=== PATIENT | male | born 1970 | race Caucasian/White ===

== ENCOUNTER 2016-07-17 13:38 | Inpatient (IN) | payer SELFPAY ==
[~2016-07-17] VITALS: Ht 177.8 cm; Wt 54.6 kg
[~2016-07-17 13:38] MED LIST: CLIN1CAP5 PO; MULT1TAB84 PO; PERI0.126 SWISH-SPIT; VENTAER INH
[2016-07-17 13:58] VITALS: BP 113/80; PULSE 96; RESP 20; TEMP 98.4
[2016-07-17] MEDS ORDERED: SODIUM CHLORIDE 0.9% FLUSH 10 ML FLUSH IV FLUSH PRN ×2 (14:00→17:30)
--- NOTE | 2016-07-17 14:15 | PD ---
HPI Chief Complaint: Facial Pain or Swelling Time Seen by Provider: 14:12 (Darrell Anthony) Time Seen by Provider: 13:48 (Bassem Parnell MD) Travel History International Travel<30 days: No Contact w/Intl Traveler<30days: No Traveled to known affect area: No (Darrell Anthony) History of Present Illness HPI Patient comes back to the emergency department complaining of continued right jaw pain ongoing over the past 4 months. Patient states that the pain ongoing ever since having surgery done originally June of last year by Dr. Joseph. Patient was noted to be in the hospital last August for osteomyelitis. Patient states he has not followed up with Dr. Joseph secondary to being homeless and and his office not being near where he typically lives. Patient's pain is worse with eating or chewing. Patient has tried [id number] Goody's powder with minimal relief. Patient denies any known injury fevers, nausea, vomiting, chest pain, shortness of breath. Patient has a history of alcohol abuse, tobacco abuse, cocaine abuse, COPD, and pneumonia. (Darrell Anthony) PFSH Past Medical History Hx Anticoagulant Therapy: No Asthma: Yes Blood Disorders: No Cancer: No Cardiovascular Problems: Yes (HTN) Chemotherapy: No COPD: Yes Diminished Hearing: No Endocrine: No Gastrointestinal Disorders: No Genitourinary: No Headaches: Yes Hypertension: Yes Immune Disorder: No Implanted Vascular Access Dvce: No Musculoskeletal: Yes Neurologic: Yes (CHRONIC BACK PAIN) Psychiatric: No Reproductive: No Respiratory: Yes (ASTHMA, COPD) Pneumonia: Yes Radiation Therapy: No Sleep Apnea: Yes (Darrell Anthony) Past Surgical History Body Medical Devices: METAL PLACE IN JAW/ FACE AREA Oral Surgery: Yes (METAL PLATE IN JAW) Other Surgery: Yes ("Plates in (R) jaw) (Darrell Anthony) Social History Alcohol Use: Yes ("beer all day") Tobacco Use: Yes Substance Use: No (Darrell Anthony) Allergies-Medications (Allergen,Severity, Reaction): Coded Allergies: *MDRO Multi-Drug Resistant Organism (Verified Adverse Reaction, Unknown, 02/28/16) MRSA (thigh wound) 2003 MRSA PCR (nares) positive - 07/08/15 Reported Meds & Prescriptions Reported Meds & Active Scripts Active Peridex Liq (Chlorhexidine Gluconate (Mouth) Liq) 0.12% Soln 15 Ml SWISH-SPIT BID 14 Days Reported Multivitamin Adults (Multiple Vitamins W/ Minerals) 1 Tab 1 Tab PO DAILY Ventolin Hfa 18 GM Inh (Albuterol Sulfate) 90 Mcg/Act Aer 2 Puff INH Q4H PRN (Bassem Parnell MD) Review of Systems Except as stated in HPI: all other systems reviewed are Neg (Darrell Anthony ) Physical Exam Narrative GENERAL: Well-developed, well nourished, in no acute distress, and non-ill appearing. SKIN: Focused skin assessment warm and dry. HEAD: Atraumatic. Normocephalic. EYES: Pupils equal and round. EOMI. No scleral icterus. No injection or drainage. ENT: No nasal bleeding or discharge. Mucous membranes pink and moist. Poor dentition with no visible or palpable abscess. There is swelling noted of the right mandible patient reports tender to palpation. This appears unchanged when compared to previous documentations. Floor of the mouth, submandibular, and submental are all to soft palpation. Uvula is midline. NECK: Trachea midline. No cervical lymphadenopathy. Supple. No nuclear rigidity. CARDIOVASCULAR: Regular rate and rhythm. No murmur appreciated. RESPIRATORY: No accessory muscle use. No respiratory distress. Clear to auscultation. Breath sounds equal bilaterally. MUSCULOSKELETAL: No obvious deformities. No clubbing. No cyanosis. No edema. Full range of motion. NEUROLOGICAL: Awake and alert. No obvious cranial nerve deficits. Motor grossly within normal limits. Normal speech. PSYCHIATRIC: Appropriate mood and affect; insight and judgment normal. (Darrell Anthony) Data Data Last Documented VS Vital Signs Date Time Temp Pulse Resp B/P Pulse Ox O2 Delivery O2 Flow Rate FiO2 07/17/16 13:58 98.4 96 20 113/80 (Bassem Parnell MD) Orders Basic Metabolic Panel (Bmp) (07/17/16 14:00) Complete Blood Count With Diff (07/17/16 14:00) Iv Access Insert/Monitor (07/17/16 14:00) Ecg Monitoring (07/17/16 14:00) Oximetry (07/17/16 14:00) Sodium Chloride 0.9% Flush (Ns Flush) (07/17/16 14:00) Ct Facial Bones W Iv Contrast (07/17/16 ) C-Reactive Protein (Crp) (07/17/16 14:00) Iohexol 350 Inj (Omnipaque 350 Inj) (07/17/16 16:53) Ampicillin-Sulbactam Inj (Unasyn Inj) (07/17/16 17:15) Vancomycin Inj (Vancomycin Inj) (07/17/16 17:15) Morphine Inj (Morphine Inj) (07/17/16 17:15) Ondansetron Inj (Zofran Inj) (07/17/16 17:15) Admit Order (Ed Use Only) (07/17/16 17:21) (Bassem Parnell MD) Labs Laboratory Tests Test 07/17/16 14:40 White Blood Count 6.4 TH/MM3 Red Blood Count 3.95 MIL/MM3 Hemoglobin 12.4 GM/DL Hematocrit 36.9 % Mean Corpuscular Volume 93.2 FL Mean Corpuscular Hemoglobin 31.4 PG Mean Corpuscular Hemoglobin 33.7 % Concent Red Cell Distribution Width 13.6 % Platelet Count 57 TH/MM3 Mean Platelet Volume 9.7 FL Neutrophils (%) (Auto) 64.1 % Lymphocytes (%) (Auto) 24.2 % Monocytes (%) (Auto) 8.6 % Eosinophils (%) (Auto) 1.7 % Basophils (%) (Auto) 1.4 % Neutrophils # (Auto) 4.1 TH/MM3 Lymphocytes # (Auto) 1.5 TH/MM3 Monocytes # (Auto) 0.5 TH/MM3 Eosinophils # (Auto) 0.1 TH/MM3 Basophils # (Auto) 0.1 TH/MM3 CBC Comment AUTO DIFF Differential Comment AUTO DIFF CONFIRMED Platelet Estimate LOW Platelet Morphology Comment NORMAL Sodium Level 138 MEQ/L Potassium Level 4.1 MEQ/L Chloride Level 108 MEQ/L Carbon Dioxide Level 21.8 MEQ/L Anion Gap 8 MEQ/L Blood Urea Nitrogen 4 MG/DL Creatinine 0.64 MG/DL Estimat Glomerular Filtration 133 ML/MIN Rate Random Glucose 69 MG/DL Calcium Level 8.2 MG/DL C-Reactive Protein 0.57 MG/DL (Bassem Parnell MD) MDM Medical Decision Making Medical Screen Exam Complete: Yes Emergency Medical Condition: Yes Interpretation(s) CT of the face her by radiologist shows: Extensive swelling involving the grant manager space on the right characteristic of cellulitis and myositis without discrete osteomyelitis. Differential Diagnosis Abscess, cellulitis, osteomyelitis, medical noncompliance, other Narrative Course Patient's exam. Initial laboratory and radiological studies were obtained and reviewed. Patient was placed on a cardiac rehab nurse. IV was established. Patient was given IV antibiotics. Morphine for pain and Zofran for nausea. Discussed all findings plan of care with patient, who is agreeable for admission. All questions were answered. Discussed all findings and plan care of Dr. Parnell, who is in agreement with plan of care and disposition. Patient remained stable throughout ED course. (Darrell Anthony) Physician Communication Physician Communication [phone] Martinez, who is agreeable to admit the patient. ( Darrell Anthony) Diagnosis Primary Impression: Facial cellulitis Additional Impression: Myositis Qualified Code: M60.9 - Myositis of other site, unspecified myositis type Admitting Information Admitting Physician Requests: Admit (Darrell Anthony) Scripts Amoxicillin-Clavulanate (Augmentin)875-125 mg [id number] Mg PO BID #14 TAB Ref 0 not for use in CrCl <30 ml/min. Prov:Karmen Martinez DO 07/19/16 Condition: Stable Darrell Anthony July 17, 2016 14:15 Bassem Parnell MD July 19, 2016 22:06
[2016-07-17 15:01] LABS: AUTOMATED NEUTROPHIL # 4.1 TH/MM3 (1.8-7.7); BASOPHIL # 0.1 TH/MM3 (0-0.2); BASOPHIL % 1.4 % (0.0-2.0); EOSINOPHIL # 0.1 TH/MM3 (0-0.4); EOSINOPHIL % 1.7 % (0.0-4.0); HEMATOCRIT 36.9 % (39.0-51.0); LYMPH % 24.2 % (9.0-44.0); LYMPHOCYTE # 1.5 TH/MM3 (1.0-4.8); MEAN CELL VOLUME 93.2 FL (80.0-100.0); MEAN CORPUSCULAR HEMOGLOBIN 31.4 PG (27.0-34.0); MEAN CORPUSCULAR HGB CONC 33.7 % (32.0-36.0); MONO % 8.6 % (0.0-8.0); NEUT % 64.1 % (16.0-70.0); PLATELET COUNT 57 TH/MM3 (150-450); RED BLOOD COUNT 3.95 MIL/MM3 (4.50-5.90); RED CELL DISTRIBUTION WIDTH 13.6 % (11.6-17.2); WHITE BLOOD COUNT 6.4 TH/MM3 (4.0-11.0)
[2016-07-17 15:07] LABS: HEMO FLAGS AUTO DIFF
[2016-07-17 15:48] LABS: BICARBONATE 21.8 MEQ/L (21.0-32.0); POTASSIUM 4.1 MEQ/L (3.5-5.1)
[2016-07-17 16:10] LABS: PLATELET ESTIMATE SMEAR LOW (NORMAL); PLATELET MORPHOLOGY NORMAL (NORMAL); SCAN/DIFF AUTO DIFF CONFIRMED
[2016-07-17] MEDS ORDERED: IOHEXOL 350 MG/ML 10 ML VIAL (for RAD DIAG) IV ONE (16:53)
--- NOTE | 2016-07-17 17:01 | RADRPT ---
EXAM DATE/TIME: 07/17/2016 16:16 [facility] COMPARISON: CT FACIAL BONES W CONTRAST, February 28, 2016, 19:39. INDICATIONS : Jaw surgery with ongoing swelling. IV CONTRAST: 98 cc Omnipaque 350 (iohexol) IV RADIATION DOSE: 45.48 CTDIvol (mGy) MEDICAL HISTORY : Hypertension. SURGICAL HISTORY : jaw surgery ENCOUNTER: Subsequent ACUITY: 7 - 11 months PAIN SCALE: 6/10 LOCATION: Right jaw TECHNIQUE: Volumetric scanning of the facial bones was performed. Using automated exposure control and adjustme nt of the mA and/or kV according to patient size, radiation dose was kept as low as reasonably achiev able to obtain optimal diagnostic quality images. FINDINGS: There is internal fixation of the mandible with an ununited fracture just to the right of the midline . There is also ununited fracture involving the base of the condylar neck on the right side. Malleabl e plate is present. There is no bony destruction or periosteal reaction to suggest osteomyelitis. The condylar heads are not dislocated. Soft tissue images demonstrate marked swelling and edema involving the masseter muscle as well as the lateral pterygoid with edema and fluid involving the staff antisubmarine officer space. This is at least in part expeller worker jen as this was present in January 2016 but now appears worse. There is no evidence of abscess. Reac tive adenopathy is present in the submandibular space and group 2 on the right. CONCLUSION: 1. Extensive swelling involving the staff antisubmarine officer space on the right characteristic of cellulitis and my ositis without discrete osteomyelitis. Bruce Hankins MD on July 17, 2016 at 16:55 Board Certified Radiologist. This report was verified electronically.
[2016-07-17] MEDS ORDERED: ONDANSETRON HCL 4 MG/2 ML VIAL IV PUSH ONE (17:15)
[2016-07-17] MEDS ORDERED: MORPHINE SULFATE 4 MG/ML INJ IV PUSH ONE (17:15)
[2016-07-17] MEDS ORDERED: VANCOMYCIN INJ 1,000 MG in SODIUM CHLOR 0.9% 250 ML INJ 250 ML IV ONE (17:15)
[2016-07-17] MEDS ORDERED: AMPICILLIN-SULBACTAM INJ 3 GM VIAL IM ONE (17:15)
[2016-07-17] MEDS ORDERED: ACETAMINOPHEN 325 MG TAB PO PRN (17:30)
[2016-07-17] MEDS ORDERED: NALOXONE HCL 0.4 MG/ML AMP IV PRN (17:30)
[2016-07-17] MEDS ORDERED: MAGNESIUM HYDROXIDE SUSP 30 ML CUP PO PRN (17:30)
[2016-07-17] MEDS ORDERED: ONDANSETRON HCL 4 MG/2 ML VIAL IVP PRN (17:30)
[2016-07-17] MEDS ORDERED: MORPHINE SULFATE 4 MG/ML INJ IV PUSH PRN (17:30)
--- NOTE | 2016-07-17 17:33 | HHI.HP ---
HPI Service [facility] Primary Care Physician Monie Granados MD Admission Diagnosis facial cellulitis and myositis Diagnoses: Chief Complaint: Right facial swelling, pain. Travel History International Travel<30 Days: No Contact w/Intl Traveler <30 Da: No Traveled to Known Affected Are: No History of Present Illness Mr. Forrester is a 46-year-old male with a history of bilateral mandible fractures who presents to the emergency department on 07/17/2016 with right jaw pain for the last 4 months. He reports worsening pain with eating or chewing. However he is able to maintain soft diet and no airway compromise. He reports subjective fever and chills as well as dizziness. Patient underwent removal of failed jaw hardware on the right side on October 07, 2015. Patient was discharged on Augmentin. He was supposed to follow-up with Dr. Joseph. However patient is homeless and has been unable to follow-up with Dr. Joseph. He denies any changes in bowel or bladder habits. Denies any chest pain, shortness of breath, nausea or vomiting. Review of Systems Except as stated in HPI: all other systems reviewed are Neg Past Family Social History Past Medical History Hypertension, COPD, pneumonia, chronic back pain, asthma Past Surgical History ORIF of bilateral mandibles. Reported Medications Peridex Liq (Chlorhexidine Gluconate (Mouth) Liq) 0.12% Soln 15 Ml SWISH-SPIT BID 14 Days Clindamycin (Clindamycin HCl) 150 Mg Cap 300 Mg PO Q6H 10 Days Reported Multivitamin Adults (Multiple Vitamins W/ Minerals) 1 Tab 1 Tab PO DAILY Ventolin Hfa 18 GM Inh (Albuterol Sulfate) 90 Mcg/Act Aer 2 Puff INH Q4H PRN Allergies: Coded Allergies: *MDRO Multi-Drug Resistant Organism (Verified Adverse Reaction, Unknown, 02/28/16) MRSA (thigh wound) 2003 MRSA PCR (nares) positive - 07/08/15 Family History Motherdiabetes DadCOPD and asthma. Social History Patient reports smoking 1 pack a day. Drinks about 4 packs a day. Physical Exam Vital Signs Vital Signs Date Time Temp Pulse Resp B/P Pulse Ox O2 Delivery O2 Flow Rate FiO2 07/17/16 13:58 98.4 96 20 113/80 Physical Exam GENERAL: This is a well-nourished, well-developed patient, in no apparent distress. SKIN: No rashes, ecchymoses or lesions. Warm and dry. HEAD: Atraumatic. Normocephalic. No temporal or scalp tenderness. EYES: Pupils equal round and reactive. No injection or drainage. ENT: Nose without bleeding, purulent drainage or septal hematoma. Airway patent. Right jaw area is severely swollen. Tender to palpation. NECK: Trachea midline. No lymphadenopathy. Supple, nontender, no meningeal signs. CARDIOVASCULAR: Regular rate and rhythm without murmurs, gallops, or rubs. No JVD. RESPIRATORY: Clear to auscultation. Breath sounds equal bilaterally. No wheezes , rales, or rhonchi. GASTROINTESTINAL: Abdomen soft, non-tender, nondistended. No guarding. MUSCULOSKELETAL: Extremities without clubbing, cyanosis, or edema. NEUROLOGICAL: Awake and alert. Cranial nerves II through XII intact. No focal neurological deficits. Normal speech. Laboratory Laboratory Tests Test 07/17/16 14:40 White Blood Count 6.4 Red Blood Count 3.95 Hemoglobin 12.4 Hematocrit 36.9 Mean Corpuscular Volume 93.2 Mean Corpuscular Hemoglobin 31.4 Mean Corpuscular Hemoglobin 33.7 Concent Red Cell Distribution Width 13.6 Platelet Count 57 Mean Platelet Volume 9.7 Neutrophils (%) (Auto) 64.1 Lymphocytes (%) (Auto) 24.2 Monocytes (%) (Auto) 8.6 Eosinophils (%) (Auto) 1.7 Basophils (%) (Auto) 1.4 Neutrophils # (Auto) 4.1 Lymphocytes # (Auto) 1.5 Monocytes # (Auto) 0.5 Eosinophils # (Auto) 0.1 Basophils # (Auto) 0.1 CBC Comment AUTO DIFF Differential Comment AUTO DIFF CONFIRMED Platelet Estimate LOW Platelet Morphology Comment NORMAL Sodium Level 138 Potassium Level 4.1 Chloride Level 108 Carbon Dioxide Level 21.8 Anion Gap 8 Blood Urea Nitrogen 4 Creatinine 0.64 Estimat Glomerular Filtration 133 Rate Random Glucose 69 Calcium Level 8.2 C-Reactive Protein 0.57 Result Diagram: 07/17/16 1440 07/17/16 1440 Imaging Last Impressions Maxillofacial CT 5/19/17 0000 Signed Impressions: Service Date/Time: Sunday, July 17, 2016 16:16 - CONCLUSION: 1. Extensive swelling involving the quality control director space on the right characteristic of cellulitis and myositis without discrete osteomyelitis. Bruce Hankins MD Assessment and Plan Problem List: (1) Cellulitis of quality control director space of mouth ICD Code: K12.2 Status: Acute (2) Myositis ICD Code: M60.9 Status: Acute (3) Alcohol abuse ICD Code: F10.10 Status: Chronic (4) Tobacco abuse ICD Code: Z72.0 Status: Chronic Assessment and Plan Mr. Forrester is a 46-year-old male with a history of bilateral mandible fracture , recent surgery for failed hardware on the right side of the jaw, presented to the emergency department on 07/17/2016 due to ongoing right jaw pain and swelling. He reports subjective fever, chills, dizziness. He is able to maintain nutrition intact airway. CT study indicates quality control director space cellulitis and myositis. - Right quality control director space cellulitis - Right quality control director myositis. - Patient does not have symptoms of acute infection other than subjective fever, chills. - Will consult Oral surgery. Start Unasyn 3g [id number] for now. We can switch to Oral abx after Oral surgery evaluation. - Percocet PRN, Morphine PRN for pain. - Alcohol abuse - Tobacco abuse - Patient is strongly encouraged not to use tobacco or alcohol. He verbalized understanding. - Initiate CIWA protocol Full code. SCDs, Ambulation. Physician Certification 2 Midnight Certification Type: Admission for Inpatient Services Order for Inpatient Services The services are ordered in accordance with Medicare regulations or non- Medicare payer requirements, as applicable. In the case of services not specified as inpatient-only, they are appropriately provided as inpatient services in accordance with the 2-midnight benchmark. Estimated LOS (days): 2 days is the estimated time the patient will need to remain in the hospital, assuming treatment plan goals are met and no additional complications. Post-Hospital Plan: Home Problem Qualifiers (1) Myositis: Qualified Code: M60.9 - Myositis of other site, unspecified myositis type Karmen Martinez DO July 17, 2016 5:33 pm
[2016-07-17] MEDS ORDERED: SODIUM CHLOR 0.9% 250 ML INJ 250 ML ONE (17:51)
[2016-07-17] MEDS: SODIUM CHLORIDE 0.9% FLUSH 10 ML FLUSH IV FLUSH SCH (20:10)
[2016-07-17] MEDS ORDERED: FLUMAZENIL 0.5 MG/5 ML VIAL IV PUSH PRN (20:30)
[2016-07-17] MEDS ORDERED: LORazepam 2 MG TAB PO PRN (20:30)
[2016-07-17] MEDS ORDERED: LORazepam 2 MG/ML VIAL IV PUSH PRN ×4 (20:30)
[2016-07-17 21:00] VITALS: BP 126/83; PULSE 100; RESP 17; TEMP 97.9; O2SAT 93
[2016-07-17] MEDS ORDERED: REMOVE OLD PATCH T-DERMAL SCH (21:00)
[2016-07-17] MEDS: oxyCODONE/ACETAMINOPHEN 7.5 MG/325 MG TAB PO PRN (21:46)
[2016-07-17] MEDS: NICOTINE 14 MG/24 HR PATCH T-DERMAL SCH (21:46)
[2016-07-18] VITALS: BP 120/80; PULSE 88; RESP 19; TEMP 97.1; O2SAT 94
[2016-07-18] MEDS: oxyCODONE/ACETAMINOPHEN 7.5 MG/325 MG TAB PO PRN ×3 (05:16→21:14)
[2016-07-18] MEDS: LORazepam 1 MG TAB PO PRN ×3 (05:24→21:13)
[2016-07-18 05:30] VITALS: BP 118/80; PULSE 80; RESP 18; TEMP 97.7; O2SAT 98
[2016-07-18 06:48] LABS: AUTOMATED NEUTROPHIL # 3.2 TH/MM3 (1.8-7.7); BASOPHIL # 0.1 TH/MM3 (0-0.2); BASOPHIL % 1.6 % (0.0-2.0); EOSINOPHIL # 0.1 TH/MM3 (0-0.4); EOSINOPHIL % 1.6 % (0.0-4.0); LYMPH % 23.1 % (9.0-44.0); LYMPHOCYTE # 1.2 TH/MM3 (1.0-4.8); MEAN CELL VOLUME 92.2 FL (80.0-100.0); MEAN CORPUSCULAR HEMOGLOBIN 31.2 PG (27.0-34.0); MEAN CORPUSCULAR HGB CONC 33.8 % (32.0-36.0); NEUT % 60.7 % (16.0-70.0); PLATELET COUNT 38 TH/MM3 (150-450); RED BLOOD COUNT 4.01 MIL/MM3 (4.50-5.90); RED CELL DISTRIBUTION WIDTH 13.4 % (11.6-17.2); WHITE BLOOD COUNT 5.3 TH/MM3 (4.0-11.0)
[2016-07-18 07:00] LABS: HEMO FLAGS AUTO DIFF
[2016-07-18 07:10] LABS: BICARBONATE 24.4 MEQ/L (21.0-32.0); POTASSIUM 3.6 MEQ/L (3.5-5.1)
[2016-07-18 08:00] VITALS: BP 104/64; PULSE 86; RESP 16; TEMP 98.8; O2SAT 94
[2016-07-18] MEDS ORDERED: CLINDAMYCIN 150 MG CAP PO SCH (09:00)
[2016-07-18] MEDS ORDERED: LEVOFLOXACIN 750 MG TAB PO SCH (09:00)
[2016-07-18] MEDS ORDERED: PNEUMOCOCCAL POLYVALENT INJ 25 MCG/0.5 ML SYR IM ONE (09:00)
[2016-07-18] MEDS ORDERED: INFLUENZA VIRUS VACCINE (QUADRIVALENT) 0.5 ML SYR IM ONE (09:00)
[2016-07-18] MEDS: SODIUM CHLORIDE 0.9% FLUSH 10 ML FLUSH IV FLUSH SCH ×2 (09:08→21:15)
[2016-07-18 09:28] LABS: PLATELET ESTIMATE SMEAR LOW (NORMAL); PLATELET MORPHOLOGY ENLARGED (NORMAL); SCAN/DIFF AUTO DIFF CONFIRMED; TARGET CELLS 1+ (NORMAL)
[2016-07-18] MEDS: AMPICILLIN-SULBACTAM INJ 3 GM in SODIUM CHLORIDE 0.9% INJ 100 ML IV SCH ×3 (10:00→21:15)
[2016-07-18 12:00] VITALS: BP 110/70; PULSE 64; RESP 18; TEMP 98.9; O2SAT 94
--- NOTE | 2016-07-18 13:39 | HHI.PR ---
Subjective Remarks Follow up for right classroom coordinator space cellulitis, myositis. Patient is doing well. He reports subjective fever. Pain continues to be persistent. Oral surgery has not evaluated patient yet. Objective Vitals Vital Signs Date Time Temp Pulse Resp B/P Pulse Ox O2 Delivery O2 Flow Rate FiO2 07/18/16 12:00 98.9 64 18 110/70 94 07/18/16 08:00 98.8 86 16 104/64 94 07/18/16 05:30 97.7 80 18 118/80 98 07/18/16 00:00 97.1 88 19 120/80 94 07/17/16 22:46 18 07/17/16 21:00 97.9 100 17 126/83 93 07/17/16 13:58 98.4 96 20 113/80 I/O 07/17/16 07/17/16 07/17/16 07/18/16 07/18/16 07/18/16 07:00 15:00 23:00 07:00 15:00 23:00 Intake Total 900 ml 800 ml 100 ml Balance 900 ml 800 ml 100 ml Intake Oral 900 ml 800 ml IV Total 100 ml # Voids 1 2 # Bowel Movements 0 0 1 Result Diagram: 07/18/16 0541 07/18/16 0541 Imaging Last Impressions Maxillofacial CT 07/17/16 0000 Signed Impressions: Service Date/Time: Sunday, July 17, 2016 16:16 - CONCLUSION: 1. Extensive swelling involving the classroom coordinator space on the right characteristic of cellulitis and myositis without discrete osteomyelitis. Bruce Hankins MD Objective Remarks GENERAL: AOX3, NAD. SKIN: Warm and dry. HEAD: Normocephalic. EYES: No scleral icterus. No injection or drainage. ENT: Supple, trachea midline. No JVD or lymphadenopathy. Right jaw swelling, tenderness noted. CARDIOVASCULAR: Regular rate and rhythm without murmurs, gallops, or rubs. RESPIRATORY: Breath sounds equal bilaterally. No accessory muscle use. GASTROINTESTINAL: Abdomen soft, non-tender, nondistended. MUSCULOSKELETAL: No cyanosis, or edema. BACK: Nontender without obvious deformity. No CVA tenderness. Procedures None. A/P Problem List: (1) Cellulitis of classroom coordinator space of mouth ICD Code: K12.2 Status: Acute (2) Myositis ICD Code: M60.9 Status: Acute (3) Alcohol abuse ICD Code: F10.10 Status: Chronic (4) Tobacco abuse ICD Code: Z72.0 Status: Chronic Assessment and Plan Mr. Forrester is a 46-year-old male with a history of bilateral mandible fracture , recent surgery for failed hardware on the right side of the jaw, presented to the emergency department on 07/17/2016 due to ongoing right jaw pain and swelling. He reports subjective fever, chills, dizziness. He is able to maintain nutrition intact airway. CT study indicates classroom coordinator space cellulitis and myositis. - Right classroom coordinator space cellulitis - Right classroom coordinator myositis. - Patient does not have symptoms of acute infection other than subjective fever, chills. - Oral surgery consult pending. Continue Unasyn 3g [id number] for now. We can switch to Oral abx after Oral surgery evaluation. - Percocet PRN, Morphine PRN for pain. - Alcohol abuse - Tobacco abuse - Patient is strongly encouraged not to use tobacco or alcohol. He verbalized understanding. - Continue CIWA protocol Full code. SCDs, Ambulation. Problem Qualifiers (1) Myositis: Qualified Code: M60.9 - Myositis of other site, unspecified myositis type Karmen Martinez DO July 18, 2016 13:39
[2016-07-18 16:35] VITALS: BP 120/86; PULSE 95; RESP 18; TEMP 98.7; O2SAT 98
[2016-07-18 20:30] VITALS: BP 113/76; PULSE 115; RESP 19; TEMP 97.7; O2SAT 94
[2016-07-18] MEDS ORDERED: REMOVE OLD PATCH T-DERMAL SCH (21:00)
[2016-07-18] MEDS: NICOTINE 14 MG/24 HR PATCH T-DERMAL SCH (21:15)
[2016-07-19 00:40] VITALS: BP 130/67; PULSE 115; RESP 17; TEMP 98; O2SAT 98
[2016-07-19] MEDS: oxyCODONE/ACETAMINOPHEN 7.5 MG/325 MG TAB PO PRN (03:03)
[2016-07-19] MEDS: LORazepam 1 MG TAB PO PRN (03:09)
[2016-07-19] MEDS: AMPICILLIN-SULBACTAM INJ 3 GM in SODIUM CHLORIDE 0.9% INJ 100 ML IV SCH ×2 (03:20→10:00)
[2016-07-19 05:50] VITALS: BP 115/70; PULSE 118; RESP 20; TEMP 97.7; O2SAT 97
[2016-07-19 08:00] VITALS: BP 105/66; PULSE 91; RESP 18; TEMP 98.6; O2SAT 93
[2016-07-19 08:04] VITALS: RESP 17
[2016-07-19] MEDS ORDERED: AUGM875T PO (09:54)
--- NOTE | 2016-07-19 09:55 | HHI.PR ---
Subjective Remarks Follow up for right retention manager space cellulitis, myositis. Patient is currently doing well. Denies any chest pain, shortness of breath, fever or chills. He is tolerating diet well. Objective Vitals Vital Signs Date Time Temp Pulse Resp B/P Pulse Ox O2 Delivery O2 Flow Rate FiO2 07/19/16 08:04 17 07/19/16 08:00 98.6 91 18 105/66 93 07/19/16 05:50 97.7 118 20 115/70 97 07/19/16 00:40 98.0 115 17 130/67 98 07/18/16 20:30 97.7 115 19 113/76 94 07/18/16 16:35 98.7 95 18 120/86 98 07/18/16 12:00 98.9 64 18 110/70 94 I/O 07/18/16 07/18/16 07/18/16 07/19/16 07/19/16 07/19/16 07:00 15:00 23:00 07:00 15:00 23:00 Intake Total 800 ml 460 ml 900 ml 600 ml Output Total 450 ml Balance 800 ml 460 ml 900 ml 150 ml Intake Oral 800 ml 360 ml 900 ml 600 ml IV Total 100 ml Output Urine Total 450 ml # Voids 2 1 3 # Bowel Movements 0 1 0 0 Result Diagram: 07/18/16 0541 07/18/16 0541 Imaging Last Impressions Maxillofacial CT 07/17/16 0000 Signed Impressions: Service Date/Time: Sunday, July 17, 2016 16:16 - CONCLUSION: 1. Extensive swelling involving the retention manager space on the right characteristic of cellulitis and myositis without discrete osteomyelitis. Bruce Hankins MD Objective Remarks GENERAL: AOX3, NAD. SKIN: Warm and dry. HEAD: Normocephalic. EYES: No scleral icterus. No injection or drainage. ENT: Supple, trachea midline. No JVD or lymphadenopathy. Right jaw swelling, tenderness noted. CARDIOVASCULAR: Regular rate and rhythm without murmurs, gallops, or rubs. RESPIRATORY: Breath sounds equal bilaterally. No accessory muscle use. GASTROINTESTINAL: Abdomen soft, non-tender, nondistended. MUSCULOSKELETAL: No cyanosis, or edema. BACK: Nontender without obvious deformity. No CVA tenderness. Procedures None. A/P Problem List: (1) Cellulitis of retention manager space of mouth ICD Code: K12.2 Status: Acute (2) Myositis ICD Code: M60.9 Status: Acute (3) Alcohol abuse ICD Code: F10.10 Status: Chronic (4) Tobacco abuse ICD Code: Z72.0 Status: Chronic Assessment and Plan Mr. Forrester is a 46-year-old male with a history of bilateral mandible fracture , recent surgery for failed hardware on the right side of the jaw, presented to the emergency department on 07/17/2016 due to ongoing right jaw pain and swelling. He reports subjective fever, chills, dizziness. He is able to maintain nutrition intact airway. CT study indicates retention manager space cellulitis and myositis. - Right retention manager space cellulitis - Right retention manager myositis. - Patient does not have symptoms of acute infection other than subjective fever, chills. - Oral surgery consult pending. Continue Unasyn 3g [id number] for now. We can switch to Oral abx after Oral surgery evaluation. - Percocet PRN, Morphine PRN for pain. - Patient decided to leave AGAINST MEDICAL ADVICE. We provided seven-day course of Augmentin. - Alcohol abuse - Tobacco abuse - Patient is strongly encouraged not to use tobacco or alcohol. He verbalized understanding. - Continue CIWA protocol Full code. SCDs, Ambulation. Discharge patient AGAINST MEDICAL ADVICE. Condition on discharge: Improved Regular Diet as tolerated Ad Sarah activity Rx written: - Augmentin 875 mg twice a day for 7 days Follow-up with primary care physician within one week and oral surgery follow- up within 2-3 days. Problem Qualifiers (1) Myositis: Qualified Code: M60.9 - Myositis of other site, unspecified myositis type Karmen Martinez DO July 19, 2016 9:55 am
[2016-07-19] MEDS: SODIUM CHLORIDE 0.9% FLUSH 10 ML FLUSH IV FLUSH SCH (10:29)
== END 2016-07-19 10:19 | disposition left against medical advice (07) | DRG 159 ==
LOC: NEPD 13:38 → NEDA 17:22 → N05B 20:07
PROVIDERS: ADMIT Hospitalist; ATTEND Hospitalist
DX: K12.2 Cellulitis and abscess of mouth (principal); I10 Essential (primary) hypertension; G47.30 Sleep apnea, unspecified; J44.9 Chronic obstructive pulmonary disease, unspecified; J45.909 Unspecified asthma, uncomplicated; M60.9 Myositis, unspecified; F17.210 Nicotine dependence, cigarettes, uncomplicated; F10.10 Alcohol abuse, uncomplicated; Z59.0 Homelessness
CPT/HCPCS: 70487; 80048; 85025; 86140; 90732; 99284; J0295; J2060; J2270; J2405; J3370; J7050; Q9967

== ENCOUNTER 2016-12-06 11:27 | Inpatient (IN) | payer SELFPAY ==
[2016-12-06] VITALS (9 sets, daily range): BP systolic 97–129; BP diastolic 62–88; PULSE 89–111; RESP 18–20; TEMP 98.2–100.7; O2SAT 91–100
[~2016-12-06] VITALS: Ht 177.8 cm; Wt 63.4 kg
[~2016-12-06 11:27] MED LIST changes: +AUGM875T PO; -CLIN1CAP5 PO
--- NOTE | 2016-12-06 12:07 | PD ---
HPI Chief Complaint: Respiratory Distress Time Seen by Provider: 11:49 Travel History International Travel<30 days: No Contact w/Intl Traveler<30days: No Traveled to known affect area: No History of Present Illness HPI This patient complains of right sided jaw swelling. He has had it for 8 months. Patient had jaw reconstructive surgery June 2015. Was hospitalized June 2016 for an infection in that area but he left AMA. He is a homeless alcoholic who has not followed up with anybody since. Now his right side of his face is swollen up like a baseball. Symptoms moderately severe. Symptoms are exacerbated by his noncompliance. No alleviating factors. He was drinking alcohol earlier today. PFSH Past Medical History Hx Anticoagulant Therapy: No Asthma: Yes Blood Disorders: No Cancer: No Cardiovascular Problems: Yes (HTN) Chemotherapy: No COPD: Yes Diminished Hearing: No Endocrine: No Gastrointestinal Disorders: No Genitourinary: No Headaches: Yes Hypertension: Yes Immune Disorder: No Implanted Vascular Access Dvce: Yes Musculoskeletal: Yes Neurologic: Yes (CHRONIC BACK PAIN) Psychiatric: No Reproductive: No Respiratory: Yes (ASTHMA, COPD) Pneumonia: Yes Radiation Therapy: No Sleep Apnea: Yes Tetanus Vaccination: < 5 Years Influenza Vaccination: Yes Past Surgical History Body Medical Devices: METAL PLACE IN JAW/ FACE AREA Oral Surgery: Yes (METAL PLATE IN JAW) Other Surgery: Yes ("Plates in (R) jaw) Social History Alcohol Use: Yes ("beer all day") Tobacco Use: Yes (PPD) Substance Use: No Allergies-Medications (Allergen,Severity, Reaction): Coded Allergies: *MDRO Multi-Drug Resistant Organism (Verified Adverse Reaction, Unknown, 12/06/16) MRSA (thigh wound) 2003 MRSA PCR (nares) positive - 07/08/15 Reported Meds & Prescriptions Reported Meds & Active Scripts Active Reported Ventolin Hfa 18 GM Inh (Albuterol Sulfate) 90 Mcg/Act Aer 2 Puff INH Q4H PRN Review of Systems General / Constitutional: No: Fever Eyes: No: Visual changes HENT: No: Headaches Cardiovascular: No: Chest Pain or Discomfort Respiratory: No: Shortness of Breath Gastrointestinal: No: Abdominal Pain Genitourinary: No: Dysuria Musculoskeletal: Positive: Pain Skin: No Rash Neurologic: No: Weakness Psychiatric: Positive: Substance Abuse, No: Depression Endocrine: No: Polydipsia Hematologic/Lymphatic: No: Easy Bruising Physical Exam Narrative GENERAL: Thin cachectic disheveled patient in no apparent distress. SKIN: Focused skin assessment reveals no rash and nodules. Skin is Warm and dry. HEAD: Atraumatic. Normocephalic. EYES: Pupils equal and round. No scleral icterus. No injection or drainage. ENT: No nasal bleeding or discharge. Mucous membranes pink and moist. Has extensive swelling to the right mandible area. There is some tenderness there there is no fluctuance or drainage. Oral cavity examination reveals that his hardware is visible all along the inner gumline on the right side. NECK: Trachea midline. No JVD. CARDIOVASCULAR: Regular rate and rhythm. No murmur appreciated. RESPIRATORY: No accessory muscle use. Occasional expiratory wheeze. Breath sounds equal bilaterally. GASTROINTESTINAL: Abdomen soft, non-tender, nondistended. Hepatic and splenic margins not palpable. MUSCULOSKELETAL: No obvious deformities. No clubbing. No cyanosis. Symmetric edema of the lower legs NEUROLOGICAL: Awake and alert. No obvious cranial nerve deficits. Motor grossly within normal limits. Normal speech. PSYCHIATRIC: Appropriate mood and affect; insight and judgment normal. Data Data Last Documented VS Vital Signs Date Time Temp Pulse Resp B/P (MAP) Pulse Ox O2 Delivery O2 Flow Rate FiO2 12/06/16 11:33 98.6 91 18 97/62 (74) 95 Orders Orders Iv Access Insert/Monitor (12/06/16 12:01) Complete Blood Count With Diff (12/06/16 12:01) Basic Metabolic Panel (Bmp) (12/06/16 12:01) Prothrombin Time / Inr (Pt) (12/06/16 12:01) Act Partial Throm Time (Ptt) (12/06/16 12:01) Alcohol (Ethanol) (12/06/16 12:01) Ct Facial Bones W Iv Contrast (12/06/16 ) Chest, Single Ap (12/06/16 ) Sodium Chlor 0.9% 1000 Ml Inj (Ns 1000 M (12/06/16 12:15) Iohexol 350 Inj (Omnipaque 350 Inj) (12/06/16 12:54) Piperacil-Tazo 3.375 Gm Premix (Zosyn 3. (12/06/16 14:00) Admit Order (Ed Use Only) (12/06/16 14:11) Labs Laboratory Tests Test 12/06/16 11:40 White Blood Count 7.4 TH/MM3 Red Blood Count 3.38 MIL/MM3 Hemoglobin 10.5 GM/DL Hematocrit 31.3 % Mean Corpuscular Volume 92.4 FL Mean Corpuscular Hemoglobin 31.1 PG Mean Corpuscular Hemoglobin Concent 33.7 % Red Cell Distribution Width 13.5 % Platelet Count 88 TH/MM3 Mean Platelet Volume 9.7 FL Neutrophils (%) (Auto) 70.8 % Lymphocytes (%) (Auto) 18.1 % Monocytes (%) (Auto) 6.6 % Eosinophils (%) (Auto) 1.6 % Basophils (%) (Auto) 2.9 % Neutrophils # (Auto) 5.2 TH/MM3 Lymphocytes # (Auto) 1.3 TH/MM3 Monocytes # (Auto) 0.5 TH/MM3 Eosinophils # (Auto) 0.1 TH/MM3 Basophils # (Auto) 0.2 TH/MM3 CBC Comment AUTO DIFF Differential Total Cells Counted 100 Neutrophils % (Manual) 56 % Band Neutrophils % 9 % Lymphocytes % 25 % Monocytes % 5 % Eosinophils % 2 % Basophils % 2 % Neutrophils # (Manual) 4.9 TH/MM3 Metamyelocytes 1 % Differential Comment FINAL DIFF MANUAL Toxic Granulation 1+ Platelet Estimate LOW Platelet Morphology Comment ENLARGED Prothrombin Time 12.9 SEC Prothromb Time International Ratio 1.2 RATIO Activated Partial Thromboplast Time 32.7 SEC Blood Urea Nitrogen 5 MG/DL Creatinine 0.46 MG/DL Random Glucose 75 MG/DL Calcium Level 7.7 MG/DL Sodium Level 135 MEQ/L Potassium Level 4.0 MEQ/L Chloride Level 104 MEQ/L Carbon Dioxide Level 20.0 MEQ/L Anion Gap 11 MEQ/L Estimat Glomerular Filtration Rate 195 ML/MIN Ethyl Alcohol Level 283 MG/DL [facility] Medical Decision Making Medical Screen Exam Complete: Yes Emergency Medical Condition: Yes Medical Record Reviewed: Yes Differential Diagnosis Osteomyelitis of the jaw, abscess, cellulitis Narrative Course I have reviewed the patient's electronic medical record. Reviewed his ID consultation from 2015 as well as his most recent progress note from his June 2016 hospital stay when he left AMA IV placed Gave him a liter of normal saline IV His initial blood pressure is in the 90s systolic Alcohol level is elevated indicating acute intoxication CBC shows mild anemia and significant thrombocytopenia Metabolic profile reasonably normal Coagulation studies INR slightly elevated I reviewed his chest x-ray shows questionable infiltrate CT of facial bones with IV contrast shows significant abnormal findings including abscess and osteomyelitis changes I reviewed the case in detail with Dr. Joseph, maxillofacial surgeon. He recommends IV anabiotic some Zosyn and admitted to the hospitalist and he will be a senior telecommunications consultant and see the patient later today. I placed a call to the hospitalist to discuss Diagnosis Primary Impression: Acute osteomyelitis of mandible Additional Impressions: Mandibular abscess Alcohol intoxication in active alcoholic Qualified Codes: F10.229 - Alcohol dependence with intoxication, unspecified Admitting Information Admitting Physician Requests: Admit Leodan Vazquez MD Dec 06, 2016 12:07
[2016-12-06] MEDS ORDERED: SODIUM CHLOR 0.9% 1000 ML INJ 1,000 ML IV ONE (12:15)
--- NOTE | 2016-12-06 12:37 | RADRPT ---
EXAM DATE/TIME: 12/06/2016 12:08 [facility] COMPARISON: CHEST SINGLE AP, February 28, 2016, 17:53. INDICATIONS : Shortness of breath. MEDICAL HISTORY : Chronic obstructive pulmonary disease. Asthma. Pneumonia. SURGICAL HISTORY : None. ENCOUNTER: Initial ACUITY: 1 day PAIN SCORE: 0/10 LOCATION: Bilateral chest FINDINGS: There are COPD changes. There is an area of atelectasis or infiltrate at the left lung base. This is new compared to previous. The heart is normal in size. The mediastinal contours are within normal limits there The osseous structures are intact. CONCLUSION: 1. There is a new area of atelectasis or infiltrate at the left lung base. Pneumonia is not excluded. 2. COPD changes. Sage Navas MD on December 06, 2016 at 12:29 Board Certified Radiologist. This report was verified electronically.
[2016-12-06] MEDS ORDERED: IOHEXOL 350 MG/ML 10 ML VIAL (for RAD DIAG) IVCONTRAST ONE (12:54)
--- NOTE | 2016-12-06 13:01 | RADRPT ---
EXAM DATE/TIME: 12/06/2016 12:23 [facility] COMPARISON: CT FACIAL BONES W CONTRAST, July 17, 2016, 16:16. INDICATIONS : Right facial swelling for eight months. IV CONTRAST: 85 cc Omnipaque 350 (iohexol) IV RADIATION DOSE: 36.81 CTDIvol (mGy) MEDICAL HISTORY : Cardiovascular disease. SURGICAL HISTORY : Mandible repair. ENCOUNTER: Initial ACUITY: 7 - 11 months PAIN SCALE: 5/10 LOCATION: Right facial TECHNIQUE: Volumetric scanning of the facial bones was performed. Using automated exposure control and adjustme nt of the mA and/or kV according to patient size, radiation dose was kept as low as reasonably achiev able to obtain optimal diagnostic quality images. DICOM format image data is available electronicall y for review and comparison. FINDINGS: The examination demonstrates extensive abnormal soft tissue swelling involving the communications systems engineer space o n the right. There is now a large area of low density, septated fluid collection involving the mastic ator space and inferior aspect of the right parotid gland. This extends superiorly along the mandibul ar ramus. There is hardware within the mandible from a previous mandibular fracture. There is gas shawnee dent lateral to the hardware. There is cortical destruction of the mandible. Findings would be consis tent with osteomyelitis and abscess. There are 2 enlarged nodes in the submandibular space. The largest measures 1.6 cm. These are felt to be reactive. The limited portion of brain parenchyma visualized is unremarkable. There is fluid within the maxilla ry sinuses suggesting sinusitis. The exam does demonstrate some mild mass effect on the parapharyngea l space on the right. There is slight shift of the airway towards the left. The left parotid gland is intact. The submandibular glands are intact. The larynx is intact. CONCLUSION: 1. There has been prior plating of a mandibular fracture. There is a large area of abnormal soft tiss ue and a septated fluid collection involving the right communications systems engineer space with extension into the daniel ter muscle on the right and up into the right parotid gland. There is rarefaction of bone around the patient's plate. Findings would be consistent with osteomyelitis and abscess. Findings are discussed in detail above. Sage Navas MD on December 06, 2016 at 12:54 Board Certified Radiologist. This report was verified electronically.
[2016-12-06 13:12] LABS: AUTOMATED NEUTROPHIL # 5.2 TH/MM3 (1.8-7.7); BASOPHIL # 0.2 TH/MM3 (0-0.2); BASOPHIL % 2.9 % (0.0-2.0); EOSINOPHIL # 0.1 TH/MM3 (0-0.4); EOSINOPHIL % 1.6 % (0.0-4.0); HEMATOCRIT 31.3 % (39.0-51.0); LYMPH % 18.1 % (9.0-44.0); LYMPHOCYTE # 1.3 TH/MM3 (1.0-4.8); MEAN CELL VOLUME 92.4 FL (80.0-100.0); MEAN CORPUSCULAR HEMOGLOBIN 31.1 PG (27.0-34.0); MEAN CORPUSCULAR HGB CONC 33.7 % (32.0-36.0); MONO % 6.6 % (0.0-8.0); NEUT % 70.8 % (16.0-70.0); PLATELET COUNT 88 TH/MM3 (150-450); RED BLOOD COUNT 3.38 MIL/MM3 (4.50-5.90); RED CELL DISTRIBUTION WIDTH 13.5 % (11.6-17.2); WHITE BLOOD COUNT 7.4 TH/MM3 (4.0-11.0)
[2016-12-06 13:16] LABS: HEMO FLAGS AUTO DIFF
[2016-12-06 13:19] LABS: APTT (PATIENT) 32.7 SEC (24.3-30.1); INTERNATIONAL NORMALIZED RATIO 1.2 RATIO; PROTHROMBIN TIME - PATIENT 12.9 SEC (9.8-11.6)
[2016-12-06 13:55] LABS: BANDS 9 % (0-6); BASOPHILS 2 % (0-2); EOSINOPHILS 2 % (0-4); METAMYELOCYTES 1 % (0-1); NEUTROPHIL # MANUAL DIFF 4.9 TH/MM3 (1.8-7.7); POLYS (SEG NEUTROPHILS) 56 % (16-70); WBC DIFF SAMPLE 100
[2016-12-06 13:59] LABS: PLATELET ESTIMATE SMEAR LOW (NORMAL); PLATELET MORPHOLOGY ENLARGED (NORMAL); SCAN/DIFF FINAL DIFF MANUAL; TOXIC GRANULATION 1+ (NORMAL)
[2016-12-06] MEDS ORDERED: PIPERACIL-TAZO 3.375 GM PREMIX 50 ML IV ONE (14:30)
--- NOTE | 2016-12-06 14:37 | HHI.HP ---
HPI Service [facility] Primary Care Physician Monie Granados MD Admission Diagnosis R mandibular abcess and osteomyelitis Diagnoses: Chief Complaint: Right Jaw Swelling Travel History International Travel<30 Days: No Contact w/Intl Traveler <30 Da: No Traveled to Known Affected Are: No History of Present Illness This is a pleasant 46 y/o Male with complaint of right sided jaw swelling, He has had it for 8 months. Patient had jaw reconstructive surgery June 2015. Was hospitalized June 2016 for an infection in that area but he left AMA. He is a homeless alcoholic who has not followed up with anybody since. Now his right side of his face is swollen up like a baseball. Symptoms moderately severe. Symptoms are exacerbated by his noncompliance. No alleviating factors. He was drinking alcohol earlier today. Seen in Emergency room after discuss with ER specialist the patient is very non compliant with his medical management,has multiple lesions on bilateral legs with loss of continuity of the skin. Review of Systems Constitutional: DENIES: Fever, Chills, Change in appetite Endocrine: DENIES: Heat/cold intolerance Eyes: DENIES: Blurred vision, Eye pain Except as stated in HPI: all other systems reviewed are Neg Past Family Social History Past Medical History Asthma CAD Hypertension COPD Chronic back pain [place] Past Surgical History Reconstructive surgery of the Jaw area Reported Medications Last Impressions Maxillofacial CT 12/06/16 0000 Signed Impressions: Service Date/Time: Tuesday, December 06, 2016 12:23 - CONCLUSION: 1. There has been prior plating of a mandibular fracture. There is a large area of abnormal soft tissue and a septated fluid collection involving the right process equipment operator space with extension into the masseter muscle on the right and up into the right parotid gland. There is rarefaction of bone around the patient's plate. Findings would be consistent with osteomyelitis and abscess. Findings are discussed in detail above. Sage Navas MD Chest X-Ray 12/06/16 0000 Signed Impressions: Service Date/Time: Tuesday, December 06, 2016 12:08 - CONCLUSION: 1. There is a new area of atelectasis or infiltrate at the left lung base. Pneumonia is not excluded. 2. COPD changes. Sage Navas MD Allergies: Coded Allergies: *MDRO Multi-Drug Resistant Organism (Verified Adverse Reaction, Unknown, 12/06/16) MRSA (thigh wound) 2003 MRSA PCR (nares) positive - 07/08/15 Active Ordered Medications Current Medications Medications (Trade) Dose Ordered Sig/Sobeida Route Start Time Stop Time Status Last Admin Sodium Chloride 1,000 ml @ 100 mls/hr Q10H IV 12/06/16 15:00 12/06/16 15:05 (NS Flush) 2 ml UNSCH PRN IV FLUSH 12/06/16 14:45 (NS Flush) 2 ml BID IV FLUSH 12/06/16 21:00 (Tylenol) 650 mg Q4H PRN PO 12/06/16 14:45 (Zofran Inj) 4 mg Q6H PRN IVP 12/06/16 14:45 (Narcan Inj) 0.4 mg UNSCH PRN IV PUSH 12/06/16 14:45 (Kelle-Colace) 1 tab BID PO 12/06/16 21:00 (Milk Of Magnesia Liq) 30 ml Q12H PRN PO 12/06/16 14:45 (Senokot) 17.2 mg Q12H PRN PO 12/06/16 14:45 (Dulcolax Supp) 10 mg DAILY PRN RECTAL 12/06/16 14:45 (Lactulose Liq) 30 ml DAILY PRN PO 12/06/16 14:45 Ampicillin Sodium/ Sulbactam Sodium 3 gm/Sodium Chloride 100 ml @ 200 mls/hr Q6H IV 12/06/16 18:00 Family History Denies. Social History Alcohol abuse daily Beer Tobacco dependence on pack daily denies other toxic habits. Physical Exam Vital Signs Vital Signs Date Time Temp Pulse Resp B/P (MAP) Pulse Ox O2 Delivery O2 Flow Rate FiO2 12/06/16 11:33 98.6 91 18 97/62 (74) 95 Physical Exam GENERAL: Thin cachectic disheveled patient in no apparent distress. SKIN: Focused skin assessment reveals no rash and nodules. Skin is Warm and dry. HEAD: Atraumatic. Normocephalic. EYES: Pupils equal and round. No scleral icterus. No injection or drainage. ENT: No nasal bleeding or discharge. Mucous membranes pink and moist. Has extensive swelling to the right mandible area. There is some tenderness there there is no fluctuance or drainage. Oral cavity examination reveals that his hardware is visible all along the inner gumline on the right side. NECK: Trachea midline. No JVD. CARDIOVASCULAR: Regular rate and rhythm. No murmur appreciated. RESPIRATORY: No accessory muscle use. Occasional expiratory wheeze. Breath sounds equal bilaterally. GASTROINTESTINAL: Abdomen soft, non-tender, nondistended. Hepatic and splenic margins not palpable. MUSCULOSKELETAL: No obvious deformities. No clubbing. No cyanosis. Symmetric edema of the lower legs NEUROLOGICAL: Awake and alert. No obvious cranial nerve deficits. Motor grossly within normal limits. Normal speech. PSYCHIATRIC: Appropriate mood and affect; insight and judgment normal. Laboratory Laboratory Tests Test 12/06/16 11:40 White Blood Count 7.4 Red Blood Count 3.38 Hemoglobin 10.5 Hematocrit 31.3 Mean Corpuscular Volume 92.4 Mean Corpuscular Hemoglobin 31.1 Mean Corpuscular Hemoglobin Concent 33.7 Red Cell Distribution Width 13.5 Platelet Count 88 Mean Platelet Volume 9.7 Neutrophils (%) (Auto) 70.8 Lymphocytes (%) (Auto) 18.1 Monocytes (%) (Auto) 6.6 Eosinophils (%) (Auto) 1.6 Basophils (%) (Auto) 2.9 Neutrophils # (Auto) 5.2 Lymphocytes # (Auto) 1.3 Monocytes # (Auto) 0.5 Eosinophils # (Auto) 0.1 Basophils # (Auto) 0.2 CBC Comment AUTO DIFF Differential Total Cells Counted 100 Neutrophils % (Manual) 56 Band Neutrophils % 9 Lymphocytes % 25 Monocytes % 5 Eosinophils % 2 Basophils % 2 Neutrophils # (Manual) 4.9 Metamyelocytes 1 Differential Comment FINAL DIFF MANUAL Toxic Granulation 1+ Platelet Estimate LOW Platelet Morphology Comment ENLARGED Prothrombin Time 12.9 Prothromb Time International Ratio 1.2 Activated Partial Thromboplast Time 32.7 Blood Urea Nitrogen 5 Creatinine 0.46 Random Glucose 75 Calcium Level 7.7 Sodium Level 135 Potassium Level 4.0 Chloride Level 104 Carbon Dioxide Level 20.0 Anion Gap 11 Estimat Glomerular Filtration Rate 195 Ethyl Alcohol Level 283 Result Diagram: 12/06/16 1140 12/06/16 1140 Imaging Last Impressions Maxillofacial CT 12/06/16 0000 Signed Impressions: Service Date/Time: Tuesday, December 06, 2016 12:23 - CONCLUSION: 1. There has been prior plating of a mandibular fracture. There is a large area of abnormal soft tissue and a septated fluid collection involving the right process equipment operator space with extension into the masseter muscle on the right and up into the right parotid gland. There is rarefaction of bone around the patient's plate. Findings would be consistent with osteomyelitis and abscess. Findings are discussed in detail above. Sage Navas MD Chest X-Ray 12/06/16 0000 Signed Impressions: Service Date/Time: Tuesday, December 06, 2016 12:08 - CONCLUSION: 1. There is a new area of atelectasis or infiltrate at the left lung base. Pneumonia is not excluded. 2. COPD changes. Sage Navas MD Caprini VTE Risk Assessment Caprini VTE Risk Assessment: No/Low Risk (score <= 1) Caprini Risk Assessment Model Point Value = 1 Point Value = 2 Point Value = 3 Point Value = 5 Age 41-60 Minor surgery BMI > 25 kg/m2 Swollen legs Varicose veins or History of unexplained or recurrent spontaneous Oral contraceptives or hormone replacement Sepsis (< 1 month) Serious lung disease, including pneumonia (< 1 month) Abnormal pulmonary function Acute myocardial infarction Congestive heart failure (< 1 month) History of inflammatory bowel disease Medical patient at bed rest Age 61-74 Arthroscopic surgery Major open surgery (> 45 min) Laparoscopic surgery (> 45 min) Malignancy Confined to bed (> 72 hours) Immobilizing plaster cast Central venous access Age >= 75 History of VTE Family history of VTE Factor V Leiden Prothrombin [id number] Lupus anticoagulant Anticardiolipin antibodies Elevated serum homocysteine Heparin-induced thrombocytopenia Other congenital or acquired thrombophilia Stroke (< 1 month) Elective arthroplasty Hip, pelvis, or leg fracture Acute spinal cord injury (< 1 month) Prophylaxis Regimen Total Risk Factor Score Risk Level Prophylaxis Regimen 0-1 Low Early ambulation 2 Moderate Order ONE of the following: *Sequential Compression Device (SCD) *Heparin 5000 units SQ BID 3-4 Higher Order ONE of the following medications: *Heparin 5000 units SQ TID *Enoxaparin/Lovenox 40 mg SQ daily (WT < 150 kg, CrCl > 30 mL/min) *Enoxaparin/Lovenox 30 mg SQ daily (WT < 150 kg, CrCl > 10-29 mL/min) *Enoxaparin/Lovenox 30 mg SQ BID (WT < 150 kg, CrCl > 30 mL/min) AND/OR *Sequential Compression Device (SCD) 5 or more Highest Order ONE of the following medications: *Heparin 5000 units SQ TID (Preferred with Epidurals) *Enoxaparin/Lovenox 40 mg SQ daily (WT < 150 kg, CrCl > 30 mL/min) *Enoxaparin/Lovenox 30 mg SQ daily (WT < 150 kg, CrCl > 10-29 mL/min) *Enoxaparin/Lovenox 30 mg SQ BID (WT < 150 kg, CrCl > 30 mL/min) AND *Sequential Compression Device (SCD) Assessment and Plan Assessment and Plan 1. Osteomyelitis and Abscess of the Right Mandibular area, status post CT scan of Facial Bones with Contrast with Diagnosis There has been prior plating of a mandibular fracture. There is a large area of abnormal soft tissue and a septated fluid collection involving the right process equipment operator space with extension into the masseter muscle on the right and up into the right parotid gland. There is rarefaction of bone around the patient's plate. Findings would be consistent with osteomyelitis and abscess. Findings are discussed in detail above. Initially given Zosyn in ER, as per patient states he has this edema for the last 8 months, he left AMA in June and did not wanted to pursue treatment, status post IV fluids, found Thrombocytopenia probable secondary to alcohol abuse and probable Liver pathology, Patient discussed by ER physician with Maxillofacial virtual reality specialist Doctor Jake and recommended for admission, he will come to see the patient, continue with SCDs and left NPO for probable procedure. 2. Alcohol intoxication in active alcoholic patient, strongly recommended to stop drinking alcohol, CIWA protocol 3. Tobacco dependence strongly recommended to stop smoking 4. COPD stable on Bronchodilator, Mucolytic and Incentive spirometry 5. Thrombocytopenia/Anemia 6. LFTs elevated in the past asked for hepatitis profile 7. Polysubstance abuse in the past drug screen now 8. Lower extremity lesions wound care to follow. DVT prophylaxis with SCDs Awaiting recommendations by maxillofacial virtual reality specialist Consult manager instrumentation blood cultures Code Status Full Code. Discussed Condition With Leodan Vazquez MD Physician Certification 2 Midnight Certification Type: Admission for Inpatient Services Order for Inpatient Services The services are ordered in accordance with Medicare regulations or non- Medicare payer requirements, as applicable. In the case of services not specified as inpatient-only, they are appropriately provided as inpatient services in accordance with the 2-midnight benchmark. Estimated LOS (days): 3 days is the estimated time the patient will need to remain in the hospital, assuming treatment plan goals are met and no additional complications. Post-Hospital Plan: Not yet determined Jose Clayton MD Dec 06, 2016 2:37 pm
[2016-12-06] MEDS ORDERED: SENNOSIDES 8.6 MG TAB PO PRN (14:45)
[2016-12-06] MEDS ORDERED: SODIUM CHLORIDE 0.9% FLUSH 10 ML FLUSH IV FLUSH PRN (14:45)
[2016-12-06] MEDS ORDERED: LACTULOSE SYRUP 20 GM/30 ML CUP PO PRN (14:45)
[2016-12-06] MEDS ORDERED: ONDANSETRON HCL 4 MG/2 ML VIAL IVP PRN (14:45)
[2016-12-06] MEDS ORDERED: HEPARIN SODIUM - SQ 10,000 UNITS/ML VIAL SQ SCH (14:45)
[2016-12-06] MEDS ORDERED: BISACODYL 10 MG SUPP RECTAL PRN (14:45)
[2016-12-06] MEDS ORDERED: NALOXONE HCL 0.4 MG/ML AMP IV PUSH PRN (14:45)
[2016-12-06] MEDS ORDERED: ACETAMINOPHEN 325 MG TAB PO PRN (14:45)
[2016-12-06] MEDS ORDERED: MAGNESIUM HYDROXIDE SUSP 30 ML CUP PO PRN (14:45)
[2016-12-06] MEDS: SODIUM CHLOR 0.9% 1000 ML INJ 1,000 ML IV SCH (15:05)
[2016-12-06] MEDS ORDERED: LORazepam 2 MG/ML VIAL IV PUSH PRN (15:30)
[2016-12-06] MEDS ORDERED: FLUMAZENIL 0.5 MG/5 ML VIAL IV PUSH PRN (15:30)
[2016-12-06] MEDS ORDERED: LORazepam 2 MG TAB PO PRN (15:30)
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
[2016-12-06] MEDS: RESP: ALBUTEROL 2.5 MG/IPRATROPIUM 0.5 MG NEB (SCH) NEB ×2 (16:43→20:12)
[2016-12-06] MEDS: LORazepam 2 MG/ML VIAL IV PUSH PRN (17:32)
[2016-12-06] MEDS: AMPICILLIN-SULBACTAM INJ 3 GM in SODIUM CHLORIDE 0.9% INJ 100 ML IV SCH ×2 (17:32→23:14)
[2016-12-06 19:18] LABS: INDIRECT BILIRUBIN 0.1 MG/DL (0.0-0.8); TOTAL BILIRUBIN ADULT 0.4 MG/DL (0.2-1.0)
[2016-12-06] MEDS: MULTIVITAMIN INJ 10 ML, FOLIC ACID INJ 1 MG in SODIUM CHLORID 0.9% 500 ML INJ 500 ML IV SCH (19:37)
[2016-12-06] MEDS: THIAMINE INJ 100 MG in SODIUM CHLORIDE 0.9% INJ 100 ML IV SCH (19:37)
[2016-12-06] MEDS: DOCUSATE SODIUM 50 MG/SENNA 8.6 MG TAB PO SCH (19:39)
[2016-12-06] MEDS: SODIUM CHLORIDE 0.9% FLUSH 10 ML FLUSH IV FLUSH SCH (19:39)
[2016-12-06] MEDS: guaiFENesin E.R. 600 MG TAB PO SCH (19:39)
[2016-12-06] MEDS: MORPHINE SULFATE 4 MG/ML INJ IV PUSH PRN ×2 (19:47→23:11)
[2016-12-06] MEDS: LORazepam 1 MG TAB PO PRN (22:00)
[2016-12-07] MEDS: SODIUM CHLOR 0.9% 1000 ML INJ 1,000 ML IV SCH ×2 (01:00→11:00)
[2016-12-07] MEDS: RESP: ALBUTEROL 2.5 MG/IPRATROPIUM 0.5 MG NEB (SCH) NEB ×7 (01:05→23:20)
[2016-12-07] MEDS: LORazepam 2 MG/ML VIAL IV PUSH PRN ×5 (01:51→19:30)
[2016-12-07 03:30] VITALS: BP 102/71; PULSE 89; RESP 18; TEMP 98; O2SAT 95
[2016-12-07] MEDS: AMPICILLIN-SULBACTAM INJ 3 GM in SODIUM CHLORIDE 0.9% INJ 100 ML IV SCH ×4 (05:29→23:21)
[2016-12-07 08:00] VITALS: BP 117/82; PULSE 92; RESP 20; TEMP 98.6; O2SAT 98
--- NOTE | 2016-12-07 08:10 | HHI.PR ---
Subjective Remarks This is a pleasant 46 y/o Male with complaint of right sided jaw swelling, He has had it for 8 months. Patient had jaw reconstructive surgery June 2015. Was hospitalized June 2016 for an infection in that area but he left AMA. He is a homeless alcoholic who has not followed up with anybody since. Now his right side of his face is swollen up like a baseball. Symptoms moderately severe. Symptoms are exacerbated by his noncompliance. No alleviating factors. He was drinking alcohol earlier today. 12/07: Seen by Maxillofacial digital asset specialist, he has Right mandible abscess and Osteomyelitis, failure of hardware right angle of the mandible recommended for Surgery today, by Doctor Adan Joseph. Objective Vital Signs Date Time Temp Pulse Resp B/P (MAP) Pulse Ox O2 Delivery O2 Flow Rate FiO2 12/07/16 03:30 98.0 89 18 102/71 (81) 95 12/06/16 23:00 100.7 111 18 129/86 (100) 96 12/06/16 20:17 92 Nasal Cannula 3.00 12/06/16 20:10 95 12/06/16 19:05 99.3 94 18 124/88 (100) 95 12/06/16 18:00 99 Nasal Cannula 2.00 12/06/16 17:27 89 20 116/68 (84) 99 Room Air 12/06/16 17:20 98.2 96 18 117/79 (92) 100 12/06/16 16:46 91 21 12/06/16 11:33 98.6 91 18 97/62 (74) 95 I/O 12/06/16 12/06/16 12/06/16 12/07/16 12/07/16 12/07/16 07:00 15:00 23:00 07:00 15:00 23:00 Intake Total 440 ml 610 ml Output Total 725 ml 650 ml Balance -285 ml -40 ml Intake Oral 240 ml 0 ml IV Total 200 ml 610 ml Output Urine Total 725 ml 650 ml # Voids 3 # Bowel Movements 0 0 Result Diagram: 12/06/16 1140 12/06/16 1140 Imaging Last Impressions Maxillofacial CT 12/06/16 0000 Signed Impressions: Service Date/Time: Tuesday, December 06, 2016 12:23 - CONCLUSION: 1. There has been prior plating of a mandibular fracture. There is a large area of abnormal soft tissue and a septated fluid collection involving the right hay sorter space with extension into the masseter muscle on the right and up into the right parotid gland. There is rarefaction of bone around the patient's plate. Findings would be consistent with osteomyelitis and abscess. Findings are discussed in detail above. Sage Navas MD Chest X-Ray 12/06/16 0000 Signed Impressions: Service Date/Time: Tuesday, December 06, 2016 12:08 - CONCLUSION: 1. There is a new area of atelectasis or infiltrate at the left lung base. Pneumonia is not excluded. 2. COPD changes. Sage Navas MD Procedures None Other Results Laboratory Tests Test 12/06/16 11:40 12/06/16 18:21 White Blood Count 7.4 TH/MM3 Red Blood Count 3.38 MIL/MM3 Hemoglobin 10.5 GM/DL Hematocrit 31.3 % Mean Corpuscular Volume 92.4 FL Mean Corpuscular Hemoglobin 31.1 PG Mean Corpuscular Hemoglobin Concent 33.7 % Red Cell Distribution Width 13.5 % Platelet Count 88 TH/MM3 Mean Platelet Volume 9.7 FL Neutrophils (%) (Auto) 70.8 % Lymphocytes (%) (Auto) 18.1 % Monocytes (%) (Auto) 6.6 % Eosinophils (%) (Auto) 1.6 % Basophils (%) (Auto) 2.9 % Neutrophils # (Auto) 5.2 TH/MM3 Lymphocytes # (Auto) 1.3 TH/MM3 Monocytes # (Auto) 0.5 TH/MM3 Eosinophils # (Auto) 0.1 TH/MM3 Basophils # (Auto) 0.2 TH/MM3 CBC Comment AUTO DIFF Differential Total Cells Counted 100 Neutrophils % (Manual) 56 % Band Neutrophils % 9 % Lymphocytes % 25 % Monocytes % 5 % Eosinophils % 2 % Basophils % 2 % Neutrophils # (Manual) 4.9 TH/MM3 Metamyelocytes 1 % Differential Comment FINAL DIFF MANUAL Toxic Granulation 1+ Platelet Estimate LOW Platelet Morphology Comment ENLARGED Prothrombin Time 12.9 SEC Prothromb Time International Ratio 1.2 RATIO Activated Partial Thromboplast Time 32.7 SEC Blood Urea Nitrogen 5 MG/DL Creatinine 0.46 MG/DL Random Glucose 75 MG/DL Calcium Level 7.7 MG/DL Sodium Level 135 MEQ/L Potassium Level 4.0 MEQ/L Chloride Level 104 MEQ/L Carbon Dioxide Level 20.0 MEQ/L Anion Gap 11 MEQ/L Estimat Glomerular Filtration Rate 195 ML/MIN Ethyl Alcohol Level 283 MG/DL Total Bilirubin 0.4 MG/DL Direct Bilirubin 0.3 MG/DL Indirect Bilirubin 0.1 MG/DL Aspartate Amino Transf (AST/SGOT) 243 U/L Alanine Aminotransferase (ALT/SGPT) 86 U/L Alkaline Phosphatase 85 U/L Total Protein 8.1 GM/DL Albumin 2.4 GM/DL Objective Remarks GENERAL: Thin cachectic disheveled patient in no apparent distress. SKIN: Focused skin assessment reveals no rash and nodules. Skin is Warm and dry. HEAD: Atraumatic. Normocephalic. EYES: Pupils equal and round. No scleral icterus. No injection or drainage. ENT: No nasal bleeding or discharge. Mucous membranes pink and moist. Has extensive swelling to the right mandible area. There is some tenderness there there is no fluctuance or drainage. Oral cavity examination reveals that his hardware is visible all along the inner gumline on the right side. NECK: Trachea midline. No JVD. CARDIOVASCULAR: Regular rate and rhythm. No murmur appreciated. RESPIRATORY: No accessory muscle use. Occasional expiratory wheeze. Breath sounds equal bilaterally. GASTROINTESTINAL: Abdomen soft, non-tender, nondistended. Hepatic and splenic margins not palpable. MUSCULOSKELETAL: No obvious deformities. No clubbing. No cyanosis. Symmetric edema of the lower legs NEUROLOGICAL: Awake and alert. No obvious cranial nerve deficits. Motor grossly within normal limits. Normal speech. PSYCHIATRIC: Appropriate mood and affect; insight and judgment normal. Medications and IVs Current Medications Medications (Trade) Dose Ordered Sig/Sobeida Route Start Time Stop Time Status Last Admin Sodium Chloride 1,000 ml @ 100 mls/hr Q10H IV 12/06/16 15:00 12/06/16 15:05 (NS Flush) 2 ml UNSCH PRN IV FLUSH 12/06/16 14:45 (NS Flush) 2 ml BID IV FLUSH 12/06/16 21:00 12/06/16 19:39 (Tylenol) 650 mg Q4H PRN PO 12/06/16 14:45 12/06/16 23:20 (Zofran Inj) 4 mg Q6H PRN IVP 12/06/16 14:45 (Narcan Inj) 0.4 mg UNSCH PRN IV PUSH 12/06/16 14:45 (Kelle-Colace) 1 tab BID PO 12/06/16 21:00 12/06/16 19:39 (Milk Of Magnesia Liq) 30 ml Q12H PRN PO 12/06/16 14:45 (Senokot) 17.2 mg Q12H PRN PO 12/06/16 14:45 (Dulcolax Supp) 10 mg DAILY PRN RECTAL 12/06/16 14:45 (Lactulose Liq) 30 ml DAILY PRN PO 12/06/16 14:45 Ampicillin Sodium/ Sulbactam Sodium 3 gm/Sodium Chloride 100 ml @ 200 mls/hr Q6H IV 12/06/16 18:00 12/07/16 05:29 (Duoneb Neb) 1 ampule Q4HR NEB NEB 12/06/16 16:00 12/07/16 03:34 (Mucinex Er) 600 mg BID PO 12/06/16 21:00 12/06/16 19:39 Multivitamins 10 ml/Folic Acid 1 mg/Sodium Chloride 510.2 ml @ 125 mls/hr Q24H IV 12/06/16 17:00 12/11/16 16:59 12/06/16 19:37 Thiamine HCl 100 mg/Sodium Chloride 101 ml @ 100 mls/hr Q24H IV 12/06/16 16:00 12/08/16 17:01 12/06/16 19:37 (Vitamin B1) 100 mg DAILY PO 12/09/16 09:00 (Romazicon Inj) 0.2 mg Q1M PRN IV PUSH 12/06/16 15:30 (Ativan) 1 mg Q4H PRN PO 12/06/16 15:30 12/06/16 22:00 (Ativan Inj) 1 mg Q4H PRN IV PUSH 12/06/16 15:30 (Ativan) 2 mg Q2H PRN PO 12/06/16 15:30 12/06/16 19:47 (Ativan Inj) 2 mg Q2H PRN IV PUSH 12/06/16 15:30 12/07/16 05:30 (Ativan Inj) 2 mg Q1H PRN IV PUSH 12/06/16 15:30 (Ativan Inj) 2 mg Q15M PRN IV PUSH 12/06/16 15:30 (Morphine Inj) 2 mg Q3H PRN IV PUSH 12/06/16 19:30 12/06/16 23:11 A/P Assessment and Plan 1. Osteomyelitis and Abscess of the Right Mandibular area, status post CT scan of Facial Bones with Contrast with Diagnosis There has been prior plating of a mandibular fracture. There is a large area of abnormal soft tissue and a septated fluid collection involving the right hay sorter space with extension into the masseter muscle on the right and up into the right parotid gland. There is rarefaction of bone around the patient's plate. Findings would be consistent with osteomyelitis and abscess. Findings are discussed in detail above. Initially given Zosyn in ER, as per patient states he has this edema for the last 8 months, he left AMA in June and did not wanted to pursue treatment, status post IV fluids, found Thrombocytopenia probable secondary to alcohol abuse and probable Liver pathology, Patient discussed by ER physician with Maxillofacial clinical quality assurance specialist Doctor Jake and recommended for admission, he will come to see the patient, continue with SCDs and left NPO for probable procedure. 2. Alcohol intoxication in active alcoholic patient, strongly recommended to stop drinking alcohol, CIWA protocol 3. Tobacco dependence strongly recommended to stop smoking 4. COPD stable on Bronchodilator, Mucolytic and Incentive spirometry 5. Thrombocytopenia/Anemia 6. LFTs elevated in the past asked for hepatitis profile 7. Polysubstance abuse in the past drug screen now 8. Lower extremity lesions wound care to follow. DVT prophylaxis with SCDs Awaiting recommendations by maxillofacial clinical quality assurance specialist Consult environmental manager blood cultures Code Status Full Code. Discussed Condition With Patient and nurse in the room. Discharge Planning Once cleared by specialists. Jose Clayton MD Dec 07, 2016 08:10
[2016-12-07] MEDS: guaiFENesin E.R. 600 MG TAB PO SCH ×2 (08:31→21:00)
[2016-12-07] MEDS: DOCUSATE SODIUM 50 MG/SENNA 8.6 MG TAB PO SCH ×2 (08:31→21:00)
[2016-12-07] MEDS: SODIUM CHLORIDE 0.9% FLUSH 10 ML FLUSH IV FLUSH SCH ×2 (08:32→20:42)
[2016-12-07] MEDS: MORPHINE SULFATE 4 MG/ML INJ IV PUSH PRN ×2 (08:36→22:54)
[2016-12-07 12:00] VITALS: BP 106/75; PULSE 93; RESP 20; TEMP 98.2; O2SAT 93
[2016-12-07] MEDS ORDERED: ESMOLOL HCL 100 MG/10 ML VIAL IV ONE (12:00)
[2016-12-07] MEDS ORDERED: GLYCOPYRROLATE 1 MG/5 ML SYRINGE IV PUSH ONE (12:00)
[2016-12-07] MEDS ORDERED: LIDOCAINE HCL 1% PF 5 ML AMPULE OTHER ONE (12:00)
[2016-12-07] MEDS ORDERED: PHENYLEPHRINE HCL 10 MG/ML VIAL IV ONE (12:00)
[2016-12-07] MEDS ORDERED: DEXAMETHASONE SOD PHOS 4 MG/ML VIAL IV ONE (12:00)
[2016-12-07] MEDS ORDERED: ONDANSETRON HCL 4 MG/2 ML VIAL IV PUSH ONE (12:00)
[2016-12-07] MEDS ORDERED: PHENYLEPH/NS 1000 MCG/10 ML SYR IV ONE (12:00)
[2016-12-07] MEDS ORDERED: ceFAZolin INJ 1,000 MG VIAL IV ONE (12:00)
[2016-12-07] MEDS ORDERED: PROPOFOL 200 MG/20 ML AMP IV ONE (12:00)
[2016-12-07] MEDS ORDERED: ROCURONIUM INJ 50 MG/5 ML SYRINGE IV PUSH ONE (12:00)
[2016-12-07] MEDS ORDERED: NEOSTIGMINE 3 MG/3 ML SYR IV ONE (12:00)
[2016-12-07 12:28] LABS: AUTOMATED NEUTROPHIL # 5.3 TH/MM3 (1.8-7.7); BASOPHIL # 0.1 TH/MM3 (0-0.2); BASOPHIL % 1.8 % (0.0-2.0); EOSINOPHIL # 0.1 TH/MM3 (0-0.4); EOSINOPHIL % 1.1 % (0.0-4.0); HEMATOCRIT 33.7 % (39.0-51.0); LYMPHOCYTE # 1.3 TH/MM3 (1.0-4.8); MEAN CELL VOLUME 92.5 FL (80.0-100.0); MEAN CORPUSCULAR HEMOGLOBIN 31.4 PG (27.0-34.0); MONO % 7.9 % (0.0-8.0); NEUT % 72.2 % (16.0-70.0); PLATELET COUNT 63 TH/MM3 (150-450); RED BLOOD COUNT 3.64 MIL/MM3 (4.50-5.90); RED CELL DISTRIBUTION WIDTH 13.5 % (11.6-17.2); WHITE BLOOD COUNT 7.4 TH/MM3 (4.0-11.0)
[2016-12-07 12:39] LABS: HEMO FLAGS AUTO DIFF
[2016-12-07 12:40] LABS: BICARBONATE 25.4 MEQ/L (21.0-32.0); POTASSIUM 3.6 MEQ/L (3.5-5.1)
[2016-12-07 13:50] LABS: PLATELET ESTIMATE SMEAR LOW (NORMAL); PLATELET MORPHOLOGY NORMAL (NORMAL); SCAN/DIFF AUTO DIFF CONFIRMED
--- NOTE | 2016-12-07 14:05 | RADRPT ---
EXAM DATE/TIME: 12/07/2016 12:23 [facility] COMPARISON: CT FACIAL BONES W CONTRAST, December 06, 2016, 12:23. CT 3D/SPECIAL RECONSTRUCTION, September 10, 2015, 21 :13. INDICATIONS : Pain previous facial surgery,pain,pre opperative CTDIvol (mGy) ; Reconstructed from previous dataset, no dose MEDICAL HISTORY : Cardiovascular disease. SURGICAL HISTORY : Facial surgery for fracture ENCOUNTER: Initial ACUITY: 7 - 11 months PAIN SCALE: 5/10 LOCATION: facial TECHNIQUE: 3D reconstructions of the face were performed. DICOM format image data is available electronically f or review and comparison. FINDINGS: 3-D reconstructions are obtained of the face were obtained for preoperative planning. CONCLUSION: 3-D reconstructions reveal anatomic alignment extensive plate and screws.. Cristofer Navas MD FACR on December 07, 2016 at 14:02 Board Certified Radiologist. This report was verified electronically.
[2016-12-07] MEDS ORDERED: OXYMETAZOLINE HCL 0.05% 15 ML NASAL SPRAY ONE (15:12)
[2016-12-07] MEDS ORDERED: ACETAMINOPHEN 1000 MG/100 ML 100 ML IV ONE (15:12)
[2016-12-07] MEDS ORDERED: LIDOCAINE 2%/EPINEPHrine PF 1:200,000 20ML SDV ONE (15:29)
[2016-12-07] MEDS ORDERED: CHLORHEXIDINE GLUCONATE 0.12% 15 ML CUP ONE (15:30)
[2016-12-07 16:00] VITALS: BP 122/58; PULSE 98; RESP 20; TEMP 97.5; O2SAT 98
--- NOTE | 2016-12-07 16:25 | HHI.PR ---
Addendum to Inpatient Note Additional Information pt seen around 1515 full note to follow dw RN 46 yo male with ETOH abuse active ETOH w/d CT c mandibular osteo Pt is on the way to OR large mass R cheek x 8 mos failed o/p abx On exam: tremulous Not very tender mass about a size of a fist cont Amina Noble MD Dec 07, 2016 16:25
--- NOTE | 2016-12-07 16:27 | PD.ID.CON ---
History of Present Illness Service ID Consult Requested By Dr Joseph Reason for Consult mandibular osteo Primary Care Physician Monie Granados MD Diagnoses: History of Present Illness chart reviewed pt is a poor historian, shaking, confused having active ETOH withdrawl Pt is a 46 yo male with ETOH abuse presented with large mass R cheek x 8 mos Over 1 year ago he underwent ORIF bilateral mandible fractures ORIF right mandible and mandibular symphysis fracture with extraction of tooth number 31 on 07/07/[address] Joseph Last August he was diagnosed with R mandibular osteomyelitis R, and underwent hardware removal, and debridement, followed by IV then PO abx He failed o/p abx but endorses non compliance CT again showed mandibular osteo Pt is on the way to OR He is on [place] Review of Systems ROS Limitations: Poor Historian Past Family Social History Allergies: Coded Allergies: *MDRO Multi-Drug Resistant Organism (Verified Adverse Reaction, Unknown, 12/06/16) MRSA (thigh wound) 2004 MRSA PCR (nares) positive - 07/08/15 Past Medical History Hypertension, COPD, pneumonia, chronic back pain, asthma Past Surgical History ORIF of bilateral mandibles. Active Ordered Medications Medications where reviewed in EMR Antibiotics Include: unasyn Family History Motherdiabetes DadCOPD and asthma. Social History Patient reports smoking 1 pack a day. Drinks about 4 packs a day. noIVDU Physical Exam Vital Signs Vital Signs Date Time Temp Pulse Resp B/P (MAP) Pulse Ox O2 Delivery O2 Flow Rate FiO2 12/07/16 12:00 98.2 93 20 106/75 (85) 93 12/07/16 08:00 98.6 92 20 117/82 (94) 98 12/07/16 03:30 98.0 89 18 102/71 (81) 95 12/06/16 23:00 100.7 111 18 129/86 (100) 96 12/06/16 20:17 92 Nasal Cannula 3.00 12/06/16 20:10 95 12/06/16 19:05 99.3 94 18 124/88 (100) 95 12/06/16 18:00 99 Nasal Cannula 2.00 12/06/16 17:27 89 20 116/68 (84) 99 Room Air 12/06/16 17:20 98.2 96 18 117/79 (92) 100 12/06/16 16:46 91 21 Physical Exam CONSTITUTIONAL/GENERAL: This is a thin patient, in no apparent distress. TUBES/LINES/DRAINS: SKIN: No jaundice, rashes, or lesions. Ecchymoses on upper extremities. No wounds seen anteriorly. Skin temperature appropriate. Not diaphoretic. HEAD: Atraumatic. Normocephalic. Large mass R cheek no fluctuance mildly tender no drainage EYES: Pupils equal and round and reactive. Extraocular motions intact. No scleral icterus. No injection or drainage. Fundi not examined. ENT: Hearing grossly normal. Nose without bleeding or purulent drainage. Throat without visible erythema, exudates, masses, or lesions. Very poor dentition NECK: Trachea midline. Supple, nontender. No palpable thyroid enlargement or nodularity. CARDIOVASCULAR: Regular rate and rhythm without murmurs, gallops, or rubs. No JVD. Peripheral pulses symmetric. RESPIRATORY/CHEST: Symmetric, unlabored respirations. Clear to auscultation. Breath sounds equal bilaterally. No wheezes, rales, or rhonchi. GASTROINTESTINAL: Abdomen soft, non-tender, nondistended. No hepato-splenomegaly , or palpable masses. No guarding. Bowel sounds present. GENITOURINARY: Without palpable bladder distension. MUSCULOSKELETAL: Extremities without clubbing, cyanosis, or edema. No joint tenderness or effusion noted. No calf tenderness. No mottling or clubbing. LYMPHATICS: No palpable cervical or supraclavicular adenopathy. NEUROLOGICAL: Awake and alert. Motor and sensory grossly within normal limits. Follows commands. Moves all extremities. PSYCHIATRIC: + anxiety confused + tremors Laboratory Laboratory Tests Test 12/06/16 18:21 12/07/16 11:34 Total Bilirubin 0.4 Direct Bilirubin 0.3 Indirect Bilirubin 0.1 Aspartate Amino Transf (AST/SGOT) 243 Alanine Aminotransferase (ALT/SGPT) 86 Alkaline Phosphatase 85 Total Protein 8.1 Albumin 2.4 Hepatitis A IgM Antibody NEGATIVE Hepatitis B Surface Antigen NEGATIVE Hepatitis B Core IgM Antibody NEGATIVE Hepatitis C Antibody REACTIVE White Blood Count 7.4 Red Blood Count 3.64 Hemoglobin 11.5 Hematocrit 33.7 Mean Corpuscular Volume 92.5 Mean Corpuscular Hemoglobin 31.4 Mean Corpuscular Hemoglobin Concent 34.0 Red Cell Distribution Width 13.5 Platelet Count 63 Mean Platelet Volume 10.1 Neutrophils (%) (Auto) 72.2 Lymphocytes (%) (Auto) 17.0 Monocytes (%) (Auto) 7.9 Eosinophils (%) (Auto) 1.1 Basophils (%) (Auto) 1.8 Neutrophils # (Auto) 5.3 Lymphocytes # (Auto) 1.3 Monocytes # (Auto) 0.6 Eosinophils # (Auto) 0.1 Basophils # (Auto) 0.1 CBC Comment AUTO DIFF Differential Comment AUTO DIFF CONFIRMED Platelet Estimate LOW Platelet Morphology Comment NORMAL Red Cell Morphology Comment NORMAL Blood Urea Nitrogen 5 Creatinine 0.61 Random Glucose 91 Calcium Level 7.5 Sodium Level 133 Potassium Level 3.6 Chloride Level 98 Carbon Dioxide Level 25.4 Anion Gap 10 Estimat Glomerular Filtration Rate 141 Date/Time Source Procedure Growth Status 12/06/16 16:38 Blood Peripheral Aerobic Blood Culture - Preliminary NO GROWTH IN 1 DAY Resulted 12/06/16 16:38 Blood Peripheral Anaerobic Blood Culture - Preliminary NO GROWTH IN 1 DAY Resulted Result Diagram: 12/07/16 1134 12/07/16 1134 Imaging Last Impressions Multiplanar Reconstruction 12/07/16 1349 Signed Impressions: Service Date/Time: Wednesday, December 07, 2016 12:23 - CONCLUSION: 3-D reconstructions reveal anatomic alignment extensive plate and screws.. Cristofer Navas MD FACR Maxillofacial CT 12/06/16 0000 Signed Impressions: Service Date/Time: Tuesday, December 06, 2016 12:23 - CONCLUSION: 1. There has been prior plating of a mandibular fracture. There is a large area of abnormal soft tissue and a septated fluid collection involving the right lead medical technologist space with extension into the masseter muscle on the right and up into the right parotid gland. There is rarefaction of bone around the patient's plate. Findings would be consistent with osteomyelitis and abscess. Findings are discussed in detail above. Sage Navas MD Chest X-Ray 12/06/16 0000 Signed Impressions: Service Date/Time: Tuesday, December 06, 2016 12:08 - CONCLUSION: 1. There is a new area of atelectasis or infiltrate at the left lung base. Pneumonia is not excluded. 2. COPD changes. Sage Navas MD Assessment and Plan Assessment and Plan R mandibular chronic osteomylitis - for sugery today ETOH abuse wth s/o wthdrawl Cont unasyn will follow op clx Discussed Condition With Amina Black MD Dec 07, 2016 16:27
[2016-12-07] MEDS ORDERED: ceFAZolin INJ 1,000 MG VIAL ONE (16:45)
[2016-12-07] MEDS ORDERED: HYDROmorphone HCL PF 2 MG/ML VIAL ONE (17:48)
[2016-12-07] MEDS ORDERED: DO NOT ADM ANY ANTICOAGULANT DRUGS PRN (18:10)
--- NOTE | 2016-12-07 18:23 | HHI.PR ---
Immediate Post Op Note Procedure Date: Dec 07, 2016 Pre Op Diagnosis: Failed hardware right mandible angle region abscess right mandible Post Op Diagnosis: luis Surgeon: dAan Joseph Barge Pilot(s): ailin abebe Procedure: I and d right mandible abscess removal of failed hardware right mandible irrigation and debridement of right mandible biopsy right mandible tissue closed reduction right mandible fracture Complications: none Specimen(s) removed: soft tissue around failed hardware -right mandible pus sent for culture Estimated blood loss: 20 cc Anesthesia: General, Local (2%lidocaine with 1:200,000 epi) Drains: Phan (1/4 inch phan drain right mandible region x 2 ) Patient to: PACU Patient Condition: Good Date/Time of Procedure: SEE SURGICAL CARE RECORD Adan Joseph DMD Dec 07, 2016 18:23
[2016-12-07] MEDS: methylPREDNISolone SOD SUCC 125 MG/2 ML VIAL IV SCH (19:00)
[2016-12-07] MEDS: MULTIVITAMIN INJ 10 ML, FOLIC ACID INJ 1 MG in SODIUM CHLORID 0.9% 500 ML INJ 500 ML IV SCH (19:15)
[2016-12-07] MEDS ORDERED: *morphine SULFATE 8 MG/ML PERIprocedure ONLY ONE (19:18)
[2016-12-07] MEDS: THIAMINE INJ 100 MG in SODIUM CHLORIDE 0.9% INJ 100 ML IV SCH (20:00)
[2016-12-07 23:20] VITALS: O2SAT 95
[2016-12-08] MEDS: SODIUM CHLOR 0.9% 1000 ML INJ 1,000 ML IV SCH ×3 (00:29→16:43)
[2016-12-08] MEDS: methylPREDNISolone SOD SUCC 125 MG/2 ML VIAL IV SCH (00:32)
[2016-12-08] MEDS: LORazepam 2 MG/ML VIAL IV PUSH PRN ×6 (01:19→21:37)
[2016-12-08] MEDS ORDERED: methylPREDNISolone ACETATE 80 MG/ML VIAL IM ONE (02:00)
[2016-12-08] MEDS ORDERED: RESP: ALBUTEROL CONC 2.5 MG/0.5 ML NEB ONE (03:43)
[2016-12-08] MEDS ORDERED: RESP: IPRATROPIUM 0.5 MG/2.5 ML NEB ONE (03:43)
[2016-12-08] MEDS: RESP: ALBUTEROL 2.5 MG/IPRATROPIUM 0.5 MG NEB (SCH) NEB ×3 (03:47→12:20)
[2016-12-08] MEDS: AMPICILLIN-SULBACTAM INJ 3 GM in SODIUM CHLORIDE 0.9% INJ 100 ML IV SCH ×3 (05:18→16:43)
[2016-12-08] MEDS: MORPHINE SULFATE 4 MG/ML INJ IV PUSH PRN ×4 (05:18→19:20)
--- NOTE | 2016-12-08 07:15 | MP ---
cc: ISADORA JOSEPH DMD DATE OF SURGERY December 07, 2016 PREOPERATIVE DIAGNOSES 1. Failed hardware right mandible angle region. 2. Abscess right mandible. POSTOPERATIVE DIAGNOSES 1. Failed hardware right mandible angle region. 2. Abscess right mandible. PROCEDURES 1. Incision and drainage right mandible abscess. 2. Removal of the failed hardware right mandible. 3. Irrigation and debridement of the right mandible. 4. Biopsy right mandible tissue. 5. Closed reduction of the right mandible fracture. ANESTHESIA General, also 2% lidocaine with 1:200,000 epinephrine approximately [address] Joseph [facility] Angel Horan COMPLICATIONS None. ESTIMATED BLOOD LOSS 20 cc. SPECIMEN Soft tissue around failed hardware right mandible. Pus sent for culture. DISPOSITION The patient extubated and taken to the PACU. INDICATIONS FOR PROCEDURE This is a 46-year-old male with a long history of alcohol intoxication, noncompliance, smoking, altercations who had his mandible on the right side repaired by in June of 2015. Did not followup in office well. He continues to drink and smoke. He came back in August 2015 with failed hardware right side which was removed and a longer recon plate was placed. The patient again presents with the same swelling. He came to the hospital recently and left against medical advice. He has got a swelling on the right side of the face mandible region, collection of pus and failed hardware. The scan does show that on the superior aspect of the ascending ramus I do not appreciate too muscle bone as I could see from the previous time we had plated him. To restore proper function it is necessary that the patient undergo the above-listed procedure. Benefits, risks, indication of the procedure, procedure in detail and the options of no treatment were all discussed with this patient. The risks are not limited to any postop pain, infection, bleeding, damage to the adjacent teeth, soft tissue, anesthesia complications, numbness, malunion, nonunion at the fracture sites, for this surgical procedure as required. All questions and concerns were addressed. Consent is signed and in the chart. PROCEDURE DETAILS The patient was met perioperatively. All questions and concerns were addressed. The rest of the face was marked. The patient was taken to the operating suite, draped in normal sterile fashion, underwent Quincy scope nasal intubation. The tube was secured and the headdress wrapped in normal standard OMS fashion. Eyes were taped shut. All pressure points were padded. At this time a time-out was taken to identify the patient, the site, the procedure and the surgeon and all were in agreement. The patient was prepped with Betadine solution. The patient was draped in normal sterile fashion. I could see the fluctuance on the right side of his face. An 18 gauge needle was used to aspirate and get some pus out. Blunt hemostat was used and blunt dissection was done and all the pus came out. It was sent for culture, irrigated nicely with saline solution. Went a little bit in the medial aspect at the area of the greatest fluctuance; it was near the angle of the mandible and again did the same procedure. Exam was done now intraorally. The plate is now noted on the right side of the mandible. The mandible appears stable. No false point of motion. The back of the throat was suctioned, moistened Ray-Sukhi used as a throat pack. Peridex mouth rinse was done. 2% lidocaine with 1:1000 epinephrine was injected in the maxilla and mandibular vestibules on the right side of the surgical site. Arch bars were placed using 24-gauge wires to the maxilla and mandibular regions. Bovie was used to make an incision from the region of the exposed plates, going up the ascending ramus gently. Periosteal elevator was used to reflect off the tissue and I could see the plate is loose. Used the periosteal elevator, just pried the plate off the mandible in the inferior aspect but on the superior aspect the original bone that I could see was all resorbed. All a bunch of inflammatory tissue also was noted. Took the whole plate out in its entirety with its five screws. Irrigated the whole site. A curette was used to remove any nonviable tissue. A biopsy of the tissue was done in the inferior aspect of the mandible anterior plate. The tissue inside was removed and sent for specimen. Bovie was used to cauterize any bleeders. Avitene was placed into the site. Prior to the Avitene being placed the area was all irrigated with saline solution. Avitene was placed and finally the site was closed with 3-0 Vicryl suture. The back of the throat was suctioned. The throat pack and the bite block which was placed previously was now removed. Note that prior to placement of all the Avitene, I moved the mandible lateral excursions protrusive retrusive. The whole piece is moving in one unison and you could see the condyles and the temporomandibular joint and the ascending ramus moved. It is telling me that there is some union from the previous angle fracture. The same thing on both the sides. There is no independent or any false point of motion of the mandible. The whole thing is moving in unison. Bite block and throat pack were removed. The back of the throat was suctioned and now the patient was placed into intermaxillary fixation with 24-gauge wires. Outside of the right side of the mandible face region I irrigated again with saline solution. Put two 1/4-inch Phan drains attached with a 2-0 silk suture. Finally a pressure dressing was placed on the outside. The patient tolerated the procedure well, was extubated and taken to the PACU. All sponge and needle counts were all accounted for. Isadora Joseph DMD RRT/MACIEJ /6:17 PM /6:52 AM
--- NOTE | 2016-12-08 08:02 | HHI.PR ---
Subjective Remarks POD 1 s/p removal of failed hardware right mandible I & D right mandible abscess, biopsy right mandible soft tissue pt seen and examined aaox3, nad no complaints Objective Vital Signs Date Time Temp Pulse Resp B/P (MAP) Pulse Ox O2 Delivery O2 Flow Rate FiO2 12/08/16 06:00 89 19 94/60 (71) 94 Nasal Cannula 2 12/08/16 05:00 98.9 91 10 95/66 (76) 94 Nasal Cannula 2 12/08/16 04:00 89 10 96/66 (76) 95 Nasal Cannula 2 12/08/16 03:00 80 15 93/66 (75) 98 Nasal Cannula 2 12/08/16 02:00 93 15 106/75 (85) 98 Nasal Cannula 2 12/08/16 01:00 91 12 94/69 (77) 98 Nasal Cannula 2 12/07/16 23:20 95 Nasal Cannula 2.00 12/07/16 23:17 15 12/07/16 21:00 102 12 106/75 (85) 95 Nasal Cannula 2 12/07/16 20:00 97.6 94 12 119/79 (92) 96 Nasal Cannula 2 12/07/16 19:45 93 12 121/84 (96) 97 Simple Mask 6 12/07/16 19:30 96 12 129/94 (106) 96 Simple Mask 6 12/07/16 19:15 108 14 131/93 (106) 96 Simple Mask 6 12/07/16 19:00 90 10 128/88 (101) 96 Simple Mask 6 12/07/16 18:45 93 12 120/88 (99) 96 Simple Mask 6 12/07/16 18:30 91 12 113/79 (90) 96 Simple Mask 6 12/07/16 18:15 94 13 105/74 (84) 99 Simple Mask 6 12/07/16 18:11 98.7 97 12 105/74 (84) 98 Simple Mask 6 12/07/16 16:00 97.5 98 20 122/58 (79) 98 12/07/16 12:00 98.2 93 20 106/75 (85) 93 12/07/16 08:00 98.6 92 20 117/82 (94) 98 I/O 12/07/16 12/07/16 12/07/16 12/08/16 12/08/16 12/08/16 07:00 15:00 23:00 07:00 15:00 23:00 Intake Total 610 ml 0 ml 1600 ml 1704.2 ml Output Total 650 ml 0 ml 100 ml 750 ml Balance -40 ml 0 ml 1500 ml 954.2 ml Intake Oral 0 ml 0 ml IV Total 610 ml 100 ml 1704.2 ml Other 1500 ml Output Urine Total 650 ml 0 ml 750 ml Other 100 ml # Voids 3 4 3 # Bowel Movements 0 Result Diagram: 12/07/16 1134 12/07/16 1134 Procedures None Other Results micro/path pending Objective Remarks right facial edema decreased/softer facial/mandible drains in place hemostatic/no pus noted - dressing in place bite in occlusion/ arch bars and wires in place wire cutters noted at bedside Assessment and Plan Assessment and Plan POD 1 s/p removal of failed hardware right mandible I & D right mandible abscess, biopsy right mandible soft tissue advance to full liquid diet as tolerated ok for regular floor - monitored- telemetry oms following wire cutters with pt at all times Adan Joseph DMD Dec 08, 2016 08:02
[2016-12-08] MEDS: guaiFENesin E.R. 600 MG TAB PO SCH ×2 (09:00→21:00)
[2016-12-08] MEDS: SODIUM CHLORIDE 0.9% FLUSH 10 ML FLUSH IV FLUSH SCH ×2 (09:00→21:00)
[2016-12-08] MEDS: DOCUSATE SODIUM 50 MG/SENNA 8.6 MG TAB PO SCH ×2 (09:00→21:00)
[2016-12-08 09:04] VITALS: O2SAT 96
--- NOTE | 2016-12-08 10:07 | EKG ---
Date Performed: 12/07/2016 Time Performed: 16:09:30 PTAGE: 46 years EKG: SINUS TACHYCARDIA POSSIBLE RIGHT VENTRICULAR CONDUCTION DELAY ANTEROSEPTAL MYOCARDIAL INFAR CTION , OF INDETERMINATE AGE ABNORMAL ECG PREVIOUS TRACING : 05/30/2015 16.35 Compared to prior tracing no significant change DOCTOR: Bruce Ibarra Interpretating Date/Time 12/08/2016 10:05:48
--- NOTE | 2016-12-08 13:16 | HHI.PR ---
Subjective Remarks This is a pleasant 46 y/o Male with complaint of right sided jaw swelling, He has had it for 8 months. Patient had jaw reconstructive surgery June 2015. Was hospitalized June 2016 for an infection in that area but he left AMA. He is a homeless alcoholic who has not followed up with anybody since. Now his right side of his face is swollen up like a baseball. Symptoms moderately severe. Symptoms are exacerbated by his noncompliance. No alleviating factors. He was drinking alcohol earlier today. 12/07: Seen by Maxillofacial surgery technician, he has Right mandible abscess and Osteomyelitis, failure of hardware right angle of the mandible recommended for Surgery today, by Doctor Adan Joseph. 12/08: Stable will go for procedure later today, no nausea, vomit or diarrhea Objective Vital Signs Date Time Temp Pulse Resp B/P (MAP) Pulse Ox O2 Delivery O2 Flow Rate FiO2 12/08/16 09:04 96 Nasal Cannula 2.00 12/08/16 08:30 97.9 92 19 98/69 (79) 96 Nasal Cannula 2 12/08/16 06:00 89 19 94/60 (71) 94 Nasal Cannula 2 12/08/16 05:00 98.9 91 10 95/66 (76) 94 Nasal Cannula 2 12/08/16 04:00 89 10 96/66 (76) 95 Nasal Cannula 2 12/08/16 03:00 80 15 93/66 (75) 98 Nasal Cannula 2 12/08/16 02:00 93 15 106/75 (85) 98 Nasal Cannula 2 12/08/16 01:00 91 12 94/69 (77) 98 Nasal Cannula 2 12/07/16 23:20 95 Nasal Cannula 2.00 12/07/16 23:17 15 12/07/16 21:00 102 12 106/75 (85) 95 Nasal Cannula 2 12/07/16 20:00 97.6 94 12 119/79 (92) 96 Nasal Cannula 2 12/07/16 19:45 93 12 121/84 (96) 97 Simple Mask 6 12/07/16 19:30 96 12 129/94 (106) 96 Simple Mask 6 12/07/16 19:15 108 14 131/93 (106) 96 Simple Mask 6 12/07/16 19:00 90 10 128/88 (101) 96 Simple Mask 6 12/07/16 18:45 93 12 120/88 (99) 96 Simple Mask 6 12/07/16 18:30 91 12 113/79 (90) 96 Simple Mask 6 12/07/16 18:15 94 13 105/74 (84) 99 Simple Mask 6 12/07/16 18:11 98.7 97 12 105/74 (84) 98 Simple Mask 6 12/07/16 16:00 97.5 98 20 122/58 (79) 98 I/O 12/07/16 12/07/16 12/07/16 12/08/16 12/08/16 12/08/16 07:00 15:00 23:00 07:00 15:00 23:00 Intake Total 610 ml 0 ml 1600 ml 1704.2 ml 987 ml Output Total 650 ml 0 ml 100 ml 750 ml 650 ml Balance -40 ml 0 ml 1500 ml 954.2 ml 337 ml Intake Oral 0 ml 0 ml 360 ml IV Total 610 ml 100 ml 1704.2 ml 627 ml Other 1500 ml Output Urine Total 650 ml 0 ml 750 ml 650 ml Other 100 ml # Voids 3 4 3 # Bowel Movements 0 Result Diagram: 12/07/16 1134 12/07/16 1134 Imaging Last Impressions Multiplanar Reconstruction 12/07/16 1349 Signed Impressions: Service Date/Time: Wednesday, December 07, 2016 12:23 - CONCLUSION: 3-D reconstructions reveal anatomic alignment extensive plate and screws.. Cristofer Navas MD FACR Maxillofacial CT 12/06/16 0000 Signed Impressions: Service Date/Time: Tuesday, December 06, 2016 12:23 - CONCLUSION: 1. There has been prior plating of a mandibular fracture. There is a large area of abnormal soft tissue and a septated fluid collection involving the right departure clerk space with extension into the masseter muscle on the right and up into the right parotid gland. There is rarefaction of bone around the patient's plate. Findings would be consistent with osteomyelitis and abscess. Findings are discussed in detail above. Sage Navas MD Chest X-Ray 12/06/16 0000 Signed Impressions: Service Date/Time: Tuesday, December 06, 2016 12:08 - CONCLUSION: 1. There is a new area of atelectasis or infiltrate at the left lung base. Pneumonia is not excluded. 2. COPD changes. Sage Navas MD Procedures None Other Results Laboratory Tests Test 12/06/16 11:40 12/06/16 18:21 12/07/16 11:34 Differential Total Cells Counted 100 Neutrophils % (Manual) 56 % Band Neutrophils % 9 % Lymphocytes % 25 % Monocytes % 5 % Eosinophils % 2 % Basophils % 2 % Neutrophils # (Manual) 4.9 TH/MM3 Metamyelocytes 1 % Toxic Granulation 1+ Prothrombin Time 12.9 SEC Prothromb Time International Ratio 1.2 RATIO Activated Partial Thromboplast Time 32.7 SEC Ethyl Alcohol Level 283 MG/DL Total Bilirubin 0.4 MG/DL Direct Bilirubin 0.3 MG/DL Indirect Bilirubin 0.1 MG/DL Aspartate Amino Transf (AST/SGOT) 243 U/L Alanine Aminotransferase (ALT/SGPT) 86 U/L Alkaline Phosphatase 85 U/L Total Protein 8.1 GM/DL Albumin 2.4 GM/DL Hepatitis A IgM Antibody NEGATIVE Hepatitis B Surface Antigen NEGATIVE Hepatitis B Core IgM Antibody NEGATIVE Hepatitis C Antibody REACTIVE White Blood Count 7.4 TH/MM3 Red Blood Count 3.64 MIL/MM3 Hemoglobin 11.5 GM/DL Hematocrit 33.7 % Mean Corpuscular Volume 92.5 FL Mean Corpuscular Hemoglobin 31.4 PG Mean Corpuscular Hemoglobin Concent 34.0 % Red Cell Distribution Width 13.5 % Platelet Count 63 TH/MM3 Mean Platelet Volume 10.1 FL Neutrophils (%) (Auto) 72.2 % Lymphocytes (%) (Auto) 17.0 % Monocytes (%) (Auto) 7.9 % Eosinophils (%) (Auto) 1.1 % Basophils (%) (Auto) 1.8 % Neutrophils # (Auto) 5.3 TH/MM3 Lymphocytes # (Auto) 1.3 TH/MM3 Monocytes # (Auto) 0.6 TH/MM3 Eosinophils # (Auto) 0.1 TH/MM3 Basophils # (Auto) 0.1 TH/MM3 CBC Comment AUTO DIFF Differential Comment AUTO DIFF CONFIRMED Platelet Estimate LOW Platelet Morphology Comment NORMAL Red Cell Morphology Comment NORMAL Blood Urea Nitrogen 5 MG/DL Creatinine 0.61 MG/DL Random Glucose 91 MG/DL Calcium Level 7.5 MG/DL Sodium Level 133 MEQ/L Potassium Level 3.6 MEQ/L Chloride Level 98 MEQ/L Carbon Dioxide Level 25.4 MEQ/L Anion Gap 10 MEQ/L Estimat Glomerular Filtration Rate 141 ML/MIN Objective Remarks GENERAL: Thin cachectic disheveled patient in no apparent distress. SKIN: Focused skin assessment reveals no rash and nodules. Skin is Warm and dry. HEAD: Atraumatic. Normocephalic. EYES: Pupils equal and round. No scleral icterus. No injection or drainage. ENT: No nasal bleeding or discharge. Mucous membranes pink and moist. Has extensive swelling to the right mandible area. There is some tenderness there there is no fluctuance or drainage. Oral cavity examination reveals that his hardware is visible all along the inner gumline on the right side. NECK: Trachea midline. No JVD. CARDIOVASCULAR: Regular rate and rhythm. No murmur appreciated. RESPIRATORY: No accessory muscle use. Occasional expiratory wheeze. Breath sounds equal bilaterally. GASTROINTESTINAL: Abdomen soft, non-tender, nondistended. Hepatic and splenic margins not palpable. MUSCULOSKELETAL: No obvious deformities. No clubbing. No cyanosis. Symmetric edema of the lower legs NEUROLOGICAL: Awake and alert. No obvious cranial nerve deficits. Motor grossly within normal limits. Normal speech. PSYCHIATRIC: Appropriate mood and affect; insight and judgment normal. Medications and IVs Current Medications Medications (Trade) Dose Ordered Sig/Sobeida Route Start Time Stop Time Status Last Admin Sodium Chloride 1,000 ml @ 100 mls/hr Q10H IV 12/06/16 15:00 12/08/16 10:00 (NS Flush) 2 ml UNSCH PRN IV FLUSH 12/06/16 14:45 (NS Flush) 2 ml BID IV FLUSH 12/06/16 21:00 12/08/16 09:00 (Tylenol) 650 mg Q4H PRN PO 12/06/16 14:45 12/06/16 23:20 (Zofran Inj) 4 mg Q6H PRN IVP 12/06/16 14:45 (Narcan Inj) 0.4 mg UNSCH PRN IV PUSH 12/06/16 14:45 (Kelle-Colace) 1 tab BID PO 12/06/16 21:00 12/06/16 19:39 (Milk Of Magnesia Liq) 30 ml Q12H PRN PO 12/06/16 14:45 (Senokot) 17.2 mg Q12H PRN PO 12/06/16 14:45 (Dulcolax Supp) 10 mg DAILY PRN RECTAL 12/06/16 14:45 (Lactulose Liq) 30 ml DAILY PRN PO 12/06/16 14:45 Ampicillin Sodium/ Sulbactam Sodium 3 gm/Sodium Chloride 100 ml @ 200 mls/hr Q6H IV 12/06/16 18:00 12/08/16 05:18 (Duoneb Neb) 1 ampule Q4HR NEB NEB 12/06/16 16:00 12/08/16 09:04 (Mucinex Er) 600 mg BID PO 12/06/16 21:00 12/06/16 19:39 Multivitamins 10 ml/Folic Acid 1 mg/Sodium Chloride 510.2 ml @ 125 mls/hr Q24H IV 12/06/16 17:00 12/11/16 16:59 12/07/16 19:15 Thiamine HCl 100 mg/Sodium Chloride 101 ml @ 100 mls/hr Q24H IV 12/06/16 16:00 12/08/16 17:01 12/07/16 20:00 (Vitamin B1) 100 mg DAILY PO 12/09/16 09:00 (Romazicon Inj) 0.2 mg Q1M PRN IV PUSH 12/06/16 15:30 (Ativan) 1 mg Q4H PRN PO 12/06/16 15:30 12/06/16 22:00 (Ativan Inj) 1 mg Q4H PRN IV PUSH 12/06/16 15:30 12/08/16 08:00 (Ativan) 2 mg Q2H PRN PO 12/06/16 15:30 12/06/16 19:47 (Ativan Inj) 2 mg Q2H PRN IV PUSH 12/06/16 15:30 12/07/16 12:22 (Ativan Inj) 2 mg Q1H PRN IV PUSH 12/06/16 15:30 (Ativan Inj) 2 mg Q15M PRN IV PUSH 12/06/16 15:30 (Morphine Inj) 2 mg Q3H PRN IV PUSH 12/06/16 19:30 12/08/16 08:13 Miscellaneous Information ALL NURSING DEPARTME... UNSCH PRN .XX 12/07/16 18:10 12/08/16 18:09 A/P Assessment and Plan 1. Osteomyelitis and Abscess of the Right Mandibular area, status post CT scan of Facial Bones with Contrast with Diagnosis There has been prior plating of a mandibular fracture. There is a large area of abnormal soft tissue and a septated fluid collection involving the right departure clerk space with extension into the masseter muscle on the right and up into the right parotid gland. There is rarefaction of bone around the patient's plate. Findings would be consistent with osteomyelitis and abscess. Findings are discussed in detail above. Initially given Zosyn in ER, as per patient states he has this edema for the last 8 months, he left AMA in June and did not wanted to pursue treatment, status post IV fluids, found Thrombocytopenia probable secondary to alcohol abuse and probable Liver pathology, Patient discussed by ER physician with Maxillofacial equipment validation specialist Doctor Jake and recommended for admission, he will come to see the patient, continue with SCDs, will have procedure later today. 2. Alcohol intoxication in active alcoholic patient, strongly recommended to stop drinking alcohol, CIWA protocol 3. Tobacco dependence strongly recommended to stop smoking 4. COPD stable on Bronchodilator, Mucolytic and Incentive spirometry 5. Thrombocytopenia/Anemia 6. LFTs elevated in the past asked for hepatitis profile 7. Polysubstance abuse in the past drug screen now 8. Lower extremity lesions wound care to follow. DVT prophylaxis with SCDs Code Status Full Code. Discussed Condition With Patient and nurse. Jose Clayton MD Dec 08, 2016 13:16
[2016-12-08] MEDS: THIAMINE INJ 100 MG in SODIUM CHLORIDE 0.9% INJ 100 ML IV SCH (16:06)
--- NOTE | 2016-12-08 17:56 | RADRPT ---
EXAM DATE/TIME: 12/08/2016 17:06 [facility] COMPARISON: No previous studies available for comparison. INDICATIONS : Post op right mandible. MEDICAL HISTORY : None. SURGICAL HISTORY : Previous left side of jaw surgery years ago. ENCOUNTER: Initial ACUITY: 2 days PAIN SCORE: 10/10 LOCATION: Right jaw. FINDINGS: Extensive postsurgical changes are identified. There are short fixation plates identified along the m andible. 3 discrete plates are identified. The teeth have been wired shut with braces and fixation wires. Increased density is identified in the right maxillary sinus. Temporomandibular joint alignment is difficult to assess. Radiopaque drain is identified in the submandibular region. CONCLUSION: Extensive postsurgical changes involving the mandible as described above. Baltazar Nieto MD on December 08, 2016 at 17:51 Board Certified Radiologist. This report was verified electronically.
[2016-12-08] MEDS: MULTIVITAMIN INJ 10 ML, FOLIC ACID INJ 1 MG in SODIUM CHLORID 0.9% 500 ML INJ 500 ML IV SCH (19:20)
[2016-12-08 20:00] VITALS: BP 106/76; PULSE 120; RESP 20; TEMP 97.7; O2SAT 94
[2016-12-08 21:40] VITALS: PULSE 121
[2016-12-09] VITALS (12 sets, daily range): BP systolic 93–125; BP diastolic 59–94; PULSE 60–114; RESP 17–22; TEMP 97.2–98.4; O2SAT 92–100
[2016-12-09] MEDS: AMPICILLIN-SULBACTAM INJ 3 GM in SODIUM CHLORIDE 0.9% INJ 100 ML IV SCH ×4 (00:59→17:45)
[2016-12-09] MEDS: LORazepam 2 MG/ML VIAL IV PUSH PRN (00:59)
[2016-12-09] MEDS: RESP: ALBUTEROL 2.5 MG/IPRATROPIUM 0.5 MG NEB (SCH) NEB ×5 (01:06→20:51)
[2016-12-09] MEDS ORDERED: HALOPERIDOL LACTATE 5 MG/ML AMP IV PUSH ONE ×4 (01:15→04:45)
[2016-12-09] MEDS ORDERED: LORazepam 2 MG/ML VIAL IV PUSH ONE ×6 (01:40→04:45)
[2016-12-09] MEDS ORDERED: DEXMEDETOMIDINE HCL 200 MCG/2 ML VIAL IV PUSH ONE (03:00)
[2016-12-09] MEDS: SODIUM CHLOR 0.9% 1000 ML INJ 1,000 ML IV SCH ×2 (06:20→13:00)
[2016-12-09 07:29] LABS: BICARBONATE 25.1 MEQ/L (21.0-32.0); MAGNESIUM 0.9 MG/DL (1.5-2.5); POTASSIUM 3.4 MEQ/L (3.5-5.1)
--- NOTE | 2016-12-09 08:05 | HHI.PR ---
Subjective Remarks POD 2 s/p removal of failed hardware right mandible I & D right mandible abscess, biopsy right mandible soft tissue pt seen and examined aaox3, nad overnight transferred to icu - . D.T. Objective Vital Signs Date Time Temp Pulse Resp B/P (MAP) Pulse Ox O2 Delivery O2 Flow Rate FiO2 12/09/16 06:50 98.4 93 22 125/94 (104) 93 12/09/16 06:36 97.6 100 18 119/85 (96) 92 12/09/16 06:28 98 21 12/09/16 04:00 98.1 114 20 115/84 (94) 95 12/09/16 00:00 97.3 109 20 125/86 (99) 95 12/08/16 21:40 121 12/08/16 20:00 97.7 120 20 106/76 (86) 94 12/08/16 12:10 106 18 112/57 (75) 96 Nasal Cannula 2 12/08/16 09:04 96 Nasal Cannula 2.00 12/08/16 08:30 97.9 92 19 98/69 (79) 96 Nasal Cannula 2 I/O 12/08/16 12/08/16 12/08/16 12/09/16 12/09/16 12/09/16 07:00 15:00 23:00 07:00 15:00 23:00 Intake Total 1704.2 ml 1087 ml 653 ml 1052.2 ml Output Total 750 ml 650 ml 400 ml Balance 954.2 ml 437 ml 653 ml 652.2 ml Intake Oral 360 ml 120 ml IV Total 1704.2 ml 727 ml 653 ml 932.2 ml Output Urine Total 750 ml 650 ml 400 ml # Voids 3 2 # Bowel Movements 0 Result Diagram: 12/07/16 1134 12/09/16 0634 Procedures None Other Results GRAM STAIN Final 12/08/16-0823 RARE EPITHELIAL CELL MANY WBC'S RARE GRAM POSITIVE COCCI IN PAIRS FEW PLEOMORPHIC GRAM POSITIVE RODS WOUND CULTURE Preliminary 12/08/16-1340 NO GROWTH IN 24 HOURS. Objective Remarks right facial edema decreased/softer facial/mandible drains in place hemostatic/no pus noted - dressing in place bite in occlusion/ arch bars and wires in place wound margins well approximated sutures intact wire cutters noted at bedside Assessment and Plan Assessment and Plan POD 2 s/p removal of failed hardware right mandible I & D right mandible abscess, biopsy right mandible soft tissue advance to full liquid diet as tolerated in treatment for D.T. GRAM STAIN Final 12/08/16 RARE EPITHELIAL CELL MANY WBC'S RARE GRAM POSITIVE COCCI IN PAIRS FEW PLEOMORPHIC GRAM POSITIVE RODS WOUND CULTURE Preliminary 12/08/166 NO GROWTH IN 24 HOURS. path pending oms following plan drain removal tomorrow wire cutters with pt at all times Adan Joseph DMD Dec 09, 2016 08:05
[2016-12-09] MEDS: DEXMEDETOMIDINE INJ 200 MCG in SODIUM CHLORIDE 0.9% INJ 50 ML IV PRN ×3 (10:47→20:37)
--- NOTE | 2016-12-09 11:41 | HHI.PR ---
Subjective Remarks This is a pleasant 46 y/o Male with complaint of right sided jaw swelling, He has had it for 8 months. Patient had jaw reconstructive surgery June 2015. Was hospitalized June 2016 for an infection in that area but he left AMA. He is a homeless alcoholic who has not followed up with anybody since. Now his right side of his face is swollen up like a baseball. Symptoms moderately severe. Symptoms are exacerbated by his noncompliance. No alleviating factors. He was drinking alcohol earlier today. 12/07: Seen by Maxillofacial surgery scheduler, he has Right mandible abscess and Osteomyelitis, failure of hardware right angle of the mandible recommended for Surgery today, by Doctor Adan Joseph. 12/08: for procedure later today 12/09: With Diagnosis of Failed hardware right mandible angle region, Abscess right mandible, status post Incision and drainage right mandible abscess, Removal of the failed hardware right mandible, Irrigation and debridement or the right mandible, Biopsy right mandible tissue, closed reduction of the right mandible fracture. During the night he was transferred to Intensive care unit due to Delirium Tremens, he was seen already by his primary Surgeon recommended to advance to full liquid diet as tolerated, Drain removal for tomorrow, cutters with patient at all times discussed with nurse in his bedroom, he was started on Precedex during the night by Chisel Grinder, electrolyte derangement on active replacement and following. No nausea, vomit or diarrhea. Objective Vital Signs Date Time Temp Pulse Resp B/P (MAP) Pulse Ox O2 Delivery O2 Flow Rate FiO2 12/09/16 06:50 98.4 93 22 125/94 (104) 93 12/09/16 06:36 97.6 100 18 119/85 (96) 92 12/09/16 06:28 98 21 12/09/16 04:00 98.1 114 20 115/84 (94) 95 12/09/16 00:00 97.3 109 20 125/86 (99) 95 12/08/16 21:40 121 12/08/16 20:00 97.7 120 20 106/76 (86) 94 12/08/16 12:10 106 18 112/57 (75) 96 Nasal Cannula 2 I/O 12/08/16 12/08/16 12/08/16 12/09/16 12/09/16 12/09/16 07:00 15:00 23:00 07:00 15:00 23:00 Intake Total 1704.2 ml 1087 ml 653 ml 1052.2 ml Output Total 750 ml 650 ml 850 ml Balance 954.2 ml 437 ml 653 ml 202.2 ml Intake Oral 360 ml 120 ml IV Total 1704.2 ml 727 ml 653 ml 932.2 ml Output Urine Total 750 ml 650 ml 850 ml # Voids 3 2 # Bowel Movements 0 Result Diagram: 12/07/16 1134 12/09/16 0634 Imaging Last Impressions Facial Bones X-Ray 12/08/16 0000 Signed Impressions: Service Date/Time: Thursday, December 08, 2016 17:06 - CONCLUSION: Extensive postsurgical changes involving the mandible as described above. Baltazar Nieto MD Multiplanar Reconstruction 12/07/16 1349 Signed Impressions: Service Date/Time: Wednesday, December 07, 2016 12:23 - CONCLUSION: 3-D reconstructions reveal anatomic alignment extensive plate and screws.. Cristofer Navas MD FACR Maxillofacial CT 12/06/16 0000 Signed Impressions: Service Date/Time: Tuesday, December 06, 2016 12:23 - CONCLUSION: 1. There has been prior plating of a mandibular fracture. There is a large area of abnormal soft tissue and a septated fluid collection involving the right roentgenology teacher space with extension into the masseter muscle on the right and up into the right parotid gland. There is rarefaction of bone around the patient's plate. Findings would be consistent with osteomyelitis and abscess. Findings are discussed in detail above. Sage Navas MD Chest X-Ray 12/06/16 0000 Signed Impressions: Service Date/Time: Tuesday, December 06, 2016 12:08 - CONCLUSION: 1. There is a new area of atelectasis or infiltrate at the left lung base. Pneumonia is not excluded. 2. COPD changes. Sage Navas MD Procedures With Diagnosis of Failed hardware right mandible angle region, Abscess right mandible, status post Incision and drainage right mandible abscess, Removal of the failed hardware right mandible, Irrigation and debridement or the right mandible, Biopsy right mandible tissue, closed reduction of the right mandible fracture. 12/08/16 Other Results Laboratory Tests Test 12/06/16 11:40 12/06/16 18:21 12/07/16 11:34 12/09/16 06:34 Differential Total Cells Counted 100 Neutrophils % (Manual) 56 % Band Neutrophils % 9 % Lymphocytes % 25 % Monocytes % 5 % Eosinophils % 2 % Basophils % 2 % Neutrophils # (Manual) 4.9 TH/MM3 Metamyelocytes 1 % Toxic Granulation 1+ Prothrombin Time 12.9 SEC Prothromb Time International Ratio 1.2 RATIO Activated Partial Thromboplast Time 32.7 SEC Ethyl Alcohol Level 283 MG/DL Total Bilirubin 0.4 MG/DL Direct Bilirubin 0.3 MG/DL Indirect Bilirubin 0.1 MG/DL Aspartate Amino Transf (AST/SGOT) 243 U/L Alanine Aminotransferase (ALT/SGPT) 86 U/L Alkaline Phosphatase 85 U/L Albumin 2.4 GM/DL Hepatitis A IgM Antibody NEGATIVE Hepatitis B Surface Antigen NEGATIVE Hepatitis B Core IgM Antibody NEGATIVE Hepatitis C Antibody REACTIVE White Blood Count 7.4 TH/MM3 Red Blood Count 3.64 MIL/MM3 Hemoglobin 11.5 GM/DL Hematocrit 33.7 % Mean Corpuscular Volume 92.5 FL Mean Corpuscular Hemoglobin 31.4 PG Mean Corpuscular Hemoglobin Concent 34.0 % Red Cell Distribution Width 13.5 % Platelet Count 63 TH/MM3 Mean Platelet Volume 10.1 FL Neutrophils (%) (Auto) 72.2 % Lymphocytes (%) (Auto) 17.0 % Monocytes (%) (Auto) 7.9 % Eosinophils (%) (Auto) 1.1 % Basophils (%) (Auto) 1.8 % Neutrophils # (Auto) 5.3 TH/MM3 Lymphocytes # (Auto) 1.3 TH/MM3 Monocytes # (Auto) 0.6 TH/MM3 Eosinophils # (Auto) 0.1 TH/MM3 Basophils # (Auto) 0.1 TH/MM3 CBC Comment AUTO DIFF Differential Comment AUTO DIFF CONFIRMED Platelet Estimate LOW Platelet Morphology Comment NORMAL Red Cell Morphology Comment NORMAL Blood Urea Nitrogen 5 MG/DL Creatinine 0.44 MG/DL Random Glucose 84 MG/DL Total Protein 7.5 GM/DL Calcium Level 7.1 MG/DL Magnesium Level 0.9 MG/DL Sodium Level 136 MEQ/L Potassium Level 3.4 MEQ/L Chloride Level 101 MEQ/L Carbon Dioxide Level 25.1 MEQ/L Anion Gap 10 MEQ/L Estimat Glomerular Filtration Rate 206 ML/MIN Protein Corrected Calcium 7.0 MG/DL Test 12/09/16 07:05 Objective Remarks GENERAL: somnolent, confused, in no apparent distress. SKIN: Skin is Warm and dry. HEAD: Atraumatic. Normocephalic. EYES: Pupils equal and round. No scleral icterus. No injection or drainage. ENT: No nasal bleeding or discharge. Surgical Wound dressed, decreased edema. NECK: Trachea midline. No JVD. CARDIOVASCULAR: Regular rate and rhythm. No murmur appreciated. RESPIRATORY: No accessory muscle use. decreased breath sounds bilateral. GASTROINTESTINAL: Abdomen soft, non-tender, nondistended. Hepatic and splenic margins not palpable. MUSCULOSKELETAL: No obvious deformities. No clubbing. No cyanosis. Symmetric edema of the lower legs NEUROLOGICAL: Awake and alert. No obvious cranial nerve deficits. Motor grossly within normal limits. Normal speech. PSYCHIATRIC: Appropriate mood and affect; insight and judgment normal. Medications and IVs Current Medications Medications (Trade) Dose Ordered Sig/Sobeida Route Start Time Stop Time Status Last Admin Sodium Chloride 1,000 ml @ 100 mls/hr Q10H IV 12/06/16 15:00 12/09/16 06:20 (NS Flush) 2 ml UNSCH PRN IV FLUSH 12/06/16 14:45 (NS Flush) 2 ml BID IV FLUSH 12/06/16 21:00 12/08/16 09:00 (Tylenol) 650 mg Q4H PRN PO 12/06/16 14:45 12/06/16 23:20 (Zofran Inj) 4 mg Q6H PRN IVP 12/06/16 14:45 (Narcan Inj) 0.4 mg UNSCH PRN IV PUSH 12/06/16 14:45 (Kelle-Colace) 1 tab BID PO 12/06/16 21:00 12/06/16 19:39 (Milk Of Magnesia Liq) 30 ml Q12H PRN PO 12/06/16 14:45 (Senokot) 17.2 mg Q12H PRN PO 12/06/16 14:45 (Dulcolax Supp) 10 mg DAILY PRN RECTAL 12/06/16 14:45 (Lactulose Liq) 30 ml DAILY PRN PO 12/06/16 14:45 Ampicillin Sodium/ Sulbactam Sodium 3 gm/Sodium Chloride 100 ml @ 200 mls/hr Q6H IV 12/06/16 18:00 12/09/16 10:46 (Duoneb Neb) 1 ampule Q4HR NEB NEB 12/06/16 16:00 12/09/16 01:06 (Mucinex Er) 600 mg BID PO 12/06/16 21:00 12/06/16 19:39 Multivitamins 10 ml/Folic Acid 1 mg/Sodium Chloride 510.2 ml @ 125 mls/hr Q24H IV 12/06/16 17:00 12/11/16 16:59 12/08/16 19:20 (Vitamin B1) 100 mg DAILY PO 12/09/16 09:00 (Romazicon Inj) 0.2 mg Q1M PRN IV PUSH 12/06/16 15:30 (Ativan) 1 mg Q4H PRN PO 12/06/16 15:30 12/06/16 22:00 (Ativan Inj) 1 mg Q4H PRN IV PUSH 12/06/16 15:30 12/08/16 16:06 (Ativan) 2 mg Q2H PRN PO 12/06/16 15:30 12/06/16 19:47 (Ativan Inj) 2 mg Q2H PRN IV PUSH 12/06/16 15:30 12/09/16 00:59 (Ativan Inj) 2 mg Q1H PRN IV PUSH 12/06/16 15:30 (Ativan Inj) 2 mg Q15M PRN IV PUSH 12/06/16 15:30 (Morphine Inj) 2 mg Q3H PRN IV PUSH 12/06/16 19:30 12/08/16 19:20 Dexmedetomidine HCl 200 mcg/ Sodium Chloride 52 ml @ 3.03 mls/hr TITRATE PRN IV 12/09/16 03:00 12/09/16 10:47 Calcium Gluconate 1 gm/Sodium Chloride 110 ml @ 110 mls/hr ONCE ONCE IV 12/09/16 12:00 12/09/16 12:59 A/P Assessment and Plan 1. Osteomyelitis and Abscess of the Right Mandibular area, status post CT scan of Facial Bones with Contrast with Diagnosis There has been prior plating of a mandibular fracture. There is a large area of abnormal soft tissue and a septated fluid collection involving the right roentgenology teacher space with extension into the masseter muscle on the right and up into the right parotid gland. There is rarefaction of bone around the patient's plate. Findings would be consistent with osteomyelitis and abscess. Findings are discussed in detail above. Initially given Zosyn in ER, as per patient states he has this edema for the last 8 months, he left AMA in June and did not wanted to pursue treatment, status post IV fluids, found Thrombocytopenia probable secondary to alcohol abuse and probable Liver pathology, With Diagnosis of Failed hardware right mandible angle region, Abscess right mandible, status post Incision and drainage right mandible abscess, Removal of the failed hardware right mandible, Irrigation and debridement or the right mandible, Biopsy right mandible tissue, closed reduction of the right mandible fracture. 2. Alcohol abuse now in active Delirium Tremens in Intensive Care unit, on Precedex and CIWA protocol. 3. Severe electrolyte derangement on active replacement and following. 4. COPD stable on Bronchodilator, Mucolytic and Incentive spirometry 5. Thrombocytopenia/Anemia 6. LFTs elevated in the past asked for hepatitis profile 7. Polysubstance abuse in the past drug screen now 8. Lower extremity lesions wound care to follow. 9. Tobacco dependence strongly recommended to stop smoking DVT prophylaxis with SCDs Awaiting recommendations by maxillofacial medical billing and coding specialist Consult car rental manager blood cultures Code Status Full Code. Discussed Condition With Patient and nurse in the room. Discharge Planning Once cleared by specialists. Jose Clayton MD Dec 09, 2016 11:41
[2016-12-09] MEDS ORDERED: MAGNESIUM SULFATE 1 GM PREMIX 100 ML IV SCH (11:45)
[2016-12-09] MEDS ORDERED: CALCIUM GLUCONATE INJ 1 GM in SODIUM CHLORIDE 0.9% INJ 100 ML IV ONE (12:00)
[2016-12-09] MEDS: POTASSIUM CHLOR 10 MEQ PREMIX 100 ML IV SCH ×3 (12:45→13:45)
[2016-12-09] MEDS ORDERED: MAGNESIUM SULFATE INJ 4 GM in DEXTROSE 5% IN WATER 100ML INJ 92 ML IV SCH ×2 (15:00)
[2016-12-09] MEDS: MULTIVITAMIN INJ 10 ML, FOLIC ACID INJ 1 MG in SODIUM CHLORID 0.9% 500 ML INJ 500 ML IV SCH (17:45)
--- NOTE | 2016-12-09 18:48 | HHI.IDPN ---
Subjective Subjective Remarks Pt is nw in ICU In full blown DT Sedated currently Antibiotics Unasyn Allergies: Coded Allergies: *MDRO Multi-Drug Resistant Organism (Verified Adverse Reaction, Unknown, 12/06/16) MRSA (thigh wound) 2004 MRSA PCR (nares) positive - 07/08/15 Objective . Vital Signs Date Time Temp Pulse Resp B/P (MAP) Pulse Ox O2 Delivery O2 Flow Rate FiO2 12/09/16 16:00 97.2 66 17 93/59 (70) 94 12/09/16 15:31 94 Nasal Cannula 2.00 12/09/16 15:00 60 12/09/16 08:00 97 12/09/16 06:50 98.4 93 22 125/94 (104) 93 12/09/16 06:36 97.6 100 18 119/85 (96) 92 12/09/16 06:28 98 21 12/09/16 04:00 98.1 114 20 115/84 (94) 95 12/09/16 00:00 97.3 109 20 125/86 (99) 95 12/08/16 21:40 121 12/08/16 20:00 97.7 120 20 106/76 (86) 94 12/09/16 12/09/16 12/10/16 14:59 22:59 06:59 Intake Total 210 ml 100 ml Balance 210 ml 100 ml IV Total 210 ml 100 ml . Laboratory Tests Test 12/09/16 06:34 Blood Urea Nitrogen 5 MG/DL Creatinine 0.44 MG/DL Random Glucose 84 MG/DL Total Protein 7.5 GM/DL Calcium Level 7.1 MG/DL Magnesium Level 0.9 MG/DL Sodium Level 136 MEQ/L Potassium Level 3.4 MEQ/L Chloride Level 101 MEQ/L Carbon Dioxide Level 25.1 MEQ/L Anion Gap 10 MEQ/L Estimat Glomerular Filtration Rate 206 ML/MIN Protein Corrected Calcium 7.0 MG/DL Microbiology Date/Time Source Procedure Growth Status 12/07/16 18:20 Wound Mouth Fungal Smear - Final NO FUNGAL ELEMENTS SEEN. Resulted 12/07/16 18:20 Wound Mouth Fungal Culture Pending Resulted 12/07/16 18:20 Wound Mouth Acid Fast Stain - Final NO ACID FAST BACILLI SEEN Resulted 12/07/16 18:20 Wound Mouth Mycobacterial Culture Pending Resulted 12/07/16 18:20 Wound Mouth Gram Stain - Final Complete 12/07/16 18:20 Wound Culture - Final Beta-Hemolytic Streptococcus Complete Imaging Last Impressions Facial Bones X-Ray 12/08/16 0000 Signed Impressions: Service Date/Time: Thursday, December 08, 2016 17:06 - CONCLUSION: Extensive postsurgical changes involving the mandible as described above. Baltazar Nieto MD Multiplanar Reconstruction 12/07/16 1349 Signed Impressions: Service Date/Time: Wednesday, December 07, 2016 12:23 - CONCLUSION: 3-D reconstructions reveal anatomic alignment extensive plate and screws.. Cristofer Navas MD FACR Maxillofacial CT 12/06/16 0000 Signed Impressions: Service Date/Time: Tuesday, December 06, 2016 12:23 - CONCLUSION: 1. There has been prior plating of a mandibular fracture. There is a large area of abnormal soft tissue and a septated fluid collection involving the right instantizer operator space with extension into the masseter muscle on the right and up into the right parotid gland. There is rarefaction of bone around the patient's plate. Findings would be consistent with osteomyelitis and abscess. Findings are discussed in detail above. Sage Navas MD Chest X-Ray 12/06/16 0000 Signed Impressions: Service Date/Time: Tuesday, December 06, 2016 12:08 - CONCLUSION: 1. There is a new area of atelectasis or infiltrate at the left lung base. Pneumonia is not excluded. 2. COPD changes. Sage Navas MD Physical Exam CONSTITUTIONAL/GENERAL: sedated TUBES/LINES/DRAINS: SKIN: No jaundice, rashes, or lesions. Ec HEAD: Atraumatic. Normocephalic. Incision R cheek, dressing in palce no fluctuance mildly tender no drainage ENT: Very poor dentition CARDIOVASCULAR: Regular rate and rhythm without murmurs, gallops, or rubs. RESPIRATORY/CHEST: Symmetric, unlabored respirations. Clear to auscultation. Breath sounds equal bilaterally. No wheezes, rales, or rhonchi. GASTROINTESTINAL: Abdomen soft, non-tender, nondistended. No hepato-splenomegaly , or palpable masses. No guarding. Bowel sounds present. MUSCULOSKELETAL: Extremities without clubbing, cyanosis, or edema. NEUROLOGICAL: heavily sedarted PSYCHIATRIC: sedated at the time of exam Assessment & Plan Remarks R mandibular chronic osteomylitis - sp ricardo martin: - clx with beta hemolytic strep - mixed Gram+/gram- org's - path - inflammation chronic and acute of soft tissues ETOH abuse DT Cont unasyn Discussed Condition With Amina Black MD Dec 09, 2016 18:48
[2016-12-09] MEDS: MORPHINE SULFATE 4 MG/ML INJ IV PUSH PRN (20:38)
[2016-12-09] MEDS: DOCUSATE SODIUM 50 MG/SENNA 8.6 MG TAB PO SCH (21:00)
[2016-12-09] MEDS: SODIUM CHLORIDE 0.9% FLUSH 10 ML FLUSH IV FLUSH SCH (21:00)
[2016-12-09] MEDS ORDERED: guaiFENesin E.R. 600 MG TAB PO SCH (21:00)
[2016-12-09] MEDS: guaiFENesin E.R. 600 MG TAB PO SCH (21:00)
[2016-12-09 22:52] LABS: MAGNESIUM 1.6 MG/DL (1.5-2.5); POTASSIUM 3.3 MEQ/L (3.5-5.1)
[2016-12-10] VITALS (14 sets, daily range): BP systolic 93–133; BP diastolic 55–95; PULSE 53–85; RESP 15–22; TEMP 97.6–98.1; O2SAT 95–100
[2016-12-10] MEDS: RESP: ALBUTEROL 2.5 MG/IPRATROPIUM 0.5 MG NEB (SCH) NEB ×5 (00:46→15:54)
[2016-12-10] MEDS: SODIUM CHLOR 0.9% 1000 ML INJ 1,000 ML IV SCH ×3 (01:05→19:00)
[2016-12-10] MEDS: DEXMEDETOMIDINE INJ 200 MCG in SODIUM CHLORIDE 0.9% INJ 50 ML IV PRN ×2 (01:06→02:58)
[2016-12-10] MEDS: AMPICILLIN-SULBACTAM INJ 3 GM in SODIUM CHLORIDE 0.9% INJ 100 ML IV SCH ×4 (01:06→16:51)
[2016-12-10 05:34] LABS: BICARBONATE 26.6 MEQ/L (21.0-32.0); MAGNESIUM 1.4 MG/DL (1.5-2.5); POTASSIUM 3.1 MEQ/L (3.5-5.1)
[2016-12-10 06:28] LABS: CALCIUM-PROTEIN CORRECTED 6.4 MG/DL (8.5-10.1)
[2016-12-10] MEDS: SODIUM CHLORIDE 0.9% FLUSH 10 ML FLUSH IV FLUSH SCH ×2 (09:00→20:09)
[2016-12-10] MEDS: DOCUSATE SODIUM 50 MG/SENNA 8.6 MG TAB PO SCH ×2 (09:00→20:09)
[2016-12-10] MEDS: guaiFENesin E.R. 600 MG TAB PO SCH ×2 (09:00→20:09)
[2016-12-10] MEDS: THIAMINE HCL 100 MG TAB PO SCH (09:00)
[2016-12-10] MEDS ORDERED: DEXMEDETOMIDINE INJ 1,000 MCG in SODIUM CHLOR 0.9% 250 ML INJ 250 ML IV PRN (09:00)
[2016-12-10] MEDS: MAGNESIUM SULFATE 1 GM PREMIX 100 ML IV SCH ×2 (09:18→10:42)
[2016-12-10] MEDS: POTASSIUM CHLOR 20 MEQ PREMIX 100 ML IV SCH ×2 (09:18→10:42)
[2016-12-10] MEDS: MORPHINE SULFATE 4 MG/ML INJ IV PUSH PRN ×2 (10:43→20:09)
[2016-12-10] MEDS ORDERED: CALCIUM CHLORIDE INJ 1 GM in SODIUM CHLORIDE 0.9% INJ 90 ML IV ONE (11:00)
--- NOTE | 2016-12-10 11:39 | HHI.PR ---
Subjective Remarks This is a pleasant 46 y/o Male with complaint of right sided jaw swelling, He has had it for 8 months. Patient had jaw reconstructive surgery June 2015. Was hospitalized June 2016 for an infection in that area but he left AMA. He is a homeless alcoholic who has not followed up with anybody since. Now his right side of his face is swollen up like a baseball. Symptoms moderately severe. Symptoms are exacerbated by his noncompliance. No alleviating factors. He was drinking alcohol earlier today. 12/07: Seen by Maxillofacial plastic surgery manager, he has Right mandible abscess and Osteomyelitis, failure of hardware right angle of the mandible recommended for Surgery today, by Doctor Adan Joseph. 12/08: for procedure later today 12/09: With Diagnosis of Failed hardware right mandible angle region, Abscess right mandible, status post Incision and drainage right mandible abscess, Removal of the failed hardware right mandible, Irrigation and debridement or the right mandible, Biopsy right mandible tissue, closed reduction of the right mandible fracture. During the night he was transferred to Intensive care unit due to Delirium Tremens, he was seen already by his primary Surgeon recommended to advance to full liquid diet as tolerated, Drain removal for tomorrow, cutters with patient at all times discussed with nurse in his bedroom, he was started on Precedex during the night by Hand Brim Ironer, electrolyte derangement on active replacement and following. 12/10: Seen with nurse Miss Modi, continue in Intensive Care Unit with Delirium Tremens, will remove his Precedex and start him on Librium and continue CIWA protocol with the goal to transfer back to General floor as soon as possible, no nausea, vomit or diarrhea. Objective Vital Signs Date Time Temp Pulse Resp B/P (MAP) Pulse Ox O2 Delivery O2 Flow Rate FiO2 12/10/16 08:13 99 Nasal Cannula 2.00 12/10/16 08:00 76 12/10/16 08:00 97.6 76 18 133/95 (108) 95 12/10/16 06:00 58 12/10/16 04:00 56 12/10/16 04:00 97.9 56 15 118/79 (92) 97 12/10/16 02:00 54 12/10/16 00:00 97.9 54 16 122/82 (95) 100 12/10/16 00:00 54 12/09/16 22:00 60 12/09/16 20:51 100 Nasal Cannula 2.00 12/09/16 20:00 97.6 62 18 123/90 (101) 100 12/09/16 20:00 62 12/09/16 16:00 97.2 66 17 93/59 (70) 94 12/09/16 15:31 94 Nasal Cannula 2.00 12/09/16 15:00 60 I/O 12/09/16 12/09/16 12/09/16 12/10/16 12/10/16 12/10/16 07:00 15:00 23:00 07:00 15:00 23:00 Intake Total 1052.2 ml 210 ml 200 ml 1601 ml Output Total 850 ml 2500 ml 1400 ml Balance 202.2 ml 210 ml -2300 ml 201 ml Intake Oral 120 ml IV Total 932.2 ml 210 ml 200 ml 1601 ml Output Urine Total 850 ml 2500 ml 1400 ml # Voids 2 2 # Bowel Movements 0 0 Result Diagram: 12/07/16 1134 12/10/16 0344 Imaging Last Impressions Facial Bones X-Ray 12/08/16 0000 Signed Impressions: Service Date/Time: Thursday, December 08, 2016 17:06 - CONCLUSION: Extensive postsurgical changes involving the mandible as described above. Baltazar Nieto MD Multiplanar Reconstruction 12/07/16 1349 Signed Impressions: Service Date/Time: Wednesday, December 07, 2016 12:23 - CONCLUSION: 3-D reconstructions reveal anatomic alignment extensive plate and screws.. Cristofer Navas MD FACR Maxillofacial CT 12/06/16 0000 Signed Impressions: Service Date/Time: Tuesday, December 06, 2016 12:23 - CONCLUSION: 1. There has been prior plating of a mandibular fracture. There is a large area of abnormal soft tissue and a septated fluid collection involving the right broadcast producer space with extension into the masseter muscle on the right and up into the right parotid gland. There is rarefaction of bone around the patient's plate. Findings would be consistent with osteomyelitis and abscess. Findings are discussed in detail above. Sage Navas MD Chest X-Ray 12/06/16 0000 Signed Impressions: Service Date/Time: Tuesday, December 06, 2016 12:08 - CONCLUSION: 1. There is a new area of atelectasis or infiltrate at the left lung base. Pneumonia is not excluded. 2. COPD changes. Sage Navas MD Procedures With Diagnosis of Failed hardware right mandible angle region, Abscess right mandible, status post Incision and drainage right mandible abscess, Removal of the failed hardware right mandible, Irrigation and debridement or the right mandible, Biopsy right mandible tissue, closed reduction of the right mandible fracture. 12/08/16 Other Results Laboratory Tests Test 12/06/16 11:40 12/06/16 18:21 12/07/16 11:34 12/09/16 07:05 Differential Total Cells Counted 100 Neutrophils % (Manual) 56 % Band Neutrophils % 9 % Lymphocytes % 25 % Monocytes % 5 % Eosinophils % 2 % Basophils % 2 % Neutrophils # (Manual) 4.9 TH/MM3 Metamyelocytes 1 % Toxic Granulation 1+ Prothrombin Time 12.9 SEC Prothromb Time International Ratio 1.2 RATIO Activated Partial Thromboplast Time 32.7 SEC Ethyl Alcohol Level 283 MG/DL Total Bilirubin 0.4 MG/DL Direct Bilirubin 0.3 MG/DL Indirect Bilirubin 0.1 MG/DL Aspartate Amino Transf (AST/SGOT) 243 U/L Alanine Aminotransferase (ALT/SGPT) 86 U/L Alkaline Phosphatase 85 U/L Albumin 2.4 GM/DL Hepatitis A IgM Antibody NEGATIVE Hepatitis B Surface Antigen NEGATIVE Hepatitis B Core IgM Antibody NEGATIVE Hepatitis C Antibody REACTIVE White Blood Count 7.4 TH/MM3 Red Blood Count 3.64 MIL/MM3 Hemoglobin 11.5 GM/DL Hematocrit 33.7 % Mean Corpuscular Volume 92.5 FL Mean Corpuscular Hemoglobin 31.4 PG Mean Corpuscular Hemoglobin Concent 34.0 % Red Cell Distribution Width 13.5 % Platelet Count 63 TH/MM3 Mean Platelet Volume 10.1 FL Neutrophils (%) (Auto) 72.2 % Lymphocytes (%) (Auto) 17.0 % Monocytes (%) (Auto) 7.9 % Eosinophils (%) (Auto) 1.1 % Basophils (%) (Auto) 1.8 % Neutrophils # (Auto) 5.3 TH/MM3 Lymphocytes # (Auto) 1.3 TH/MM3 Monocytes # (Auto) 0.6 TH/MM3 Eosinophils # (Auto) 0.1 TH/MM3 Basophils # (Auto) 0.1 TH/MM3 CBC Comment AUTO DIFF Differential Comment AUTO DIFF CONFIRMED Platelet Estimate LOW Platelet Morphology Comment NORMAL Red Cell Morphology Comment NORMAL Nasal Screen MRSA (PCR) MRSA NOT DETECTED Test 12/09/16 22:05 12/10/16 03:44 Phosphorus Level 2.3 MG/DL Blood Urea Nitrogen 5 MG/DL Creatinine 0.36 MG/DL Random Glucose 111 MG/DL Total Protein 7.9 GM/DL Calcium Level 6.7 MG/DL Magnesium Level 1.4 MG/DL Sodium Level 136 MEQ/L Potassium Level 3.1 MEQ/L Chloride Level 101 MEQ/L Carbon Dioxide Level 26.6 MEQ/L Anion Gap 8 MEQ/L Estimat Glomerular Filtration Rate 259 ML/MIN Protein Corrected Calcium 6.4 MG/DL Objective Remarks GENERAL: Confused but in no apparent distress. SKIN: Skin is Warm and dry. HEAD: Atraumatic. Normocephalic. EYES: Pupils equal and round. No scleral icterus. No injection or drainage. ENT: No nasal bleeding or discharge. Surgical Wound dressed, decreased edema. NECK: Trachea midline. No JVD. CARDIOVASCULAR: Regular rate and rhythm. No murmur appreciated. RESPIRATORY: Decreased breath sounds bilateral, mild expiratory wheezing, no crackles. GASTROINTESTINAL: Abdomen soft, non-tender, nondistended. Hepatic and splenic margins not palpable. MUSCULOSKELETAL: No obvious deformities. No clubbing. No cyanosis. Symmetric edema of the lower legs NEUROLOGICAL: Awake and alert. No obvious cranial nerve deficits. Motor grossly within normal limits. Normal speech. PSYCHIATRIC: Appropriate mood and affect; insight and judgment normal. Medications and IVs Current Medications Medications (Trade) Dose Ordered Sig/Sobeida Route Start Time Stop Time Status Last Admin Sodium Chloride 1,000 ml @ 100 mls/hr Q10H IV 12/06/16 15:00 12/10/16 01:05 (NS Flush) 2 ml UNSCH PRN IV FLUSH 12/06/16 14:45 (NS Flush) 2 ml BID IV FLUSH 12/06/16 21:00 12/08/16 09:00 (Tylenol) 650 mg Q4H PRN PO 12/06/16 14:45 12/06/16 23:20 (Zofran Inj) 4 mg Q6H PRN IVP 12/06/16 14:45 (Narcan Inj) 0.4 mg UNSCH PRN IV PUSH 12/06/16 14:45 (Kelle-Colace) 1 tab BID PO 12/06/16 21:00 12/06/16 19:39 (Milk Of Magnesia Liq) 30 ml Q12H PRN PO 12/06/16 14:45 (Senokot) 17.2 mg Q12H PRN PO 12/06/16 14:45 (Dulcolax Supp) 10 mg DAILY PRN RECTAL 12/06/16 14:45 (Lactulose Liq) 30 ml DAILY PRN PO 12/06/16 14:45 Ampicillin Sodium/ Sulbactam Sodium 3 gm/Sodium Chloride 100 ml @ 200 mls/hr Q6H IV 12/06/16 18:00 12/10/16 10:43 (Duoneb Neb) 1 ampule Q4HR NEB NEB 12/06/16 16:00 12/10/16 11:10 (Mucinex Er) 600 mg BID PO 12/06/16 21:00 12/06/16 19:39 Multivitamins 10 ml/Folic Acid 1 mg/Sodium Chloride 510.2 ml @ 125 mls/hr Q24H IV 12/06/16 17:00 12/11/16 16:59 12/09/16 17:45 (Vitamin B1) 100 mg DAILY PO 12/09/16 09:00 (Romazicon Inj) 0.2 mg Q1M PRN IV PUSH 12/06/16 15:30 (Ativan) 1 mg Q4H PRN PO 12/06/16 15:30 12/06/16 22:00 (Ativan Inj) 1 mg Q4H PRN IV PUSH 12/06/16 15:30 12/08/16 16:06 (Ativan) 2 mg Q2H PRN PO 12/06/16 15:30 12/06/16 19:47 (Ativan Inj) 2 mg Q2H PRN IV PUSH 12/06/16 15:30 12/09/16 00:59 (Ativan Inj) 2 mg Q1H PRN IV PUSH 12/06/16 15:30 (Ativan Inj) 2 mg Q15M PRN IV PUSH 12/06/16 15:30 (Morphine Inj) 2 mg Q3H PRN IV PUSH 12/06/16 19:30 12/10/16 10:43 Potassium Chloride 100 ml @ 50 mls/hr Q2H IV 12/10/16 09:00 12/10/16 12:59 12/10/16 10:42 Sodium Phosphate 15 mmol/Sodium Chloride 155 ml @ 38.75 mls/ hr ONCE ONCE IV 12/10/16 12:00 12/10/16 15:59 Calcium Chloride 1 gm/Sodium Chloride 100 ml @ 100 mls/hr ONCE ONCE IV 12/10/16 11:00 12/10/16 11:59 Dexmedetomidine HCl 1000 mcg/ Sodium Chloride 260 ml @ 3.03 mls/hr TITRATE PRN IV 12/10/16 09:00 A/P Assessment and Plan 1. Osteomyelitis and Abscess of the Right Mandibular area, status post CT scan of Facial Bones with Contrast with Diagnosis There has been prior plating of a mandibular fracture. There is a large area of abnormal soft tissue and a septated fluid collection involving the right broadcast producer space with extension into the masseter muscle on the right and up into the right parotid gland. There is rarefaction of bone around the patient's plate. Findings would be consistent with osteomyelitis and abscess, he left AMA in June and did not wanted to pursue treatment, status post IV fluids, found Thrombocytopenia probable secondary to alcohol abuse and probable Liver pathology, With Diagnosis of Failed hardware right mandible angle region, Abscess right mandible, status post Incision and drainage right mandible abscess, Removal of the failed hardware right mandible, Irrigation and debridement or the right mandible, Biopsy right mandible tissue, closed reduction of the right mandible fracture. on Unasyn. 2. Alcohol abuse now in active Delirium Tremens in Intensive Care unit, on Precedex and CIWA protocol. discontinued Precedex. 3. Severe electrolyte derangement on active replacement and following. 4. COPD stable on Bronchodilator, Mucolytic and Incentive spirometry 5. Thrombocytopenia/Anemia follow CBC in am tomorrow. 6. LFTs elevated in the past asked for hepatitis profile 7. Polysubstance abuse in the past drug screen now 8. Lower extremity lesions wound care to follow. 9. Tobacco dependence strongly recommended to stop smoking DVT prophylaxis with SCDs Code Status Full Code. Discussed Condition With Patient and nurse in the room. Discharge Planning Once cleared by specialists. Jose Clayton MD Dec 10, 2016 11:39 am
[2016-12-10] MEDS ORDERED: SODIUM PHOSPHATE INJ 15 MMOL in SODIUM CHLORIDE 0.9% INJ 150 ML IV ONE (12:00)
[2016-12-10] MEDS: chlordiazePOXIDE 25 MG CAP PO PRN ×2 (15:33→23:19)
--- NOTE | 2016-12-10 16:29 | HHI.PR ---
Subjective Remarks POD s/p removal of failed hardware right mandible I & D right mandible abscess, biopsy right mandible soft tissue pt seen and examined aaox3, nad nurse at bedside., tolerating liquid diet Objective Vital Signs Date Time Temp Pulse Resp B/P (MAP) Pulse Ox O2 Delivery O2 Flow Rate FiO2 12/10/16 14:00 80 12/10/16 12:00 58 12/10/16 12:00 53 12/10/16 12:00 97.7 53 21 118/75 (89) 95 12/10/16 10:00 80 12/10/16 08:13 99 Nasal Cannula 2.00 12/10/16 08:00 76 12/10/16 08:00 97.6 76 18 133/95 (108) 95 12/10/16 06:00 58 12/10/16 04:00 56 12/10/16 04:00 97.9 56 15 118/79 (92) 97 12/10/16 02:00 54 12/10/16 00:00 97.9 54 16 122/82 (95) 100 12/10/16 00:00 54 12/09/16 22:00 60 12/09/16 20:51 100 Nasal Cannula 2.00 12/09/16 20:00 97.6 62 18 123/90 (101) 100 12/09/16 20:00 62 I/O 12/09/16 12/09/16 12/09/16 12/10/16 12/10/16 12/10/16 06:59 14:59 22:59 06:59 14:59 22:59 Intake Total 1052.2 ml 210 ml 200 ml 1601 ml 600 ml Output Total 850 ml 2500 ml 1400 ml Balance 202.2 ml 210 ml -2300 ml 201 ml 600 ml Intake Oral 120 ml IV Total 932.2 ml 210 ml 200 ml 1601 ml 600 ml Output Urine Total 850 ml 2500 ml 1400 ml # Voids 2 2 # Bowel Movements 0 0 Result Diagram: 12/07/16 1134 12/10/16 0344 Procedures With Diagnosis of Failed hardware right mandible angle region, Abscess right mandible, status post Incision and drainage right mandible abscess, Removal of the failed hardware right mandible, Irrigation and debridement or the right mandible, Biopsy right mandible tissue, closed reduction of the right mandible fracture. 12/08/16 Objective Remarks right facial edema decreased/softer, no erythema/no tenderness facial/mandible drains in place hemostatic/no pus noted - dressing in place bite in occlusion/ arch bars and wires in place wound margins well approximated sutures intact tissues pink and well perfused wire cutters noted at bedside Assessment and Plan Assessment and Plan POD 3 s/p removal of failed hardware right mandible I & D right mandible abscess, biopsy right mandible soft tissue advance to full liquid diet as tolerated in treatment for D.T. GRAM STAIN Final 12/08/16 RARE EPITHELIAL CELL MANY WBC'S RARE GRAM POSITIVE COCCI IN PAIRS FEW PLEOMORPHIC GRAM POSITIVE RODS wOUND CULTURE Final 12/10/16 RARE GROWTH STREP NOT A,B D path RIGHT MANDIBLE, BIOPSY: ACUTELY AND CHRONICALLY INFLAMED FIBROUS TISSUE. NO BONE IDENTIFIED. oms following drains removed wire cutters with pt at all times Adan Joseph DMD Dec 10, 2016 16:29
[2016-12-10] MEDS: MULTIVITAMIN INJ 10 ML, FOLIC ACID INJ 1 MG in SODIUM CHLORID 0.9% 500 ML INJ 500 ML IV SCH (16:51)
[2016-12-10 16:54] LABS: MAGNESIUM 1.9 MG/DL (1.5-2.5); POTASSIUM 3.5 MEQ/L (3.5-5.1)
[2016-12-10] MEDS: LORazepam 2 MG/ML VIAL IV PUSH PRN (22:04)
[2016-12-11] VITALS (12 sets, daily range): BP systolic 11–134; BP diastolic 67–83; PULSE 63–104; RESP 16–20; TEMP 97.6–99.3; O2SAT 93–100
[2016-12-11] MEDS: AMPICILLIN-SULBACTAM INJ 3 GM in SODIUM CHLORIDE 0.9% INJ 100 ML IV SCH ×4 (00:27→18:35)
[2016-12-11] MEDS: MORPHINE SULFATE 4 MG/ML INJ IV PUSH PRN ×3 (03:23→21:38)
[2016-12-11] MEDS: SODIUM CHLOR 0.9% 1000 ML INJ 1,000 ML IV SCH ×3 (05:00→15:00)
[2016-12-11] MEDS: LORazepam 2 MG/ML VIAL IV PUSH PRN (05:27)
[2016-12-11 05:54] LABS: AUTOMATED NEUTROPHIL # 2.6 TH/MM3 (1.8-7.7); BASOPHIL # 0.1 TH/MM3 (0-0.2); BASOPHIL % 1.3 % (0.0-2.0); EOSINOPHIL # 0.2 TH/MM3 (0-0.4); EOSINOPHIL % 3.8 % (0.0-4.0); HEMATOCRIT 31.1 % (39.0-51.0); LYMPH % 28.3 % (9.0-44.0); LYMPHOCYTE # 1.3 TH/MM3 (1.0-4.8); MEAN CELL VOLUME 93.9 FL (80.0-100.0); MEAN CORPUSCULAR HEMOGLOBIN 31.2 PG (27.0-34.0); MEAN CORPUSCULAR HGB CONC 33.2 % (32.0-36.0); MONO % 9.3 % (0.0-8.0); NEUT % 57.3 % (16.0-70.0); PLATELET COUNT 51 TH/MM3 (150-450); RED BLOOD COUNT 3.31 MIL/MM3 (4.50-5.90); RED CELL DISTRIBUTION WIDTH 13.5 % (11.6-17.2); WHITE BLOOD COUNT 4.5 TH/MM3 (4.0-11.0)
[2016-12-11 05:55] LABS: HEMO FLAGS AUTO DIFF
[2016-12-11 07:33] LABS: BICARBONATE 23.4 MEQ/L (21.0-32.0); MAGNESIUM 1.3 MG/DL (1.5-2.5); POTASSIUM 3.3 MEQ/L (3.5-5.1)
[2016-12-11 08:23] LABS: SCAN/DIFF AUTO DIFF CONFIRMED
[2016-12-11] MEDS: chlordiazePOXIDE 25 MG CAP PO PRN ×2 (08:36→14:39)
[2016-12-11] MEDS: THIAMINE HCL 100 MG TAB PO SCH (09:00)
--- NOTE | 2016-12-11 10:53 | HHI.PR ---
Subjective Remarks This is a pleasant 46 y/o Male with complaint of right sided jaw swelling, He has had it for 8 months. Patient had jaw reconstructive surgery June 2015. Was hospitalized June 2016 for an infection in that area but he left AMA. He is a homeless alcoholic who has not followed up with anybody since. Now his right side of his face is swollen up like a baseball. Symptoms moderately severe. Symptoms are exacerbated by his noncompliance. No alleviating factors. He was drinking alcohol earlier today. 12/07: Seen by Maxillofacial surgery manager, he has Right mandible abscess and Osteomyelitis, failure of hardware right angle of the mandible recommended for Surgery today, by Doctor Adan Joseph. 12/08: for procedure later today 12/09: With Diagnosis of Failed hardware right mandible angle region, Abscess right mandible, status post Incision and drainage right mandible abscess, Removal of the failed hardware right mandible, Irrigation and debridement or the right mandible, Biopsy right mandible tissue, closed reduction of the right mandible fracture. During the night he was transferred to Intensive care unit due to Delirium Tremens, he was seen already by his primary Surgeon recommended to advance to full liquid diet as tolerated, Drain removal for tomorrow, cutters with patient at all times discussed with nurse in his bedroom, he was started on Precedex during the night by Crystal Attacher, electrolyte derangement on active replacement and following. 12/10: Seen with nurse Miss Modi, continue in Intensive Care Unit with Delirium Tremens, will remove his Precedex and start him on Librium and continue CIWA protocol with the goal to transfer back to General floor as soon as possible. 12/11: Stable in his bedroom, seen in the presence of nurse Miss Modi, improving his alertness, now oriented in place and person, will transfer to Med Surg and follow, today again Electrolyte derangement replaced and following drainages removed yesterday. Objective Vital Signs Date Time Temp Pulse Resp B/P (MAP) Pulse Ox O2 Delivery O2 Flow Rate FiO2 12/11/16 06:00 71 12/11/16 04:00 97.8 65 16 11/72 (52) 100 12/11/16 04:00 72 12/11/16 02:00 63 12/11/16 00:00 97.6 72 18 102/69 (80) 100 12/11/16 00:00 72 12/10/16 22:00 76 12/10/16 20:12 96 21 12/10/16 20:00 85 12/10/16 20:00 98.0 84 19 93/61 (72) 100 12/10/16 18:00 84 12/10/16 16:00 98.1 81 22 94/55 (68) 96 12/10/16 16:00 81 12/10/16 14:00 80 12/10/16 12:00 58 12/10/16 12:00 53 12/10/16 12:00 97.7 53 21 118/75 (89) 95 I/O 12/10/16 12/10/16 12/10/16 12/11/16 12/11/16 12/11/16 07:00 15:00 23:00 07:00 15:00 23:00 Intake Total 1601 ml 600 ml 625 ml 810 ml Output Total 1400 ml 2450 ml 1000 ml Balance 201 ml 600 ml -1825 ml -190 ml Intake Oral 625 ml 810 ml IV Total 1601 ml 600 ml Output Urine Total 1400 ml 2450 ml 1000 ml # Voids 2 # Bowel Movements 0 0 Result Diagram: 12/11/16 0415 12/11/16 0415 Imaging Last Impressions Facial Bones X-Ray 12/08/16 Signed Impressions: Service Date/Time: Thursday, December 08, 2016 17:06 - CONCLUSION: Extensive postsurgical changes involving the mandible as described above. Baltazar Nieto MD Multiplanar Reconstruction 12/07/16 1349 Signed Impressions: Service Date/Time: Wednesday, December 07, 2016 12:23 - CONCLUSION: 3-D reconstructions reveal anatomic alignment extensive plate and screws.. Cristofer Navas MD FACR Maxillofacial CT 12/06/16 0000 Signed Impressions: Service Date/Time: Tuesday, December 06, 2016 12:23 - CONCLUSION: 1. There has been prior plating of a mandibular fracture. There is a large area of abnormal soft tissue and a septated fluid collection involving the right auto roller space with extension into the masseter muscle on the right and up into the right parotid gland. There is rarefaction of bone around the patient's plate. Findings would be consistent with osteomyelitis and abscess. Findings are discussed in detail above. Sage Navas MD Chest X-Ray 12/06/16 0000 Signed Impressions: Service Date/Time: Tuesday, December 06, 2016 12:08 - CONCLUSION: 1. There is a new area of atelectasis or infiltrate at the left lung base. Pneumonia is not excluded. 2. COPD changes. Sage Navas MD Procedures With Diagnosis of Failed hardware right mandible angle region, Abscess right mandible, status post Incision and drainage right mandible abscess, Removal of the failed hardware right mandible, Irrigation and debridement or the right mandible, Biopsy right mandible tissue, closed reduction of the right mandible fracture. 12/08/16 Other Results Laboratory Tests Test 12/06/16 11:40 12/06/16 18:21 12/07/16 11:34 12/09/16 07:05 Differential Total Cells Counted 100 Neutrophils % (Manual) 56 % Band Neutrophils % 9 % Lymphocytes % 25 % Monocytes % 5 % Eosinophils % 2 % Basophils % 2 % Neutrophils # (Manual) 4.9 TH/MM3 Metamyelocytes 1 % Toxic Granulation 1+ Prothrombin Time 12.9 SEC Prothromb Time International Ratio 1.2 RATIO Activated Partial Thromboplast Time 32.7 SEC Ethyl Alcohol Level 283 MG/DL Total Bilirubin 0.4 MG/DL Direct Bilirubin 0.3 MG/DL Indirect Bilirubin 0.1 MG/DL Aspartate Amino Transf (AST/SGOT) 243 U/L Alanine Aminotransferase (ALT/SGPT) 86 U/L Alkaline Phosphatase 85 U/L Albumin 2.4 GM/DL Hepatitis A IgM Antibody NEGATIVE Hepatitis B Surface Antigen NEGATIVE Hepatitis B Core IgM Antibody NEGATIVE Hepatitis C Antibody REACTIVE Platelet Estimate LOW Platelet Morphology Comment NORMAL Red Cell Morphology Comment NORMAL Nasal Screen MRSA (PCR) MRSA NOT DETECTED Test 12/09/16 22:05 12/10/16 03:44 12/11/16 04:15 Phosphorus Level 2.3 MG/DL Protein Corrected Calcium 6.4 MG/DL Blood Urea Nitrogen 5 MG/DL 4 MG/DL Creatinine 0.36 MG/DL 0.42 MG/DL Random Glucose 111 MG/DL 91 MG/DL Total Protein 7.9 GM/DL Calcium Level 6.7 MG/DL 7.6 MG/DL Magnesium Level 1.4 MG/DL 1.3 MG/DL Sodium Level 136 MEQ/L 134 MEQ/L Potassium Level 3.1 MEQ/L 3.3 MEQ/L Chloride Level 101 MEQ/L 101 MEQ/L Carbon Dioxide Level 26.6 MEQ/L 23.4 MEQ/L White Blood Count 4.5 TH/MM3 Red Blood Count 3.31 MIL/MM3 Hemoglobin 10.3 GM/DL Hematocrit 31.1 % Mean Corpuscular Volume 93.9 FL Mean Corpuscular Hemoglobin 31.2 PG Mean Corpuscular Hemoglobin Concent 33.2 % Red Cell Distribution Width 13.5 % Platelet Count 51 TH/MM3 Mean Platelet Volume 9.9 FL Neutrophils (%) (Auto) 57.3 % Lymphocytes (%) (Auto) 28.3 % Monocytes (%) (Auto) 9.3 % Eosinophils (%) (Auto) 3.8 % Basophils (%) (Auto) 1.3 % Neutrophils # (Auto) 2.6 TH/MM3 Lymphocytes # (Auto) 1.3 TH/MM3 Monocytes # (Auto) 0.4 TH/MM3 Eosinophils # (Auto) 0.2 TH/MM3 Basophils # (Auto) 0.1 TH/MM3 CBC Comment AUTO DIFF Differential Comment AUTO DIFF CONFIRMED Anion Gap 10 MEQ/L Estimat Glomerular Filtration Rate 217 ML/MIN Objective Remarks GENERAL: Alert and oriented in Place and Person. SKIN: Skin is Warm and dry. HEAD: Atraumatic. Normocephalic. EYES: Pupils equal and round. No scleral icterus. No injection or drainage. ENT: No nasal bleeding or discharge. Surgical Wound dressed, decreased edema. NECK: Trachea midline. No JVD. CARDIOVASCULAR: Regular rate and rhythm. No murmur appreciated. RESPIRATORY: Decreased breath sounds bilateral, No wheezing or crackles. GASTROINTESTINAL: Abdomen soft, non-tender, nondistended. Hepatic and splenic margins not palpable. MUSCULOSKELETAL: No obvious deformities. No clubbing. No cyanosis. Symmetric edema of the lower legs NEUROLOGICAL: Awake and alert. No obvious cranial nerve deficits. Motor grossly within normal limits. Normal speech. PSYCHIATRIC: Appropriate mood and affect; insight and judgment normal. Medications and IVs Current Medications Medications (Trade) Dose Ordered Sig/Sobeida Route Start Time Stop Time Status Last Admin Sodium Chloride 1,000 ml @ 100 mls/hr Q10H IV 12/06/16 15:00 12/11/16 06:26 (NS Flush) 2 ml UNSCH PRN IV FLUSH 12/06/16 14:45 (NS Flush) 2 ml BID IV FLUSH 12/06/16 21:00 12/10/16 20:09 (Tylenol) 650 mg Q4H PRN PO 12/06/16 14:45 12/06/16 23:20 (Zofran Inj) 4 mg Q6H PRN IVP 12/06/16 14:45 (Narcan Inj) 0.4 mg UNSCH PRN IV PUSH 12/06/16 14:45 (Kelle-Colace) 1 tab BID PO 12/06/16 21:00 12/10/16 20:09 (Milk Of Magnesia Liq) 30 ml Q12H PRN PO 12/06/16 14:45 (Senokot) 17.2 mg Q12H PRN PO 12/06/16 14:45 (Dulcolax Supp) 10 mg DAILY PRN RECTAL 12/06/16 14:45 (Lactulose Liq) 30 ml DAILY PRN PO 12/06/16 14:45 Ampicillin Sodium/ Sulbactam Sodium 3 gm/Sodium Chloride 100 ml @ 200 mls/hr Q6H IV 12/06/16 18:00 12/11/16 05:25 (Mucinex Er) 600 mg BID PO 12/06/16 21:00 12/10/16 20:09 Multivitamins 10 ml/Folic Acid 1 mg/Sodium Chloride 510.2 ml @ 125 mls/hr Q24H IV 12/06/16 17:00 12/11/16 16:59 12/10/16 16:51 (Vitamin B1) 100 mg DAILY PO 12/09/16 09:00 (Romazicon Inj) 0.2 mg Q1M PRN IV PUSH 12/06/16 15:30 (Ativan) 1 mg Q4H PRN PO 12/06/16 15:30 12/06/16 22:00 (Ativan Inj) 1 mg Q4H PRN IV PUSH 12/06/16 15:30 12/08/16 16:06 (Ativan) 2 mg Q2H PRN PO 12/06/16 15:30 12/06/16 19:47 (Ativan Inj) 2 mg Q2H PRN IV PUSH 12/06/16 15:30 12/11/16 05:27 (Ativan Inj) 2 mg Q1H PRN IV PUSH 12/06/16 15:30 (Ativan Inj) 2 mg Q15M PRN IV PUSH 12/06/16 15:30 (Morphine Inj) 2 mg Q3H PRN IV PUSH 12/06/16 19:30 12/11/16 03:23 (Librium) 25 mg TID PRN PO 12/10/16 14:00 12/11/16 08:36 A/P Assessment and Plan 1. Osteomyelitis and Abscess of the Right Mandibular area, status post CT scan of Facial Bones with Contrast with Diagnosis There has been prior plating of a mandibular fracture. There is a large area of abnormal soft tissue and a septated fluid collection involving the right auto roller space with extension into the masseter muscle on the right and up into the right parotid gland. There is rarefaction of bone around the patient's plate. Findings would be consistent with osteomyelitis and abscess, he left AMA in June and did not wanted to pursue treatment, status post IV fluids, found Thrombocytopenia probable secondary to alcohol abuse and probable Liver pathology, With Diagnosis of Failed hardware right mandible angle region, Abscess right mandible, status post Incision and drainage right mandible abscess, Removal of the failed hardware right mandible, Irrigation and debridement or the right mandible, Biopsy right mandible tissue, closed reduction of the right mandible fracture. on Unasyn. drainages removed yesterday improving condition. 2. Alcohol abuse now in active Delirium Tremens in Intensive Care unit, on Precedex and CIWA protocol. discontinued Precedex. Improving okay to transfer to Medical Surgical Floor. 3. Severe electrolyte derangement on active replacement and following. 4. COPD stable on Bronchodilator, Mucolytic and Incentive spirometry 5. Thrombocytopenia/Anemia follow CBC in am tomorrow. 6. LFTs elevated in the past asked for hepatitis profile 7. Polysubstance abuse in the past drug screen now 8. Lower extremity lesions wound care to follow. 9. Tobacco dependence strongly recommended to stop smoking DVT prophylaxis with SCDs Code Status Full Code. Discussed Condition With Patient and nurse Miss Modi in the room. Discharge Planning Once cleared by specialists. Jose Clayton MD Dec 11, 2016 10:53
[2016-12-11] MEDS: MAGNESIUM SULFATE 1 GM PREMIX 100 ML IV SCH ×2 (11:48→14:03)
[2016-12-11] MEDS: POTASSIUM CHLOR 20 MEQ PREMIX 100 ML IV SCH ×2 (11:48→14:03)
[2016-12-11] MEDS: MAGNESIUM OXIDE 400 MG TAB PO SCH ×2 (14:40→21:37)
--- NOTE | 2016-12-11 16:32 | HHI.IDPN ---
Subjective Subjective Remarks awake alert afebrile + cough, productive Antibiotics Unasyn Allergies: Coded Allergies: *MDRO Multi-Drug Resistant Organism (Verified Adverse Reaction, Unknown, 12/06/16) MRSA (thigh wound) 2004 MRSA PCR (nares) positive - 07/08/15 Objective . Vital Signs Date Time Temp Pulse Resp B/P (MAP) Pulse Ox O2 Delivery O2 Flow Rate FiO2 12/11/16 14:00 104 12/11/16 12:00 99.3 84 18 118/83 (95) 93 12/11/16 12:00 84 12/11/16 10:00 82 12/11/16 08:00 98.6 82 18 134/80 (98) 100 12/11/16 08:00 82 12/11/16 06:00 71 12/11/16 04:00 97.8 65 16 11/72 (52) 100 12/11/16 04:00 72 12/11/16 02:00 63 12/11/16 00:00 97.6 72 18 102/69 (80) 100 12/11/16 00:00 72 12/10/16 22:00 76 12/10/16 20:12 96 21 12/10/16 20:00 85 12/10/16 20:00 98.0 84 19 93/61 (72) 100 12/10/16 18:00 84 . Laboratory Tests Test 12/11/16 04:15 White Blood Count 4.5 TH/MM3 Red Blood Count 3.31 MIL/MM3 Hemoglobin 10.3 GM/DL Hematocrit 31.1 % Mean Corpuscular Volume 93.9 FL Mean Corpuscular Hemoglobin 31.2 PG Mean Corpuscular Hemoglobin Concent 33.2 % Red Cell Distribution Width 13.5 % Platelet Count 51 TH/MM3 Mean Platelet Volume 9.9 FL Neutrophils (%) (Auto) 57.3 % Lymphocytes (%) (Auto) 28.3 % Monocytes (%) (Auto) 9.3 % Eosinophils (%) (Auto) 3.8 % Basophils (%) (Auto) 1.3 % Neutrophils # (Auto) 2.6 TH/MM3 Lymphocytes # (Auto) 1.3 TH/MM3 Monocytes # (Auto) 0.4 TH/MM3 Eosinophils # (Auto) 0.2 TH/MM3 Basophils # (Auto) 0.1 TH/MM3 CBC Comment AUTO DIFF Differential Comment AUTO DIFF CONFIRMED Laboratory Tests Test 12/09/16 22:05 12/10/16 03:44 12/10/16 16:21 12/11/16 04:15 Potassium Level 3.3 MEQ/L 3.1 MEQ/L 3.5 MEQ/L 3.3 MEQ/L Phosphorus Level 2.3 MG/DL Magnesium Level 1.6 MG/DL 1.4 MG/DL 1.9 MG/DL 1.3 MG/DL Blood Urea Nitrogen 5 MG/DL 4 MG/DL Creatinine 0.36 MG/DL 0.42 MG/DL Random Glucose 111 MG/DL 91 MG/DL Total Protein 7.9 GM/DL Calcium Level 6.7 MG/DL 7.6 MG/DL Sodium Level 136 MEQ/L 134 MEQ/L Chloride Level 101 MEQ/L 101 MEQ/L Carbon Dioxide Level 26.6 MEQ/L 23.4 MEQ/L Anion Gap 8 MEQ/L 10 MEQ/L Estimat Glomerular Filtration Rate 259 ML/MIN 217 ML/MIN Protein Corrected Calcium 6.4 MG/DL Imaging Last Impressions Facial Bones X-Ray 12/08/16 0000 Signed Impressions: Service Date/Time: Thursday, December 08, 2016 17:06 - CONCLUSION: Extensive postsurgical changes involving the mandible as described above. Baltazar Nieto MD Multiplanar Reconstruction 12/07/16 1349 Signed Impressions: Service Date/Time: Wednesday, December 07, 2016 12:23 - CONCLUSION: 3-D reconstructions reveal anatomic alignment extensive plate and screws.. Cristofer Navas MD FACR Maxillofacial CT 12/06/16 0000 Signed Impressions: Service Date/Time: Tuesday, December 06, 2016 12:23 - CONCLUSION: 1. There has been prior plating of a mandibular fracture. There is a large area of abnormal soft tissue and a septated fluid collection involving the right transfer table operator space with extension into the masseter muscle on the right and up into the right parotid gland. There is rarefaction of bone around the patient's plate. Findings would be consistent with osteomyelitis and abscess. Findings are discussed in detail above. Sage Navas MD Chest X-Ray 12/06/16 0000 Signed Impressions: Service Date/Time: Tuesday, December 06, 2016 12:08 - CONCLUSION: 1. There is a new area of atelectasis or infiltrate at the left lung base. Pneumonia is not excluded. 2. COPD changes. Sage Navas MD Physical Exam CONSTITUTIONAL/GENERAL: sedated TUBES/LINES/DRAINS: SKIN: No jaundice, rashes, or lesions. Ec HEAD: Atraumatic. Normocephalic. Incision R cheek, dressing in palce no fluctuance mildly tender no drainage ENT: Very poor dentition CARDIOVASCULAR: Regular rate and rhythm without murmurs, gallops, or rubs. RESPIRATORY/CHEST: Symmetric, unlabored respirations. Clear to auscultation. Breath sounds equal bilaterally. No wheezes, rales, or rhonchi. GASTROINTESTINAL: Abdomen soft, non-tender, nondistended. No hepato-splenomegaly , or palpable masses. No guarding. Bowel sounds present. MUSCULOSKELETAL: Extremities without clubbing, cyanosis, or edema. NEUROLOGICAL: awake alert PSYCHIATRIC: sedated at the time of exam Assessment & Plan Remarks R mandibular chronic osteomylitis - sp ricardo yday: - clx with beta hemolytic strep - mixed Gram+/gram- org's - path - inflammation chronic and acute of soft tissues ETOH abuse DT Cont unasyn eventually plan to transition to po medx Discussed Condition With Amina Black MD Dec 11, 2016 16:32
[2016-12-11] MEDS: DOCUSATE SODIUM 50 MG/SENNA 8.6 MG TAB PO SCH (21:00)
[2016-12-11] MEDS: guaiFENesin E.R. 600 MG TAB PO SCH (21:36)
[2016-12-11] MEDS: SODIUM CHLORIDE 0.9% FLUSH 10 ML FLUSH IV FLUSH SCH (21:37)
[2016-12-12] VITALS: BP 112/76; PULSE 104; RESP 17; TEMP 98; O2SAT 95
[2016-12-12] MEDS: MORPHINE SULFATE 4 MG/ML INJ IV PUSH PRN ×6 (00:41→22:14)
[2016-12-12] MEDS: LORazepam 2 MG/ML VIAL IV PUSH PRN ×6 (00:42→23:35)
[2016-12-12] MEDS: AMPICILLIN-SULBACTAM INJ 3 GM in SODIUM CHLORIDE 0.9% INJ 100 ML IV SCH ×4 (00:42→22:26)
[2016-12-12] MEDS: SODIUM CHLOR 0.9% 1000 ML INJ 1,000 ML IV SCH ×3 (00:55→21:00)
[2016-12-12 04:00] VITALS: BP 127/84; PULSE 105; RESP 17; TEMP 96.1; O2SAT 96
[2016-12-12 08:00] VITALS: BP 124/82; PULSE 128; RESP 18; TEMP 97.1; O2SAT 92
[2016-12-12] MEDS: SODIUM CHLORIDE 0.9% FLUSH 10 ML FLUSH IV FLUSH SCH ×2 (09:00→21:00)
[2016-12-12] MEDS: THIAMINE HCL 100 MG TAB PO SCH (09:00)
--- NOTE | 2016-12-12 09:18 | HHI.PR ---
Subjective Remarks This is a pleasant 46 y/o Male with complaint of right sided jaw swelling, He has had it for 8 months. Patient had jaw reconstructive surgery June 2015. Was hospitalized June 2016 for an infection in that area but he left AMA. He is a homeless alcoholic who has not followed up with anybody since. Now his right side of his face is swollen up like a baseball. Symptoms moderately severe. Symptoms are exacerbated by his noncompliance. No alleviating factors. He was drinking alcohol earlier today. 12/07: Seen by Maxillofacial accounting support specialist, he has Right mandible abscess and Osteomyelitis, failure of hardware right angle of the mandible recommended for Surgery today, by Doctor Adan Joseph. 12/08: for procedure later today 12/09: With Diagnosis of Failed hardware right mandible angle region, Abscess right mandible, status post Incision and drainage right mandible abscess, Removal of the failed hardware right mandible, Irrigation and debridement or the right mandible, Biopsy right mandible tissue, closed reduction of the right mandible fracture. During the night he was transferred to Intensive care unit due to Delirium Tremens, he was seen already by his primary Surgeon recommended to advance to full liquid diet as tolerated, Drain removal for tomorrow, cutters with patient at all times discussed with nurse in his bedroom, he was started on Precedex during the night by Injection Mold Tooling Technician, electrolyte derangement on active replacement and following. 12/10: Seen with nurse Miss Modi, continue in Intensive Care Unit with Delirium Tremens, will remove his Precedex and start him on Librium and continue CIWA protocol with the goal to transfer back to General floor as soon as possible. 12/11: Stable in his bedroom, seen in the presence of nurse Miss Modi, improving his alertness, now oriented in place and person, will transfer to Med Surg and follow, today again Electrolyte derangement replaced and following drainages removed yesterday. 12/12: Seen in his bedroom and discussed with nurse Miss Kwong continue present care, he had six Bowel movements was discussed with nurse to continue to get at least three bowel movements daily, but this BMs for today were without Lactulose, will get C Diff test and follow results. also laboratory performed and awaiting for results. He wants to be releases now, he is unstable, still disoriented, not able to take this decision himself will follow clinically but improving his DTs. Objective Vital Signs Date Time Temp Pulse Resp B/P (MAP) Pulse Ox O2 Delivery O2 Flow Rate FiO2 12/12/16 08:00 97.1 128 18 124/82 (96) 92 12/12/16 04:00 96.1 105 17 127/84 (98) 96 12/12/16 00:00 98.0 104 17 112/76 (88) 95 12/11/16 22:00 91 12/11/16 20:00 88 12/11/16 20:00 98.8 98 20 108/67 (81) 96 12/11/16 18:00 93 12/11/16 16:00 99.0 93 19 105/81 (89) 97 12/11/16 16:00 104 12/11/16 14:00 104 12/11/16 12:00 99.3 84 18 118/83 (95) 93 12/11/16 12:00 84 12/11/16 10:00 82 I/O 12/11/16 12/11/16 12/11/16 12/12/16 12/12/16 12/12/16 07:00 15:00 23:00 07:00 15:00 23:00 Intake Total 810 ml 300 ml 1200 ml 666 ml Output Total 1000 ml 2650 ml 900 ml Balance -190 ml 300 ml -1450 ml -234 ml Intake Oral 810 ml 1000 ml 240 ml IV Total 300 ml 200 ml 426 ml Output Urine Total 1000 ml 2650 ml 900 ml # Bowel Movements 0 6 Result Diagram: 12/11/16 0415 12/11/16 0415 Imaging Last Impressions Facial Bones X-Ray 12/08/16 0000 Signed Impressions: Service Date/Time: Thursday, December 08, 2016 17:06 - CONCLUSION: Extensive postsurgical changes involving the mandible as described above. Baltazar Nieto MD Multiplanar Reconstruction 12/07/16 1349 Signed Impressions: Service Date/Time: Wednesday, December 07, 2016 12:23 - CONCLUSION: 3-D reconstructions reveal anatomic alignment extensive plate and screws.. Cristofer Navas MD FACR Maxillofacial CT 12/06/16 0000 Signed Impressions: Service Date/Time: Tuesday, December 06, 2016 12:23 - CONCLUSION: 1. There has been prior plating of a mandibular fracture. There is a large area of abnormal soft tissue and a septated fluid collection involving the right property inspector space with extension into the masseter muscle on the right and up into the right parotid gland. There is rarefaction of bone around the patient's plate. Findings would be consistent with osteomyelitis and abscess. Findings are discussed in detail above. Sage Navas MD Chest X-Ray 12/06/16 0000 Signed Impressions: Service Date/Time: Tuesday, December 06, 2016 12:08 - CONCLUSION: 1. There is a new area of atelectasis or infiltrate at the left lung base. Pneumonia is not excluded. 2. COPD changes. Sage Navas MD Procedures With Diagnosis of Failed hardware right mandible angle region, Abscess right mandible, status post Incision and drainage right mandible abscess, Removal of the failed hardware right mandible, Irrigation and debridement or the right mandible, Biopsy right mandible tissue, closed reduction of the right mandible fracture. 12/08/16 Other Results Laboratory Tests Test 12/06/16 11:40 12/06/16 18:21 12/07/16 11:34 12/09/16 07:05 Differential Total Cells Counted 100 Neutrophils % (Manual) 56 % Band Neutrophils % 9 % Lymphocytes % 25 % Monocytes % 5 % Eosinophils % 2 % Basophils % 2 % Neutrophils # (Manual) 4.9 TH/MM3 Metamyelocytes 1 % Toxic Granulation 1+ Prothrombin Time 12.9 SEC Prothromb Time International Ratio 1.2 RATIO Activated Partial Thromboplast Time 32.7 SEC Ethyl Alcohol Level 283 MG/DL Total Bilirubin 0.4 MG/DL Direct Bilirubin 0.3 MG/DL Indirect Bilirubin 0.1 MG/DL Aspartate Amino Transf (AST/SGOT) 243 U/L Alanine Aminotransferase (ALT/SGPT) 86 U/L Alkaline Phosphatase 85 U/L Albumin 2.4 GM/DL Hepatitis A IgM Antibody NEGATIVE Hepatitis B Surface Antigen NEGATIVE Hepatitis B Core IgM Antibody NEGATIVE Hepatitis C Antibody REACTIVE Platelet Estimate LOW Platelet Morphology Comment NORMAL Red Cell Morphology Comment NORMAL Nasal Screen MRSA (PCR) MRSA NOT DETECTED Test 12/09/16 22:05 12/10/16 03:44 12/11/16 04:15 12/12/16 08:30 Phosphorus Level 2.3 MG/DL Protein Corrected Calcium 6.4 MG/DL Blood Urea Nitrogen 5 MG/DL Creatinine 0.36 MG/DL Random Glucose 111 MG/DL Total Protein 7.9 GM/DL Calcium Level 6.7 MG/DL Magnesium Level 1.4 MG/DL Sodium Level 136 MEQ/L Potassium Level 3.1 MEQ/L Chloride Level 101 MEQ/L Carbon Dioxide Level 26.6 MEQ/L White Blood Count 4.5 TH/MM3 Red Blood Count 3.31 MIL/MM3 Hemoglobin 10.3 GM/DL Hematocrit 31.1 % Mean Corpuscular Volume 93.9 FL Mean Corpuscular Hemoglobin 31.2 PG Mean Corpuscular Hemoglobin Concent 33.2 % Red Cell Distribution Width 13.5 % Platelet Count 51 TH/MM3 Mean Platelet Volume 9.9 FL Neutrophils (%) (Auto) 57.3 % Lymphocytes (%) (Auto) 28.3 % Monocytes (%) (Auto) 9.3 % Eosinophils (%) (Auto) 3.8 % Basophils (%) (Auto) 1.3 % Neutrophils # (Auto) 2.6 TH/MM3 Lymphocytes # (Auto) 1.3 TH/MM3 Monocytes # (Auto) 0.4 TH/MM3 Eosinophils # (Auto) 0.2 TH/MM3 Basophils # (Auto) 0.1 TH/MM3 CBC Comment AUTO DIFF Differential Comment AUTO DIFF CONFIRMED Estimat Glomerular Filtration Rate 217 ML/MIN Objective Remarks GENERAL: Alert and oriented in Place and Person. SKIN: Skin is Warm and dry. HEAD: Atraumatic. Normocephalic. EYES: Pupils equal and round. No scleral icterus. No injection or drainage. ENT: No nasal bleeding or discharge. Surgical Wound dressed, decreased edema. NECK: Trachea midline. No JVD. CARDIOVASCULAR: Regular rate and rhythm. No murmur appreciated. RESPIRATORY: Decreased breath sounds bilateral, No wheezing or crackles. GASTROINTESTINAL: Abdomen soft, non-tender, nondistended. Hepatic and splenic margins not palpable. MUSCULOSKELETAL: No obvious deformities. No clubbing. No cyanosis. Symmetric edema of the lower legs NEUROLOGICAL: Awake and alert. No obvious cranial nerve deficits. Motor grossly within normal limits. Normal speech. PSYCHIATRIC: Appropriate mood and affect; insight and judgment normal. Medications and IVs Current Medications Medications (Trade) Dose Ordered Sig/Sobeida Route Start Time Stop Time Status Last Admin Sodium Chloride 1,000 ml @ 100 mls/hr Q10H IV 12/06/16 15:00 12/12/16 00:55 (NS Flush) 2 ml UNSCH PRN IV FLUSH 12/06/16 14:45 12/12/16 00:43 (NS Flush) 2 ml BID IV FLUSH 12/06/16 21:00 12/11/16 21:37 (Tylenol) 650 mg Q4H PRN PO 12/06/16 14:45 12/06/16 23:20 (Zofran Inj) 4 mg Q6H PRN IVP 12/06/16 14:45 (Narcan Inj) 0.4 mg UNSCH PRN IV PUSH 12/06/16 14:45 (Kelle-Colace) 1 tab BID PO 12/06/16 21:00 12/10/16 20:09 (Milk Of Magnesia Liq) 30 ml Q12H PRN PO 12/06/16 14:45 (Senokot) 17.2 mg Q12H PRN PO 12/06/16 14:45 (Dulcolax Supp) 10 mg DAILY PRN RECTAL 12/06/16 14:45 (Lactulose Liq) 30 ml DAILY PRN PO 12/06/16 14:45 Ampicillin Sodium/ Sulbactam Sodium 3 gm/Sodium Chloride 100 ml @ 200 mls/hr Q6H IV 12/06/16 18:00 12/12/16 05:15 (Mucinex Er) 600 mg BID PO 12/06/16 21:00 12/11/16 21:36 (Vitamin B1) 100 mg DAILY PO 12/09/16 09:00 (Romazicon Inj) 0.2 mg Q1M PRN IV PUSH 12/06/16 15:30 (Ativan) 1 mg Q4H PRN PO 12/06/16 15:30 12/06/16 22:00 (Ativan Inj) 1 mg Q4H PRN IV PUSH 12/06/16 15:30 12/12/16 05:16 (Ativan) 2 mg Q2H PRN PO 12/06/16 15:30 12/06/16 19:47 (Ativan Inj) 2 mg Q2H PRN IV PUSH 12/06/16 15:30 12/11/16 05:27 (Ativan Inj) 2 mg Q1H PRN IV PUSH 12/06/16 15:30 (Ativan Inj) 2 mg Q15M PRN IV PUSH 12/06/16 15:30 (Morphine Inj) 2 mg Q3H PRN IV PUSH 12/06/16 19:30 12/12/16 03:55 (Librium) 25 mg TID PRN PO 12/10/16 14:00 12/11/16 14:39 (Mag-Ox) 400 mg Q12HR PO 12/11/16 13:15 12/11/16 21:37 (Lactulose Liq) 30 ml TID PO 12/12/16 09:00 A/P Assessment and Plan 1. Osteomyelitis and Abscess of the Right Mandibular area, status post CT scan of Facial Bones with Contrast with Diagnosis There has been prior plating of a mandibular fracture. There is a large area of abnormal soft tissue and a septated fluid collection involving the right property inspector space with extension into the masseter muscle on the right and up into the right parotid gland. There is rarefaction of bone around the patient's plate. Findings would be consistent with osteomyelitis and abscess, he left AMA in June and did not wanted to pursue treatment, status post IV fluids, found Thrombocytopenia probable secondary to alcohol abuse and probable Liver pathology, With Diagnosis of Failed hardware right mandible angle region, Abscess right mandible, status post Incision and drainage right mandible abscess, Removal of the failed hardware right mandible, Irrigation and debridement or the right mandible, Biopsy right mandible tissue, closed reduction of the right mandible fracture. on Unasyn. drainages removed Improving condition. 2. Alcohol abuse now in active Delirium Tremens in Intensive Care unit, on Precedex and CIWA protocol. now seen in Medical Floor, stable Improving DTs continue CIWA and following electrolytes. 3. Severe electrolyte derangement at this time no new laboratory in EMR follow during the day for replacement if needed. 4. COPD stable on Bronchodilator, Mucolytic and Incentive spirometry 5. Thrombocytopenia/Anemia follow CBC in am tomorrow. 6. LFTs elevated in the past asked for hepatitis profile 7. Polysubstance abuse in the past drug screen now 8. Lower extremity lesions wound care to follow. 9. Tobacco dependence strongly recommended to stop smoking DVT prophylaxis with SCDs Code Status Full Code. Discussed Condition With Patient and nurse Miss Modi in the room. Discharge Planning Once cleared by specialists. Jose Clayton MD Dec 12, 2016 09:18
[2016-12-12 09:38] LABS: BICARBONATE 21.4 MEQ/L (21.0-32.0); MAGNESIUM 1.3 MG/DL (1.5-2.5); POTASSIUM 3.3 MEQ/L (3.5-5.1)
[2016-12-12] MEDS: guaiFENesin E.R. 600 MG TAB PO SCH ×2 (10:40→22:25)
[2016-12-12] MEDS: LACTULOSE SYRUP 20 GM/30 ML CUP PO SCH ×3 (10:40→17:11)
[2016-12-12] MEDS: DOCUSATE SODIUM 50 MG/SENNA 8.6 MG TAB PO SCH ×2 (10:40→21:00)
[2016-12-12] MEDS: MAGNESIUM OXIDE 400 MG TAB PO SCH ×2 (10:41→22:26)
[2016-12-12 12:00] VITALS: BP 98/11; PULSE 96; RESP 18; TEMP 95.8; O2SAT 95
[2016-12-12] MEDS ORDERED: POTASSIUM CHLORIDE 20 MEQ CONTROLLED RELEASE TAB PO ONE ×2 (15:00→18:00)
[2016-12-12 16:00] VITALS: BP 113/78; PULSE 109; RESP 18; TEMP 95.5; O2SAT 99
[2016-12-12] MEDS: MAGNESIUM SULFATE 1 GM PREMIX 100 ML IV SCH ×2 (17:11→17:35)
[2016-12-12 20:00] VITALS: BP 116/76; PULSE 86; RESP 22; TEMP 98.3; O2SAT 97
[2016-12-13] VITALS (7 sets, daily range): BP systolic 99–131; BP diastolic 61–87; PULSE 80–97; RESP 17–22; TEMP 95.7–96.8; O2SAT 95–98
[2016-12-13] MEDS: MAGNESIUM SULFATE 1 GM PREMIX 100 ML IV SCH (00:49)
[2016-12-13] MEDS: MORPHINE SULFATE 4 MG/ML INJ IV PUSH PRN ×4 (01:01→20:46)
[2016-12-13] MEDS: LORazepam 2 MG/ML VIAL IV PUSH PRN ×3 (01:01→20:53)
[2016-12-13] MEDS: AMPICILLIN-SULBACTAM INJ 3 GM in SODIUM CHLORIDE 0.9% INJ 100 ML IV SCH ×4 (02:25→18:32)
[2016-12-13 05:52] LABS: AUTOMATED NEUTROPHIL # 2.6 TH/MM3 (1.8-7.7); EOSINOPHIL # 0.1 TH/MM3 (0-0.4); EOSINOPHIL % 2.4 % (0.0-4.0); HEMATOCRIT 33.7 % (39.0-51.0); LYMPH % 24.4 % (9.0-44.0); LYMPHOCYTE # 1.1 TH/MM3 (1.0-4.8); MEAN CELL VOLUME 92.9 FL (80.0-100.0); MEAN CORPUSCULAR HEMOGLOBIN 31.3 PG (27.0-34.0); MEAN CORPUSCULAR HGB CONC 33.7 % (32.0-36.0); MONO % 15.3 % (0.0-8.0); NEUT % 56.9 % (16.0-70.0); PLATELET COUNT 84 TH/MM3 (150-450); RED BLOOD COUNT 3.62 MIL/MM3 (4.50-5.90); RED CELL DISTRIBUTION WIDTH 14.3 % (11.6-17.2); WHITE BLOOD COUNT 4.6 TH/MM3 (4.0-11.0)
[2016-12-13 06:01] LABS: HEMO FLAGS AUTO DIFF
[2016-12-13 06:17] LABS: BICARBONATE 23.4 MEQ/L (21.0-32.0); POTASSIUM 3.7 MEQ/L (3.5-5.1)
[2016-12-13 06:36] LABS: SCAN/DIFF AUTO DIFF CONFIRMED
[2016-12-13] MEDS: SODIUM CHLORIDE 0.9% FLUSH 10 ML FLUSH IV FLUSH SCH ×2 (09:00→20:48)
[2016-12-13] MEDS: DOCUSATE SODIUM 50 MG/SENNA 8.6 MG TAB PO SCH ×2 (09:00→20:46)
[2016-12-13] MEDS ORDERED: POTASSIUM CHLORIDE 20 MEQ CONTROLLED RELEASE TAB PO SCH (09:00)
[2016-12-13] MEDS: LACTULOSE SYRUP 20 GM/30 ML CUP PO SCH ×3 (10:38→18:31)
[2016-12-13] MEDS: MAGNESIUM OXIDE 400 MG TAB PO SCH ×2 (10:39→20:46)
[2016-12-13] MEDS: guaiFENesin E.R. 600 MG TAB PO SCH ×2 (10:39→20:46)
[2016-12-13] MEDS: THIAMINE HCL 100 MG TAB PO SCH (10:39)
[2016-12-13] MEDS: POTASSIUM CHLORIDE 20 MEQ CONTROLLED RELEASE TAB PO SCH (10:39)
[2016-12-13] MEDS: NICOTINE 14 MG/24 HR PATCH T-DERMAL SCH (12:13)
--- NOTE | 2016-12-13 13:19 | HHI.PR ---
Subjective Remarks In bed, he is in restraints as ne was noted agitated on/off and with hallucinations. Patient is more awake and alert at this time x3. No fever ro chills. No pain at this time.No tremors. Not eating much . No fever or chills. Objective Vitals Vital Signs Date Time Temp Pulse Resp B/P (MAP) Pulse Ox O2 Delivery O2 Flow Rate FiO2 12/13/16 12:00 96.3 84 17 104/72 (83) 97 12/13/16 08:00 96.1 91 17 122/74 (90) 95 12/13/16 04:00 96.4 86 20 118/73 (88) 98 12/13/16 00:00 96.8 95 22 131/87 (102) 97 12/12/16 20:00 98.3 86 22 116/76 (89) 97 12/12/16 16:00 95.5 109 18 113/78 (90) 99 I/O 12/12/16 12/12/16 12/12/16 12/13/16 12/13/16 12/13/16 07:00 15:00 23:00 07:00 15:00 23:00 Intake Total 666 ml 1000 ml 650 ml 340 ml Output Total 900 ml 1625 ml 450 ml Balance -234 ml 1000 ml -975 ml -110 ml Intake Oral 240 ml 550 ml 240 ml IV Total 426 ml 1000 ml 100 ml 100 ml Output Urine Total 900 ml 1625 ml 450 ml # Bowel Movements 6 1 Result Diagram: 12/13/16 0535 12/13/16 0535 Imaging Last Impressions Facial Bones X-Ray 12/08/16 0000 Signed Impressions: Service Date/Time: Thursday, December 08, 2016 17:06 - CONCLUSION: Extensive postsurgical changes involving the mandible as described above. Baltazar Nieto MD Multiplanar Reconstruction 12/07/16 1349 Signed Impressions: Service Date/Time: Wednesday, December 07, 2016 12:23 - CONCLUSION: 3-D reconstructions reveal anatomic alignment extensive plate and screws.. Cristofer Navas MD FACR Maxillofacial CT 12/06/16 0000 Signed Impressions: Service Date/Time: Tuesday, December 06, 2016 12:23 - CONCLUSION: 1. There has been prior plating of a mandibular fracture. There is a large area of abnormal soft tissue and a septated fluid collection involving the right director digital catalogue space with extension into the masseter muscle on the right and up into the right parotid gland. There is rarefaction of bone around the patient's plate. Findings would be consistent with osteomyelitis and abscess. Findings are discussed in detail above. Sage Navas MD Chest X-Ray 12/06/16 0000 Signed Impressions: Service Date/Time: Tuesday, December 06, 2016 12:08 - CONCLUSION: 1. There is a new area of atelectasis or infiltrate at the left lung base. Pneumonia is not excluded. 2. COPD changes. Sage Navas MD Objective Remarks GENERAL: Alert and oriented in Place and Person. CARDIOVASCULAR: Regular rate and rhythm. No murmur appreciated. RESPIRATORY: Decreased breath sounds bilateral, No wheezing or crackles. GASTROINTESTINAL: Abdomen soft, non-tender, nondistended. Hepatic and splenic margins not palpable. MUSCULOSKELETAL: No obvious deformities. No clubbing. No cyanosis. Symmetric edema of the lower legs NEUROLOGICAL: Awake and alert. No obvious cranial nerve deficits. Motor grossly within normal limits. Normal speech. PSYCHIATRIC: Appropriate mood and affect; insight and judgment normal. A/P Assessment and Plan Osteomyelitis and Abscess of the Right Mandibular area, status post CT scan of Facial Bones with Contrast with Diagnosis There has been prior plating of a mandibular fracture. There is a large area of abnormal soft tissue and a septated fluid collection involving the right director digital catalogue space with extension into the masseter muscle on the right and up into the right parotid gland. There is rarefaction of bone around the patient's plate. Findings would be consistent with osteomyelitis and abscess, he left AMA in June and did not wanted to pursue treatment, status post IV fluids, found Thrombocytopenia probable secondary to alcohol abuse and probable Liver pathology, With Diagnosis of Failed hardware right mandible angle region, Abscess right mandible , status post Incision and drainage right mandible abscess, Removal of the failed hardware right mandible, Irrigation and debridement or the right mandible , Biopsy right mandible tissue, closed reduction of the right mandible fracture. on Unasyn. drainages removed Improving condition. Alcohol abuse with Delirium Tremens was in ICU on Precedex, now on the floor off precedex, continue CIWA protocol. Improving DTs continue CIWA and following electrolytes. Severe electrolyte derangement at this time no new laboratory in EMR follow during the day for replacement if needed. COPD stable on Bronchodilator, Mucolytic and Incentive spirometry Thrombocytopenia/Anemia follow CBC in am tomorrow. LFTs elevated in the past asked for hepatitis profile Polysubstance abuse in the past drug screen now Lower extremity lesions wound care to follow. Tobacco dependence strongly recommended to stop smoking, nicotine patch DVT prophylaxis with SCDs Code Status Full Code. Discussed Condition With Patient and nurse Miss Modi in the room. Discharge Planning Once cleared by specialists. Irma Guadalupe MD Dec 13, 2016 13:19
[2016-12-13] MEDS: SODIUM CHLOR 0.9% 1000 ML INJ 1,000 ML IV SCH (17:00)
[2016-12-14] MEDS: LORazepam 2 MG/ML VIAL IV PUSH PRN ×6 (00:38→23:54)
[2016-12-14 01:12] VITALS: BP 99/66; PULSE 99; RESP 16; TEMP 96.4; O2SAT 99
[2016-12-14] MEDS: MORPHINE SULFATE 4 MG/ML INJ IV PUSH PRN ×4 (03:33→23:52)
[2016-12-14 04:45] VITALS: BP 98/62; PULSE 68; RESP 16; TEMP 96.2; O2SAT 99
[2016-12-14] MEDS: AMPICILLIN-SULBACTAM INJ 3 GM in SODIUM CHLORIDE 0.9% INJ 100 ML IV SCH ×6 (06:00→23:51)
[2016-12-14] MEDS: SODIUM CHLOR 0.9% 1000 ML INJ 1,000 ML IV SCH ×4 (06:39→23:51)
[2016-12-14 07:48] LABS: BASOPHIL # 0.1 TH/MM3 (0-0.2); BASOPHIL % 2.9 % (0.0-2.0); EOSINOPHIL # 0.2 TH/MM3 (0-0.4); EOSINOPHIL % 5.2 % (0.0-4.0); HEMO FLAGS AUTO DIFF; LYMPH % 25.2 % (9.0-44.0); MEAN CELL VOLUME 94.7 FL (80.0-100.0); MEAN CORPUSCULAR HGB CONC 32.7 % (32.0-36.0); NEUT % 49.7 % (16.0-70.0); PLATELET COUNT 98 TH/MM3 (150-450); RED BLOOD COUNT 3.38 MIL/MM3 (4.50-5.90); RED CELL DISTRIBUTION WIDTH 14.2 % (11.6-17.2)
[2016-12-14 08:00] VITALS: BP 109/69; PULSE 76; RESP 20; TEMP 96.9; O2SAT 97
[2016-12-14 08:07] LABS: BICARBONATE 21.2 MEQ/L (21.0-32.0); MAGNESIUM 1.7 MG/DL (1.5-2.5); POTASSIUM 3.4 MEQ/L (3.5-5.1)
[2016-12-14 08:16] LABS: SCAN/DIFF AUTO DIFF CONFIRMED
[2016-12-14] MEDS: DOCUSATE SODIUM 50 MG/SENNA 8.6 MG TAB PO SCH ×2 (08:25→20:45)
[2016-12-14] MEDS: guaiFENesin E.R. 600 MG TAB PO SCH ×2 (08:25→20:44)
[2016-12-14] MEDS: THIAMINE HCL 100 MG TAB PO SCH (08:25)
[2016-12-14] MEDS: MAGNESIUM OXIDE 400 MG TAB PO SCH ×2 (08:25→20:44)
[2016-12-14] MEDS: LACTULOSE SYRUP 20 GM/30 ML CUP PO SCH ×3 (08:25→17:31)
[2016-12-14] MEDS: NICOTINE 14 MG/24 HR PATCH T-DERMAL SCH (08:25)
[2016-12-14] MEDS: POTASSIUM CHLORIDE 20 MEQ CONTROLLED RELEASE TAB PO SCH (08:25)
[2016-12-14] MEDS: SODIUM CHLORIDE 0.9% FLUSH 10 ML FLUSH IV FLUSH SCH ×2 (08:26→20:44)
[2016-12-14] MEDS: REMOVE OLD PATCH T-DERMAL SCH (08:28)
[2016-12-14] MEDS ORDERED: POTASSIUM CHLORIDE 25 MEQ EFFERVESCENT TAB PO ONE (11:15)
[2016-12-14 12:00] VITALS: BP 90/63; PULSE 80; RESP 19; TEMP 96.9; O2SAT 96
--- NOTE | 2016-12-14 12:56 | HHI.IDPN ---
Subjective Subjective Remarks pt appears confused and shaky he is afebrile no cough WBC wnl Antibiotics Unasyn Allergies: Coded Allergies: *MDRO Multi-Drug Resistant Organism (Verified Adverse Reaction, Unknown, 12/06/16) MRSA (thigh wound) 2004 MRSA PCR (nares) positive - 07/08/15 Objective . Vital Signs Date Time Temp Pulse Resp B/P (MAP) Pulse Ox O2 Delivery O2 Flow Rate FiO2 12/14/16 12:00 96.9 80 19 90/63 (72) 96 12/14/16 08:00 96.9 76 20 109/69 (82) 97 12/14/16 04:45 96.2 68 16 98/62 (74) 99 12/14/16 03:38 16 12/14/16 01:12 96.4 99 16 99/66 (77) 99 12/13/16 20:00 96.7 97 18 99/61 (74) 97 12/13/16 19:15 96 12/13/16 16:00 95.7 80 17 99/69 (79) 97 12/14/16 12/14/16 12/15/16 15:00 23:00 07:00 Intake Total 120 ml Balance 120 ml Intake Oral 120 ml . Laboratory Tests Test 12/13/16 05:35 12/14/16 06:54 White Blood Count 4.6 TH/MM3 4.0 TH/MM3 Red Blood Count 3.62 MIL/MM3 3.38 MIL/MM3 Hemoglobin 11.3 GM/DL 10.5 GM/DL Hematocrit 33.7 % 32.0 % Mean Corpuscular Volume 92.9 FL 94.7 FL Mean Corpuscular Hemoglobin 31.3 PG 31.0 PG Mean Corpuscular Hemoglobin Concent 33.7 % 32.7 % Red Cell Distribution Width 14.3 % 14.2 % Platelet Count 84 TH/MM3 98 TH/MM3 Mean Platelet Volume 9.3 FL 9.7 FL Neutrophils (%) (Auto) 56.9 % 49.7 % Lymphocytes (%) (Auto) 24.4 % 25.2 % Monocytes (%) (Auto) 15.3 % 17.0 % Eosinophils (%) (Auto) 2.4 % 5.2 % Basophils (%) (Auto) 1.0 % 2.9 % Neutrophils # (Auto) 2.6 TH/MM3 2.0 TH/MM3 Lymphocytes # (Auto) 1.1 TH/MM3 1.0 TH/MM3 Monocytes # (Auto) 0.7 TH/MM3 0.7 TH/MM3 Eosinophils # (Auto) 0.1 TH/MM3 0.2 TH/MM3 Basophils # (Auto) 0.0 TH/MM3 0.1 TH/MM3 CBC Comment AUTO DIFF AUTO DIFF Differential Comment AUTO DIFF CONFIRMED AUTO DIFF CONFIRMED Laboratory Tests Test 12/13/16 05:35 12/14/16 06:54 Blood Urea Nitrogen 3 MG/DL 5 MG/DL Creatinine 0.59 MG/DL 0.51 MG/DL Random Glucose 81 MG/DL 78 MG/DL Calcium Level 8.0 MG/DL 7.8 MG/DL Magnesium Level 2.0 MG/DL 1.7 MG/DL Sodium Level 137 MEQ/L 141 MEQ/L Potassium Level 3.7 MEQ/L 3.4 MEQ/L Chloride Level 106 MEQ/L 112 MEQ/L Carbon Dioxide Level 23.4 MEQ/L 21.2 MEQ/L Anion Gap 8 MEQ/L 8 MEQ/L Estimat Glomerular Filtration Rate 147 ML/MIN 173 ML/MIN Imaging Last Impr Last Impressions Facial Bones X-Ray 12/08/16 0000 Signed Impressions: Service Date/Time: Thursday, December 08, 2016 17:06 - CONCLUSION: Extensive postsurgical changes involving the mandible as described above. Baltazar Nieto MD Multiplanar Reconstruction 12/07/16 1349 Signed Impressions: Service Date/Time: Wednesday, December 07, 2016 12:23 - CONCLUSION: 3-D reconstructions reveal anatomic alignment extensive plate and screws.. Cristofer Navas MD FACR Maxillofacial CT 12/06/16 0000 Signed Impressions: Service Date/Time: Tuesday, December 06, 2016 12:23 - CONCLUSION: 1. There has been prior plating of a mandibular fracture. There is a large area of abnormal soft tissue and a septated fluid collection involving the right hris specialist space with extension into the masseter muscle on the right and up into the right parotid gland. There is rarefaction of bone around the patient's plate. Findings would be consistent with osteomyelitis and abscess. Findings are discussed in detail above. Sage Navas MD Chest X-Ray 12/06/16 0000 Signed Impressions: Service Date/Time: Nithin, December 06, 2016 12:08 - CONCLUSION: 1. There is a new area of atelectasis or infiltrate at the left lung base. Pneumonia is not excluded. 2. COPD changes. Sage Navas MD Physical Exam CONSTITUTIONAL/GENERAL: awake and confused and tremulous TUBES/LINES/DRAINS: SKIN: No jaundice, rashes, or lesions. HEAD: Atraumatic. Normocephalic. R cheek with dressing in plcce much less edema RESPIRATORY/CHEST: unlabored respirations. MUSCULOSKELETAL: Extremities without clubbing, cyanosis, or edema. NEUROLOGICAL: awake alert + prominent BUE tremor PSYCHIATRIC: appears confused, but pleasant and not agitated Assessment & Plan Remarks R mandibular chronic osteomylitis - sp sugery yday: - clx with beta hemolytic strep - mixed Gram+/gram- org's - path - inflammation chronic and acute of soft tissues ETOH abuse DT, still shaky Cont unasyn Once ready to dc switch to Augmentin liquid form PO 8 weeks will see as needed Amina Deras MD Dec 14, 2016 12:56
[2016-12-14] MEDS ORDERED: AUGM250S2 PO (13:04)
[2016-12-14 16:00] VITALS: BP 97/54; PULSE 80; RESP 19; TEMP 97.3; O2SAT 96
--- NOTE | 2016-12-14 18:28 | HHI.PR ---
Subjective Remarks In the chair appears in nad. With tremors at times. More awake and alert. N fever or chills./ No n/v/d/c. Eating fairly well. Objective Vitals Vital Signs Date Time Temp Pulse Resp B/P (MAP) Pulse Ox O2 Delivery O2 Flow Rate FiO2 12/14/16 16:00 97.3 80 19 97/54 (68) 96 12/14/16 12:00 96.9 80 19 90/63 (72) 96 12/14/16 08:00 96.9 76 20 109/69 (82) 97 12/14/16 04:45 96.2 68 16 98/62 (74) 99 12/14/16 03:38 16 12/14/16 01:12 96.4 99 16 99/66 (77) 99 12/13/16 20:00 96.7 97 18 99/61 (74) 97 12/13/16 19:15 96 I/O 12/13/16 12/13/16 12/13/16 12/14/16 12/14/16 12/14/16 06:59 14:59 22:59 06:59 14:59 22:59 Intake Total 440 ml 100 ml 580 ml 1840 ml 120 ml Output Total 450 ml 1200 ml 1000 ml Balance -10 ml 100 ml -620 ml 840 ml 120 ml Intake Oral 240 ml 480 ml 540 ml 120 ml IV Total 200 ml 100 ml 100 ml 1300 ml Output Urine Total 450 ml 1200 ml 1000 ml # Voids 2 # Bowel Movements 1 2 5 Result Diagram: 12/14/16 0654 12/14/16 0654 Imaging Last Impressions Facial Bones X-Ray 12/08/16 0000 Signed Impressions: Service Date/Time: Thursday, December 08, 2016 17:06 - CONCLUSION: Extensive postsurgical changes involving the mandible as described above. Baltazar Nieto MD Multiplanar Reconstruction 12/07/16 1349 Signed Impressions: Service Date/Time: Wednesday, December 07, 2016 12:23 - CONCLUSION: 3-D reconstructions reveal anatomic alignment extensive plate and screws.. Cristofer Navas MD FACR Maxillofacial CT 12/06/16 0000 Signed Impressions: Service Date/Time: Tuesday, December 06, 2016 12:23 - CONCLUSION: 1. There has been prior plating of a mandibular fracture. There is a large area of abnormal soft tissue and a septated fluid collection involving the right nicking machine operator space with extension into the masseter muscle on the right and up into the right parotid gland. There is rarefaction of bone around the patient's plate. Findings would be consistent with osteomyelitis and abscess. Findings are discussed in detail above. Sage Navas MD Chest X-Ray 12/06/16 0000 Signed Impressions: Service Date/Time: Tuesday, December 06, 2016 12:08 - CONCLUSION: 1. There is a new area of atelectasis or infiltrate at the left lung base. Pneumonia is not excluded. 2. COPD changes. Sage Navas MD Objective Remarks GENERAL: Alert and oriented in Place and Person. CARDIOVASCULAR: Regular rate and rhythm. No murmur appreciated. RESPIRATORY: Decreased breath sounds bilateral, No wheezing or crackles. GASTROINTESTINAL: Abdomen soft, non-tender, nondistended. Hepatic and splenic margins not palpable. MUSCULOSKELETAL: No obvious deformities. No clubbing. No cyanosis. Symmetric edema of the lower legs NEUROLOGICAL: Awake and alert. No obvious cranial nerve deficits. Motor grossly within normal limits. Normal speech. PSYCHIATRIC: Appropriate mood and affect; insight and judgment normal. A/P Assessment and Plan Osteomyelitis and Abscess of the Right Mandibular area, status post CT scan of Facial Bones with Contrast with Diagnosis There has been prior plating of a mandibular fracture. There is a large area of abnormal soft tissue and a septated fluid collection involving the right nicking machine operator space with extension into the masseter muscle on the right and up into the right parotid gland. There is rarefaction of bone around the patient's plate. Findings would be consistent with osteomyelitis and abscess, he left AMA in June and did not wanted to pursue treatment, status post IV fluids, found Thrombocytopenia probable secondary to alcohol abuse and probable Liver pathology, With Diagnosis of Failed hardware right mandible angle region, Abscess right mandible , status post Incision and drainage right mandible abscess, Removal of the failed hardware right mandible, Irrigation and debridement or the right mandible , Biopsy right mandible tissue, closed reduction of the right mandible fracture. on Unasyn. drainages removed Improving condition. Alcohol abuse with Delirium Tremens was in ICU on Precedex, now on the floor off precedex, continue CIWA protocol. Improving DTs continue CIWA and following electrolytes. Severe electrolyte derangement at this time no new laboratory in EMR follow during the day for replacement if needed. COPD stable on Bronchodilator, Mucolytic and Incentive spirometry Thrombocytopenia/Anemia follow CBC in am tomorrow. LFTs elevated in the past asked for hepatitis profile Polysubstance abuse in the past drug screen now Lower extremity lesions wound care to follow. Tobacco dependence strongly recommended to stop smoking, nicotine patch DVT prophylaxis with SCDs Code Status Full Code. Discussed Condition With Patient and nurse Miss Modi in the room. Discharge Planning Once improved, still with EtOH withdrawals, DC when improved and cleared by specialists. Irma Guadalupe MD Dec 14, 2016 18:28
[2016-12-14 20:00] VITALS: BP 89/53; PULSE 90; RESP 20; TEMP 96.9; O2SAT 98
[2016-12-15] VITALS (7 sets, daily range): BP systolic 78–127; BP diastolic 49–77; PULSE 67–98; RESP 16–20; TEMP 96.2–97.9; O2SAT 96–99
[2016-12-15] MEDS: MORPHINE SULFATE 4 MG/ML INJ IV PUSH PRN ×2 (02:52→06:38)
[2016-12-15] MEDS: LORazepam 2 MG/ML VIAL IV PUSH PRN (03:00)
[2016-12-15] MEDS: AMPICILLIN-SULBACTAM INJ 3 GM in SODIUM CHLORIDE 0.9% INJ 100 ML IV SCH ×3 (06:38→17:50)
[2016-12-15] MEDS: DOCUSATE SODIUM 50 MG/SENNA 8.6 MG TAB PO SCH ×2 (09:00→20:25)
[2016-12-15] MEDS ORDERED: SODIUM CHLOR 0.9% 1000 ML INJ 1,000 ML IV ONE (09:00)
[2016-12-15] MEDS: SODIUM CHLORIDE 0.9% FLUSH 10 ML FLUSH IV FLUSH SCH ×2 (09:00→20:25)
[2016-12-15] MEDS: LACTULOSE SYRUP 20 GM/30 ML CUP PO SCH ×3 (09:00→17:50)
[2016-12-15] MEDS: NICOTINE 14 MG/24 HR PATCH T-DERMAL SCH (09:14)
[2016-12-15] MEDS: REMOVE OLD PATCH T-DERMAL SCH (09:14)
[2016-12-15] MEDS: THIAMINE HCL 100 MG TAB PO SCH (09:16)
[2016-12-15] MEDS: guaiFENesin E.R. 600 MG TAB PO SCH ×2 (09:17→20:23)
[2016-12-15] MEDS: MAGNESIUM OXIDE 400 MG TAB PO SCH ×2 (09:18→20:23)
[2016-12-15] MEDS: POTASSIUM CHLORIDE 20 MEQ CONTROLLED RELEASE TAB PO SCH (09:18)
[2016-12-15] MEDS: SODIUM CHLOR 0.9% 1000 ML INJ 1,000 ML IV SCH ×2 (09:22→17:49)
--- NOTE | 2016-12-15 12:55 | HHI.PR ---
Subjective Remarks Still with tremors, however improved./ No nausea or vomiting. Says she is eating better.No chest pain or sob. Pain is controlled by meds. Objective Vitals Vital Signs Date Time Temp Pulse Resp B/P (MAP) Pulse Ox O2 Delivery O2 Flow Rate FiO2 12/15/16 12:00 97.9 67 20 103/64 (77) 98 12/15/16 10:23 84 96/57 (70) 12/15/16 08:22 78/55 (63) 12/15/16 08:06 96.9 93 19 78/49 (59) 96 12/15/16 01:49 97.5 88 20 113/73 (86) 98 12/14/16 20:00 96.9 90 20 89/53 (65) 98 12/14/16 16:00 97.3 80 19 97/54 (68) 96 I/O 12/14/16 12/14/16 12/14/16 12/15/16 12/15/16 12/15/16 07:00 15:00 23:00 07:00 15:00 23:00 Intake Total 1840 ml 120 ml 950 ml 4033 ml 835 ml Output Total 1000 ml 1200 ml 206 ml Balance 840 ml 120 ml -250 ml 3827 ml 835 ml Intake Oral 540 ml 120 ml 950 ml 240 ml IV Total 1300 ml 4033 ml 595 ml Output Urine Total 1000 ml 800 ml 200 ml Stool Total 400 ml 6 ml # Voids 2 # Bowel Movements 5 Result Diagram: 12/14/16 0654 12/14/16 0654 Imaging Last Impressions Facial Bones X-Ray 12/08/16 0000 Signed Impressions: Service Date/Time: Thursday, December 08, 2016 17:06 - CONCLUSION: Extensive postsurgical changes involving the mandible as described above. Baltazar Nieto MD Multiplanar Reconstruction 12/07/16 1349 Signed Impressions: Service Date/Time: Wednesday, December 07, 2016 12:23 - CONCLUSION: 3-D reconstructions reveal anatomic alignment extensive plate and screws.. Cristofer Navas MD FACR Maxillofacial CT 12/06/16 0000 Signed Impressions: Service Date/Time: Tuesday, December 06, 2016 12:23 - CONCLUSION: 1. There has been prior plating of a mandibular fracture. There is a large area of abnormal soft tissue and a septated fluid collection involving the right outside property agent space with extension into the masseter muscle on the right and up into the right parotid gland. There is rarefaction of bone around the patient's plate. Findings would be consistent with osteomyelitis and abscess. Findings are discussed in detail above. Sage Navas MD Chest X-Ray 12/06/16 0000 Signed Impressions: Service Date/Time: Tuesday, December 06, 2016 12:08 - CONCLUSION: 1. There is a new area of atelectasis or infiltrate at the left lung base. Pneumonia is not excluded. 2. COPD changes. Sage Navas MD Objective Remarks GENERAL: Alert and oriented in Place and Person. CARDIOVASCULAR: Regular rate and rhythm. No murmur appreciated. RESPIRATORY: Decreased breath sounds bilateral, No wheezing or crackles. GASTROINTESTINAL: Abdomen soft, non-tender, nondistended. Hepatic and splenic margins not palpable. MUSCULOSKELETAL: No obvious deformities. No clubbing. No cyanosis. Symmetric edema of the lower legs NEUROLOGICAL: Awake and alert. No obvious cranial nerve deficits. Motor grossly within normal limits. Normal speech. PSYCHIATRIC: Appropriate mood and affect; insight and judgment normal. A/P Assessment and Plan Osteomyelitis and Abscess of the Right Mandibular area, status post CT scan of Facial Bones with Contrast with Diagnosis There has been prior plating of a mandibular fracture. There is a large area of abnormal soft tissue and a septated fluid collection involving the right outside property agent space with extension into the masseter muscle on the right and up into the right parotid gland. There is rarefaction of bone around the patient's plate. Findings would be consistent with osteomyelitis and abscess, he left AMA in June and did not wanted to pursue treatment, status post IV fluids, found Thrombocytopenia probable secondary to alcohol abuse and probable Liver pathology, With Diagnosis of Failed hardware right mandible angle region, Abscess right mandible , status post Incision and drainage right mandible abscess, Removal of the failed hardware right mandible, Irrigation and debridement or the right mandible , Biopsy right mandible tissue, closed reduction of the right mandible fracture. on Unasyn. drainages removed Improving condition. Alcohol abuse with Delirium Tremens was in ICU on Precedex, now on the floor off precedex, continue CIWA protocol. Improving DTs continue CIWA and following electrolytes. Severe electrolyte derangement at this time no new laboratory in EMR follow during the day for replacement if needed. COPD stable on Bronchodilator, Mucolytic and Incentive spirometry Thrombocytopenia/Anemia follow CBC in am tomorrow. LFTs elevated in the past asked for hepatitis profile Polysubstance abuse in the past drug screen now Lower extremity lesions wound care to follow. Tobacco dependence strongly recommended to stop smoking, nicotine patch DVT prophylaxis with SCDs Code Status Full Code. Discussed Condition With Patient and nurse Miss Modi in the room. Discharge Planning Once improved, still with EtOH withdrawals, DC when improved poss tomorrow Cleared by specialists. To f/u as OP with Dr Abreu .Discussed with Dr Abreu. Patient is not compliant, he had multiple surgeries 2/2 noncompliance , persistent ETOH use. Irma Guadalupe MD Dec 15, 2016 12:55
--- NOTE | 2016-12-15 12:56 | HHI.PR ---
Subjective Remarks POD 11 s/p removal of failed hardware right mandible I & D right mandible abscess, biopsy right mandible soft tissue pt seen and examined, no complaints on regular floor aaox3, nad nurse at bedside., tolerating full liquid diet Objective Vital Signs Date Time Temp Pulse Resp B/P (MAP) Pulse Ox O2 Delivery O2 Flow Rate FiO2 12/15/16 12:00 97.9 67 20 103/64 (77) 98 12/15/16 10:23 84 96/57 (70) 12/15/16 08:22 78/55 (63) 12/15/16 08:06 96.9 93 19 78/49 (59) 96 12/15/16 01:49 97.5 88 20 113/73 (86) 98 12/14/16 20:00 96.9 90 20 89/53 (65) 98 12/14/16 16:00 97.3 80 19 97/54 (68) 96 I/O 12/14/16 12/14/16 12/14/16 12/15/16 12/15/16 12/15/16 07:00 15:00 23:00 07:00 15:00 23:00 Intake Total 1840 ml 120 ml 950 ml 4033 ml 835 ml Output Total 1000 ml 1200 ml 206 ml Balance 840 ml 120 ml -250 ml 3827 ml 835 ml Intake Oral 540 ml 120 ml 950 ml 240 ml IV Total 1300 ml 4033 ml 595 ml Output Urine Total 1000 ml 800 ml 200 ml Stool Total 400 ml 6 ml # Voids 2 # Bowel Movements 5 Result Diagram: 12/14/16 0654 12/14/16 0654 Procedures With Diagnosis of Failed hardware right mandible angle region, Abscess right mandible, status post Incision and drainage right mandible abscess, Removal of the failed hardware right mandible, Irrigation and debridement or the right mandible, Biopsy right mandible tissue, closed reduction of the right mandible fracture. 12/08/16 Objective Remarks right facial edema decreased/softer, no erythema/no tenderness drain site healing well bite in occlusion/ arch bars and wires in place wound margins well approximated sutures intact tissues pink and well perfused wire cutters noted at head of bed no signs of infection bleeding pus edema Assessment and Plan Assessment and Plan POD 11 s/p removal of failed hardware right mandible I & D right mandible abscess, biopsy right mandible soft tissue continue full liquid diet as tolerated in treatment for D.T. GRAM STAIN Final 12/08/16 RARE EPITHELIAL CELL MANY WBC'S RARE GRAM POSITIVE COCCI IN PAIRS FEW PLEOMORPHIC GRAM POSITIVE RODS wOUND CULTURE Final 12/10/16 RARE GROWTH STREP NOT A,B D path RIGHT MANDIBLE, BIOPSY: ACUTELY AND CHRONICALLY INFLAMED FIBROUS TISSUE. NO BONE IDENTIFIED. OK to d/c to home form oms standpoint f/up dr joseph 1 week - [facility], - call send pt home with wire cutters- wire cutters with pt at all times for emergency airway management d/w with attending Adan Joseph DMD Dec 15, 2016 12:56
--- NOTE | 2016-12-15 15:42 | HHI.PR ---
Addendum to Inpatient Note Addendum Reason: Additional Documentation Additional Information Pt is OK to go home from [facility] once is ETOH w/d symptoms are resolved Plan to discharge on liquid Augment in x 2 mos ( script is filed in d/c medx) Amina Deras MD Dec 15, 2016 15:42
--- NOTE | 2016-12-15 16:18 | HHI.DS ---
Discharge Summary Admission Date Dec 06, 2016 at 14:13 Discharge Date: Dec 16, 2016 Admitting Diagnosis R mandibular abcess and osteomyelitis (1) Cellulitis of pipe stripper space of mouth ICD Code: K12.2 - Cellulitis and abscess of mouth Status: Acute (2) Myositis ICD Code: M60.9 - Myositis, unspecified Status: Acute (3) Tobacco abuse ICD Code: Z72.0 - Tobacco use Status: Chronic (4) Alcohol abuse ICD Code: F10.10 - Alcohol abuse, uncomplicated Status: Chronic (5) Facial cellulitis ICD Code: L03.211 - Cellulitis of face Status: Acute (6) Mandible fracture ICD Code: S02.609A - Fracture of mandible, unspecified, initial encounter for closed fracture Status: Acute (7) Facial edema ICD Code: R60.0 - Localized edema Status: Acute (8) Alcohol withdrawal ICD Code: F10.239 - Alcohol dependence with withdrawal, unspecified Status: Acute Procedures With Diagnosis of Failed hardware right mandible angle region, Abscess right mandible, status post Incision and drainage right mandible abscess, Removal of the failed hardware right mandible, Irrigation and debridement or the right mandible, Biopsy right mandible tissue, closed reduction of the right mandible fracture. on Unasyn. drainages removed Surgeon Dr Joseph Brief History - From Admission This is a pleasant 46 y/o Male with complaint of right sided jaw swelling, He has had it for 8 months. Patient had jaw reconstructive surgery June 2015. Was hospitalized June 2016 for an infection in that area but he left A. He is a homeless alcoholic who has not followed up with anybody since. Now his right side of his face is swollen up like a baseball. Symptoms moderately severe. Symptoms are exacerbated by his noncompliance. No alleviating factors. He was drinking alcohol earlier today. Seen in Emergency room after discuss with ER specialist the patient is very non compliant with his medical management,has multiple lesions on bilateral legs with loss of continuity of the skin. CBC/BMP: 12/14/16 0654 12/14/16 0654 Significant Findings Laboratory Tests Test 12/13/16 05:35 10/16/17 06:54 Red Blood Count 3.62 MIL/MM3 (4.50-5.90) 3.38 MIL/MM3 (4.50-5.90) Hemoglobin 11.3 GM/DL (13.0-17.0) 10.5 GM/DL (13.0-17.0) Hematocrit 33.7 % (39.0-51.0) 32.0 % (39.0-51.0) Platelet Count 84 TH/MM3 (150-450) 98 TH/MM3 (150-450) Monocytes (%) (Auto) 15.3 % (0.0-8.0) 17.0 % (0.0-8.0) Blood Urea Nitrogen 3 MG/DL (7-18) 5 MG/DL (7-18) Creatinine 0.59 MG/DL (0.60-1.30) 0.51 MG/DL (0.60-1.30) Calcium Level 8.0 MG/DL (8.5-10.1) 7.8 MG/DL (8.5-10.1) Eosinophils (%) (Auto) 5.2 % (0.0-4.0) Basophils (%) (Auto) 2.9 % (0.0-2.0) Potassium Level 3.4 MEQ/L (3.5-5.1) Chloride Level 112 MEQ/L (98-107) Imaging Last Impressions Facial Bones X-Ray 12/08/16 0000 Signed Impressions: Service Date/Time: Thursday, December 08, 2016 17:06 - CONCLUSION: Extensive postsurgical changes involving the mandible as described above. Baltazar Nieto MD Multiplanar Reconstruction 12/07/16 1349 Signed Impressions: Service Date/Time: Wednesday, December 07, 2016 12:23 - CONCLUSION: 3-D reconstructions reveal anatomic alignment extensive plate and screws.. Cristofer Navas MD FACR Maxillofacial CT 12/06/16 0000 Signed Impressions: Service Date/Time: Tuesday, December 06, 2016 12:23 - CONCLUSION: 1. There has been prior plating of a mandibular fracture. There is a large area of abnormal soft tissue and a septated fluid collection involving the right pipe stripper space with extension into the masseter muscle on the right and up into the right parotid gland. There is rarefaction of bone around the patient's plate. Findings would be consistent with osteomyelitis and abscess. Findings are discussed in detail above. Sage Navas MD Chest X-Ray 12/06/16 0000 Signed Impressions: Service Date/Time: Tuesday, December 06, 2016 12:08 - CONCLUSION: 1. There is a new area of atelectasis or infiltrate at the left lung base. Pneumonia is not excluded. 2. COPD changes. Sage Navas MD PE at Discharge GENERAL: Alert and oriented in Place and Person. CARDIOVASCULAR: Regular rate and rhythm. No murmur appreciated. RESPIRATORY: Decreased breath sounds bilateral, No wheezing or crackles. GASTROINTESTINAL: Abdomen soft, non-tender, nondistended. Hepatic and splenic margins not palpable. MUSCULOSKELETAL: No obvious deformities. No clubbing. No cyanosis. Symmetric edema of the lower legs NEUROLOGICAL: Awake and alert. No obvious cranial nerve deficits. Motor grossly within normal limits. Normal speech. PSYCHIATRIC: Appropriate mood and affect; insight and judgment normal. Pt update on day of discharge in the chair eating better. Walked with PT cleared for dc. Less tremors. patient denies any fever or chill. No n/v/d/c. Hospital Course Osteomyelitis and Abscess of the Right Mandibular area, status post CT scan of Facial Bones with Contrast with Diagnosis There has been prior plating of a mandibular fracture. There is a large area of abnormal soft tissue and a septated fluid collection involving the right pipe stripper space with extension into the masseter muscle on the right and up into the right parotid gland. There is rarefaction of bone around the patient's plate. Findings would be consistent with osteomyelitis and abscess, he left AMA in June and did not wanted to pursue treatment, status post IV fluids, found Thrombocytopenia probable secondary to alcohol abuse and probable Liver pathology, With Diagnosis of Failed hardware right mandible angle region, Abscess right mandible , status post Incision and drainage right mandible abscess, Removal of the failed hardware right mandible, Irrigation and debridement or the right mandible , Biopsy right mandible tissue, closed reduction of the right mandible fracture. on Unasyn. drainages removed Improving condition. Alcohol abuse with Delirium Tremens was in ICU on Precedex, now on the floor off precedex, continue CIWA protocol. Improving DTs continue CIWA and following electrolytes. Severe electrolyte derangement at this time no new laboratory in EMR follow during the day for replacement if needed. COPD stable on Bronchodilator, Mucolytic and Incentive spirometry Thrombocytopenia/Anemia follow CBC in am tomorrow. LFTs elevated in the past asked for hepatitis profile Polysubstance abuse in the past drug screen now Lower extremity lesions wound care to follow. Tobacco dependence strongly recommended to stop smoking, nicotine patch DVT prophylaxis with SCDs Code Status Full Code. Discussed Condition With Patient and nurse Miss Modi in the room. Discharge Planning Once improved, still with EtOH withdrawals, DC when improved poss tomorrow Cleared by specialists. To f/u as OP with Dr Abreu .Discussed with Dr Abreu. Patient is not compliant, he had multiple surgeries 2/2 noncompliance , persistent ETOH use. Pt Condition on Discharge: Stable Discharge Disposition: Discharge Home Discharge Time: > 30 minutes Discharge Instructions DIET: Follow Instructions for: As Tolerated, No Restrictions Activities you can perform: Weight Bearing as Lani Follow up Referrals: Oral Maxillary Surgery - 1 Week with Adan Joseph DMD PCP Follow-up - 2-3 Days New Medications: Amoxicillin-Clavulanate Liq (Augmentin Liq) 250-62.5 Mg/5 Ml Susp 500 MG PO TID for Infection for 60 Days, #300 ML 0 Refills 500 mg (10 mL). Substitute the 250-62.5 mg/5 ml susp. for the 500 mg tab for adults having difficulty swallowing. Chlordiazepoxide HCl (Chlordiazepoxide HCl) 25 Mg Capsule 25 MG PO TID PRN for SEVERE ANXIETY OR AGITATION, #20 MG Thiamine HCl (Gnp Vitamin B-1) 100 Mg Tab 100 MG PO DAILY for mvt, #30 TAB Continued Medications: Albuterol 18 GM Inh (Ventolin Hfa 18 GM Inh) 90 Mcg/Act Aer 2 PUFF INH Q4H PRN for SHORTNESS OF BREATH, #1 INHALER 0 Refills Irma Guadalupe MD Dec 15, 2016 16:18
[2016-12-15] MEDS ORDERED: GNP100TA3 PO (16:21)
[2016-12-15] MEDS ORDERED: CHLO25CA9 PO (16:21)
[2016-12-15] MEDS: LORazepam 1 MG TAB PO PRN ×2 (16:22→20:25)
[2016-12-15] MEDS: MORPHINE SULFATE ORAL SOLN 10 MG/0.5 ML SYRINGE SL PRN (16:52)
[2016-12-16] MEDS: MORPHINE SULFATE ORAL SOLN 10 MG/0.5 ML SYRINGE SL PRN ×3 (00:08→12:44)
[2016-12-16] MEDS: AMPICILLIN-SULBACTAM INJ 3 GM in SODIUM CHLORIDE 0.9% INJ 100 ML IV SCH ×3 (00:09→12:45)
[2016-12-16 00:51] VITALS: BP 120/77; PULSE 76; RESP 16; TEMP 96.1; O2SAT 97
[2016-12-16 04:00] VITALS: BP 95/64; PULSE 84; RESP 18; TEMP 95.9; O2SAT 96
[2016-12-16] MEDS: SODIUM CHLOR 0.9% 1000 ML INJ 1,000 ML IV SCH (06:04)
[2016-12-16 08:00] VITALS: BP 106/55; PULSE 80; RESP 19; TEMP 98.7; O2SAT 95
[2016-12-16] MEDS: LACTULOSE SYRUP 20 GM/30 ML CUP PO SCH (09:00)
[2016-12-16] MEDS: DOCUSATE SODIUM 50 MG/SENNA 8.6 MG TAB PO SCH (09:00)
[2016-12-16] MEDS: SODIUM CHLORIDE 0.9% FLUSH 10 ML FLUSH IV FLUSH SCH ×2 (09:00→10:02)
[2016-12-16] MEDS: NICOTINE 14 MG/24 HR PATCH T-DERMAL SCH (09:56)
[2016-12-16] MEDS: REMOVE OLD PATCH T-DERMAL SCH (09:57)
[2016-12-16] MEDS: MAGNESIUM OXIDE 400 MG TAB PO SCH (09:58)
[2016-12-16] MEDS: guaiFENesin E.R. 600 MG TAB PO SCH (09:59)
[2016-12-16] MEDS: THIAMINE HCL 100 MG TAB PO SCH (10:01)
[2016-12-16 12:00] VITALS: BP 121/69; PULSE 111; RESP 19; TEMP 96.9; O2SAT 98
[2016-12-16] MEDS ORDERED: SODIUM CHLOR 0.9% 1000 ML INJ 1,000 ML IV ONE (12:30)
== END 2016-12-16 14:17 | disposition home or self-care (01) | DRG 131 ==
LOC: HEDF 11:27 → NEDA 14:13 → N06A 17:16 → N03B 12-07 18:41 → HPAC 12-07 20:57 → N07A 12-08 14:22 → N03A 12-09 06:44 → N07A 12-12 00:13
PROVIDERS: ADMIT Hospitalist; ATTEND Hospitalist
PROC: 0N9 Head and Facial Bones, Drainage (ICD-10-PCS; 2016-12-07)
PROC: 0JB10ZX Excision of Face Subcutaneous Tissue and Fascia, Open Approach, Diagnostic (ICD-10-PCS; 2016-12-07)
PROC: 0NST35Z Reposition Right Mandible with External Fixation Device, Percutaneous Approach (ICD-10-PCS; 2016-12-07)
PROC: 0NPW04Z Removal of Internal Fixation Device from Facial Bone, Open Approach (ICD-10-PCS; principal; 2016-12-07 16:20)
DX: M27.2 Inflammatory conditions of jaws (principal); F10.231 Alcohol dependence with withdrawal delirium; R64 Cachexia; D69.59 Other secondary thrombocytopenia; T84.298A Other mechanical complication of internal fixation device of other bones, initial encounter; L03.211 Cellulitis of face; I10 Essential (primary) hypertension; J44.9 Chronic obstructive pulmonary disease, unspecified; D64.9 Anemia, unspecified; I25.10 Atherosclerotic heart disease of native coronary artery without angina pectoris; G47.33 Obstructive sleep apnea (adult) (pediatric); M54.9 Dorsalgia, unspecified; G89.29 Other chronic pain; B95.4 Other streptococcus as the cause of diseases classified elsewhere; M60.88 Other myositis, other site; F10.229 Alcohol dependence with intoxication, unspecified; F17.210 Nicotine dependence, cigarettes, uncomplicated; Y83.8 Other surgical procedures as the cause of abnormal reaction of the patient, or of later complication, without mention of misadventure at the time of the procedure; Y90.8 Blood alcohol level of 240 mg/100 ml or more; Z59.0 Homelessness; Z68.20 Body mass index [BMI] 20.0-20.9, adult; Z78.1 Physical restraint status; Z86.14 Personal history of Methicillin resistant Staphylococcus aureus infection; Z91.19 Patient's noncompliance with other medical treatment and regimen
CPT/HCPCS: 70140; 70487; 71010; 76377; 76937; 80048; 80074; 80076; 80307; 82948; 83735; 84100; 84132; 84155; 85007; 85025; 85027; 85610; 85730; 86403; 87015; 87040; 87070; 87102; 87116; 87205; 87206; 87641; 88305; 88311; 93005; 94640; 94664; J0131; J0295; J0610; J0690; J1040; J1100; J1170; J1630; J2060; J2270; J2370; J2405; J2543; J2710; J2930; J3010; J3411; J3475; J3480; J7030; J7040; J7611; J7644; Q9967

== ENCOUNTER 2017-07-22 23:48 | Emergency (ER) | payer BC ==
[~2017-07-22] VITALS: Ht 177.8 cm; Wt 61.5 kg
[~2017-07-22 23:48] MED LIST changes: +AUGM250S2 PO; -AUGM875T PO; +CHLO25CA9 PO; -MULT1TAB84 PO; -PERI0.126 SWISH-SPIT; +THIA100 PO
[2017-07-22 23:50] VITALS: BP 131/88; PULSE 103; RESP 18; TEMP 97.7; O2SAT 96
[2017-07-22 23:54] VITALS: BP 158/98; PULSE 75; RESP 20; TEMP 97.9; O2SAT 99
[2017-07-23] MEDS ORDERED: BUPR12MI SL (00:04)
[2017-07-23] MEDS ORDERED: VALS320T6 PO (00:04)
--- NOTE | 2017-07-23 00:17 | PD ---
HPI Chief Complaint: Neuro Symptoms/ Deficits Time Seen by Provider: 00:05 Travel History International Travel<30 days: No Contact w/Intl Traveler<30days: No Traveled to known affect area: No History of Present Illness HPI 47-year-old male complains of shortness of breath. Patient states that the symptoms started today. Patient has history of alcohol abuse. Last drink was earlier today. Patient has bilateral lower extremity lesions that he complained of persistent problem for the past year. Patient denies any headache. Patient denies any chest pain. Patient denies abdominal pain. Patient denies any nausea vomiting diarrhea. PFSH Past Medical History Hx Anticoagulant Therapy: No Asthma: Yes Blood Disorders: No Cancer: No Cardiovascular Problems: Yes (HTN) Chemotherapy: No COPD: Yes Diminished Hearing: No Endocrine: No Gastrointestinal Disorders: No Genitourinary: No Headaches: Yes Hypertension: Yes Immune Disorder: No Implanted Vascular Access Dvce: Yes Musculoskeletal: Yes Neurologic: Yes (CHRONIC BACK PAIN) Psychiatric: No Reproductive: No Respiratory: Yes (ASTHMA, COPD) Pneumonia: Yes Radiation Therapy: No Sleep Apnea: Yes Past Surgical History Body Medical Devices: METAL PLACE IN JAW/ FACE AREA Oral Surgery: Yes (METAL PLATE IN JAW) Other Surgery: Yes ("Plates in (R) jaw) Social History Alcohol Use: Yes ("beer all day") Tobacco Use: Yes (PPD) Substance Use: No Allergies-Medications (Allergen,Severity, Reaction): Coded Allergies: *MDRO Multi-Drug Resistant Organism (Verified Adverse Reaction, Unknown, 12/06/16) MRSA (thigh wound) 2003 MRSA PCR (nares) positive - 07/08/15 Reported Meds & Prescriptions Reported Meds & Active Scripts Active Reported Valsartan-Hydrochlorothiazide 320-25 Mg Tab 1 Tab PO DAILY Suboxone Sublingual Film (Buprenorphine-Naloxone Sublingual Film) 12-3 Mg Film 1 Film SL Unique id number required: Review of Systems General / Constitutional: No: Fever Eyes: No: Visual changes HENT: No: Headaches Cardiovascular: No: Chest Pain or Discomfort Respiratory: Positive: Shortness of Breath Gastrointestinal: No: Abdominal Pain Genitourinary: No: Dysuria Musculoskeletal: No: Pain Skin: No Rash Neurologic: No: Weakness Psychiatric: No: Depression Endocrine: No: Polydipsia Hematologic/Lymphatic: No: Easy Bruising Physical Exam Narrative GENERAL: Well-nourished, well-developed patient. SKIN: Focused skin assessment warm/dry. Patient had multiple circular lesions on bilateral feet. The lesions have crusted material without discharge. No tenderness on palpation. HEAD: Normocephalic. EYES: No scleral icterus. No injection or drainage. NECK: Supple, trachea midline. No JVD or lymphadenopathy. CARDIOVASCULAR: Regular rate and rhythm without murmurs, gallops, or rubs. RESPIRATORY: Breath sounds equal bilaterally. No accessory muscle use. GASTROINTESTINAL: Abdomen soft, non-tender, nondistended. MUSCULOSKELETAL: No cyanosis, or edema. BACK: Nontender without obvious deformity. No CVA tenderness. Neurologic exam: Patient is awake and alert oriented 3. No obvious focal neurological deficit. Data Data Last Documented VS Vital Signs Date Time Temp Pulse Resp B/P (MAP) Pulse Ox O2 Delivery O2 Flow Rate FiO2 07/22/17 23:54 97.9 75 20 158/98 (118) 99 Orders Orders Complete Blood Count With Diff (07/23/17 00:05) Comprehensive Metabolic Panel (07/23/17 00:05) Chest, Single Ap (07/23/17 00:05) Iv Access Insert/Monitor (07/23/17 00:05) Ecg Monitoring (07/23/17 00:05) Oximetry (07/23/17 00:05) Drug Screen, Random Urine (07/23/17 00:05) Alcohol (Ethanol) (07/23/17 00:05) MDM Medical Decision Making Medical Screen Exam Complete: Yes Emergency Medical Condition: Yes Differential Diagnosis Differential diagnosis including URI, bronchitis, pneumonia, reactive airway disease, tinea pedis, cellulitis, impetigo. Narrative Course 47-year-old male complains of shortness of breath. History of alcohol abuse. Chronic lesions bilateral feet. Samuel Abdul MD July 23, 2017 00:17
[2017-07-23 00:33] LABS: AUTOMATED NEUTROPHIL # 2.8 TH/MM3 (1.8-7.7); BASOPHIL # 0.1 TH/MM3 (0-0.2); BASOPHIL % 2.2 % (0.0-2.0); EOSINOPHIL # 0.2 TH/MM3 (0-0.4); EOSINOPHIL % 3.6 % (0.0-4.0); HEMATOCRIT 39.4 % (39.0-51.0); HEMOGLOBIN 13.2 GM/DL (13.0-17.0); LYMPH % 33.4 % (9.0-44.0); LYMPHOCYTE # 1.9 TH/MM3 (1.0-4.8); MEAN CORPUSCULAR HEMOGLOBIN 29.8 PG (27.0-34.0); MEAN CORPUSCULAR HGB CONC 33.5 % (32.0-36.0); MEAN PLATELET VOLUME 8.2 FL (7.0-11.0); MONO % 11.5 % (0.0-8.0); MONOCYTE # 0.7 TH/MM3 (0-0.9); NEUT % 49.3 % (16.0-70.0); PLATELET COUNT 49 TH/MM3 (150-450); RED BLOOD COUNT 4.42 MIL/MM3 (4.50-5.90); RED CELL DISTRIBUTION WIDTH 15.5 % (11.6-17.2); WHITE BLOOD COUNT 5.7 TH/MM3 (4.0-11.0)
--- NOTE | 2017-07-23 00:37 | RADRPT ---
EXAM DATE: 07/23/2017 12:33 AM EDT AGE/SEX: 47 years / Male INDICATIONS: Shortness of breath CLINICAL DATA: This is the patient's initial encounter. Patient reports that signs and symptoms have been present for 2 days and indicates a pain score of 0/10. MEDICAL/SURGICAL HISTORY: . Chronic obstructive pulmonary disease. Asthma. Pneumonia None. COMPARISON: [facility] – [place], CHEST SINGLE AP, 12/06/2016. . FINDINGS: A single AP view of the chest demonstrates the lungs to be symmetrically aerated without evidence of mass, infiltrate or effusion. The cardiomediastinal contours are unremarkable. Osseous structures a re intact. CONCLUSION: No acute cardiopulmonary process. Electronically signed by: Benny Templeton MD 07/23/2017 12:36 AM EDT
[2017-07-23 00:42] LABS: CHLORIDE 103 MEQ/L (98-107); SODIUM (NA) 134 MEQ/L (136-145)
[2017-07-23 00:45] LABS: CALCIUM 8.9 MG/DL (8.5-10.1)
[2017-07-23 00:46] LABS: BLOOD UREA NITROGEN 5 MG/DL (7-18); GLUCOSE,RANDOM 91 MG/DL (74-106)
[2017-07-23 00:49] LABS: ALT (GPT) 109 U/L (12-78); AST (GOT) 259 U/L (15-37); CREATININE 0.69 MG/DL (0.60-1.30); GLOMERULAR FILTRATION RATE 122 ML/MIN (>89)
[2017-07-23 00:50] LABS: TOTAL BILIRUBIN ADULT 0.6 MG/DL (0.2-1.0); TOTAL PROTEIN 9.5 GM/DL (6.4-8.2)
[2017-07-23 00:52] LABS: ALKALINE PHOSPHATASE 103 U/L (45-117)
[2017-07-23 01:01] VITALS: BP 112/86; PULSE 99; RESP 18; O2SAT 97
--- NOTE | 2017-07-23 02:02 | PD ---
Physical Exam Narrative GENERAL: SKIN: Warm and dry. HEAD: Atraumatic. Normocephalic. EYES: Pupils equal and round. No scleral icterus. No injection or drainage. ENT: No nasal bleeding or discharge. Mucous membranes pink and moist. NECK: Trachea midline. No JVD. CARDIOVASCULAR: Regular rate and rhythm. RESPIRATORY: No accessory muscle use. Clear to auscultation. Breath sounds equal bilaterally. GASTROINTESTINAL: Abdomen soft, non-tender, nondistended. MUSCULOSKELETAL: Extremities without clubbing, cyanosis, or edema. No obvious deformities. tinea pedis noted on feet NEUROLOGICAL: Awake and alert. No obvious cranial nerve deficits. Motor grossly within normal limits. Five out of 5 muscle strength in the arms and legs. Normal speech. PSYCHIATRIC: Appropriate mood and affect; insight and judgment normal. Data Data Last Documented VS Vital Signs Date Time Temp Pulse Resp B/P (MAP) Pulse Ox O2 Delivery O2 Flow Rate FiO2 07/23/17 02:28 86 18 112/86 (95) 94 Room Air 07/22/17 23:50 97.7 Orders Orders Complete Blood Count With Diff (07/23/17 00:05) Comprehensive Metabolic Panel (07/23/17 00:05) Chest, Single Ap (07/23/17 00:05) Iv Access Insert/Monitor (07/23/17 00:05) Ecg Monitoring (07/23/17 00:05) Oximetry (07/23/17 00:05) Drug Screen, Random Urine (07/23/17 00:05) Alcohol (Ethanol) (07/23/17 00:05) Ed Discharge Order (07/23/17 04:24) Labs Laboratory Tests Test 07/23/17 00:05 07/23/17 01:10 White Blood Count 5.7 TH/MM3 Red Blood Count 4.42 MIL/MM3 Hemoglobin 13.2 GM/DL Hematocrit 39.4 % Mean Corpuscular Volume 89.0 FL Mean Corpuscular Hemoglobin 29.8 PG Mean Corpuscular Hemoglobin Concent 33.5 % Red Cell Distribution Width 15.5 % Platelet Count 49 TH/MM3 Mean Platelet Volume 8.2 FL Neutrophils (%) (Auto) 49.3 % Lymphocytes (%) (Auto) 33.4 % Monocytes (%) (Auto) 11.5 % Eosinophils (%) (Auto) 3.6 % Basophils (%) (Auto) 2.2 % Neutrophils # (Auto) 2.8 TH/MM3 Lymphocytes # (Auto) 1.9 TH/MM3 Monocytes # (Auto) 0.7 TH/MM3 Eosinophils # (Auto) 0.2 TH/MM3 Basophils # (Auto) 0.1 TH/MM3 CBC Comment AUTO DIFF Differential Comment AUTO DIFF CONFIRMED Platelet Estimate LOW Platelet Morphology Comment ENLARGED Blood Urea Nitrogen 5 MG/DL Creatinine 0.69 MG/DL Random Glucose 91 MG/DL Total Protein 9.5 GM/DL Albumin 4.0 GM/DL Calcium Level 8.9 MG/DL Alkaline Phosphatase 103 U/L Aspartate Amino Transf (AST/SGOT) 259 U/L Alanine Aminotransferase (ALT/SGPT) 109 U/L Total Bilirubin 0.6 MG/DL Sodium Level 134 MEQ/L Potassium Level 3.3 MEQ/L Chloride Level 103 MEQ/L Carbon Dioxide Level 23.0 MEQ/L Anion Gap 8 MEQ/L Estimat Glomerular Filtration Rate 122 ML/MIN Ethyl Alcohol Level 314 MG/DL Urine Opiates Screen NEG Urine Barbiturates Screen NEG Urine Amphetamines Screen POS Urine Benzodiazepines Screen NEG Urine Cocaine Screen NEG Urine Cannabinoids Screen NEG MDM Medical Record Reviewed: Yes Supervised Visit with AWA: No Narrative Course CBC shows no leukocytosis, no anemia, however does show mild thrombocytopenia 49 ,000, but no left shift Toxicologies positive for amphetamines and alcohol level 314 Electrolytes are within normal limits, normal kidney function however AST and ALT were elevated at 259 and 109 respectively, but with a normal bilirubin and alkaline phosphatase These findings are most likely secondary to EtOH use Patient was able to ambulate under his own power, was able to tolerate p.o. and had multiple Gatorade drinks without experiencing any type of nausea or vomiting. Patient is clinically sober, asking for food and for snacks. Diagnosis Primary Impression: Alcohol abuse Additional Impression: tinea pedis Patient Instructions: Alcohol Use Disorder (DC), General Instructions Scripts Nystatin-Triamcinolone (Nystatin-Triamcinolone) 100,000-0.1 Unit/Gm Oint 1 APPLIC TOPICAL Q12HR for Infection, #60 GM 0 Refills Prov: Franky Morrell MD 07/23/17 Disposition: 01 DISCHARGE HOME Condition: Stable Franky Morrell MD July 23, 2017 02:02
[2017-07-23 02:28] VITALS: BP_SYST 110; BP_SYST 112; BP_DIAS 57; BP_DIAS 86; PULSE 86; RESP 18; O2SAT 94
[2017-07-23] MEDS ORDERED: NYST1OIN TOPICAL (04:26)
[2017-07-23 04:42] VITALS: BP 111/69
== END 2017-07-23 04:48 | disposition home or self-care (01) ==
LOC: PHED 23:48
DX: F10.10 Alcohol abuse, uncomplicated (principal); B35.3 Tinea pedis; I10 Essential (primary) hypertension; J45.909 Unspecified asthma, uncomplicated; J44.9 Chronic obstructive pulmonary disease, unspecified; Z72.0 Tobacco use; Z79.899 Other long term (current) drug therapy
CPT/HCPCS: 71045; 80053; 80307; 85025; 99284

== ENCOUNTER 2017-08-12 10:44 | Emergency (ER) | payer BC ==
[~2017-08-12 10:44] MED LIST changes: -AUGM250S2 PO; -CHLO25CA9 PO; +NYST1OIN TOPICAL; -THIA100 PO; -VENTAER INH
[2017-08-12 11:11] VITALS: BP 95/63; PULSE 94; RESP 17; TEMP 98.4; O2SAT 95
[2017-08-12 11:27] VITALS: BP 120/77; PULSE 88; RESP 18; O2SAT 96
[2017-08-12] MEDS ORDERED: RESP: ALBUTEROL 2.5 MG/IPRATROPIUM 0.5 MG NEB (SCH) INH ONE (11:30)
[2017-08-12] MEDS ORDERED: predniSONE 20 MG TAB PO ONE (11:30)
--- NOTE | 2017-08-12 11:30 | PD ---
HPI Chief Complaint: Cold / Flu Symptoms Time Seen by Provider: 11:17 Travel History International Travel<30 days: No Contact w/Intl Traveler<30days: No Traveled to known affect area: No History of Present Illness HPI 47-year-old male presents to the emergency department via EMS with complaint of sore throat 2 days and shortness of breath that has been on and off for the past few months. He has history of COPD. Patient is disheveled and smells of alcohol. He reports drinking 2 beers today. Says he has been using his inhaler and last used it this morning with some relief of his shortness of breath. Reports wheezing. Denies fever, vomiting. Denies nasal congestion, ear pain. Reports occasional cough. Symptoms are mild to moderate in severity. No known aggravating factors. Some relief with albuterol inhaler. Primary CARE providers Dr. Archie Castañeda. No known allergies. History of COPD. Has no other medical complaints. No other modifying factors or associated signs and symptoms. PFSH Past Medical History Hx Anticoagulant Therapy: No Asthma: Yes Blood Disorders: No Cancer: No Cardiovascular Problems: Yes (HTN) Chemotherapy: No COPD: Yes Diminished Hearing: No Endocrine: No Gastrointestinal Disorders: No Genitourinary: No Headaches: Yes Hypertension: Yes Immune Disorder: No Implanted Vascular Access Dvce: Yes Musculoskeletal: Yes Neurologic: Yes (CHRONIC BACK PAIN) Psychiatric: No Reproductive: No Respiratory: Yes Pneumonia: Yes Radiation Therapy: No Sleep Apnea: Yes Past Surgical History Body Medical Devices: METAL PLACE IN JAW/ FACE AREA Oral Surgery: Yes (METAL PLATE IN JAW) Other Surgery: Yes ("Plates in (R) jaw) Social History Alcohol Use: Yes ("beer all day") Tobacco Use: Yes (PPD) Substance Use: No Allergies-Medications (Allergen,Severity, Reaction): Coded Allergies: *MDRO Multi-Drug Resistant Organism (Verified Adverse Reaction, Unknown, 12/06/16) MRSA (thigh wound) 2003 MRSA PCR (nares) positive - 07/08/15 Reported Meds & Prescriptions Reported Meds & Active Scripts Active Deltasone (Prednisone) 20 Mg Tab 40 Mg PO DAILY 4 Days start 08/13/2017 Azithromycin 500 Mg Tab 500 Mg PO DAILY Ventolin Hfa 18 GM Inh (Albuterol Sulfate) 90 Mcg/Act Aer 2 Puff INH Q4-6H PRN Nystatin-Triamcinolone 100,000-0.1 Unit/Gm Oint 1 Applic TOPICAL Q12HR Review of Systems Except as stated in HPI: all other systems reviewed are Neg Physical Exam Narrative GENERAL: Thin, patient, in no acute distress; afebrile, nontoxic- appearing; disheveled, smells of alcohol SKIN: Warm and dry. HEAD: Atraumatic. Normocephalic. EYES: Pupils equal and round. No scleral icterus. No injection or drainage. ENT: Mucosa pink and moist. No erythema or exudates. No uvular edema. No uvular , palatal, or tonsillar deviation. Airway patent. Nares without nasal blood, purulent drainage or septal hematoma. EARS: Bilateral pinnae and external canals appear within normal limits. Bilateral tympanic membranes without erythema, dullness or perforation. NECK: Trachea midline. No lymphadenopathy. CARDIOVASCULAR: Regular rate and rhythm. No murmur appreciated. RESPIRATORY: No accessory muscle use. Lungs with Wheezing throughout to auscultation. Breath sounds equal bilaterally. No retractions or tachypnea. No Audible wheezing noted. GASTROINTESTINAL: Abdomen soft, non-tender, nondistended. Hepatic and splenic margins not palpable. Bowel sounds are active 4 quadrants. MUSCULOSKELETAL: No obvious deformities. No clubbing. No cyanosis. No edema. NEUROLOGICAL: Awake and alert. Oriented 3. No obvious cranial nerve deficits. Motor grossly within normal limits. Normal speech. Moves all extremities. 5/5 strength to all extremities. PSYCHIATRIC: Appropriate mood and affect; insight and judgment normal. Data Data Last Documented VS Vital Signs Date Time Temp Pulse Resp B/P (MAP) Pulse Ox O2 Delivery O2 Flow Rate FiO2 08/12/17 11:27 88 18 120/77 (91) 96 Room Air 08/12/17 11:11 98.4 Orders Orders Prednisone (Deltasone) (08/12/17 11:30) Albuterol-Ipratropium Neb (Duoneb Neb) (08/12/17 11:30) Group A Rapid Strep Screen (08/12/17 11:26) Chest, Pa & Lat (08/12/17 11:26) Strep Culture (Group A) (08/12/17 11:49) MDM Medical Decision Making Medical Screen Exam Complete: Yes Emergency Medical Condition: Yes Medical Record Reviewed: Yes Differential Diagnosis COPD exacerbation, pneumonia, sore throat, viral illness, strep pharyngitis Narrative Course 47-year-old male presents via EMS for complaint of shortness of breath on and off for the past few months secondary to his COPD and sore throat 2 days. He smells of alcohol and admits to drinking 2 beers today. He is in no acute distress. Oxygen saturation is 96% on room air. Blood pressure recheck within normal limits. No retractions or tachypnea. DuoNeb, Deltasone, rapid strep, chest x-ray ordered. 1155: Chest x-ray with no acute findings. 1240: Rapid strep negative. On reexamination the patient has no wheezing on auscultation of lung sounds. Azithromycin, Deltasone, Ventolin inhaler prescribed for home. Patient is able to ambulate without difficulty and is clinically sober and safe for discharge. instructed patient to follow up with primary care provider. Patient verbalizes understanding and agreement with treatment plan. Patient is medically cleared and stable for discharge. Discussed reasons to return to the emergency department. Patient agrees with treatment plan. The patients vital signs are stable and the patient is stable for outpatient follow-up and treatment. Patient discharged home, stable and in no acute distress. Diagnosis Primary Impression: COPD exacerbation Additional Impression: Viral illness Referrals: [facility] Primary Care Physician Patient Instructions: COPD (Chronic Obstructive Pulmonary Disease) (ED), General Instructions, Pharyngitis (ED) Additional Instructions: Use Albuterol inhaler as prescribed Take oral steroids as prescribed and complete full course [id number] decongestants or antihistamines as directed and as needed for symptom management Drink plenty of fluids to prevent dehydration Use hot air humidifier to decrease cough exacerbation Turn off ceiling fans and sleep with head of bed elevated Avoid triggers such as second hand smoke, dust, known allergens Follow-up with your primary care provider Return to the emergency department immediately with worsening of symptoms Med/Other Pt SpecificInfo: Prescription(s) given Scripts Prednisone (Deltasone) 20 Mg Tab 40 MG PO DAILY for 4 Days, #8 TAB 0 Refills start 08/13/2017 Prov: Marleny Hernandez 08/12/17 Azithromycin (Azithromycin) 500 Mg Tab 500 MG PO DAILY for Infection, #5 TAB 0 Refills Prov: Marleny HernandezP 08/12/17 Albuterol 18 GM Inh (Ventolin Hfa 18 GM Inh) 90 Mcg/Act Aer 2 PUFF INH Q4-6H Y for SOB/WHEEZING, #1 INHALER 0 Refills Prov: Marleny Hernandez 08/12/17 Disposition: 01 DISCHARGE HOME Condition: Stable Marleny Hernandez Aug 12, 2017 11:30
[2017-08-12] MEDS ORDERED: AZIT500T2 PO (11:37)
[2017-08-12] MEDS ORDERED: PRED-503 PO (11:37)
[2017-08-12] MEDS ORDERED: VENTAER INH (11:37)
--- NOTE | 2017-08-12 11:53 | RADRPT ---
EXAM DATE: 08/12/2017 11:47 AM EDT AGE/SEX: 47 years / Male INDICATIONS: Short of breath for a year. CLINICAL DATA: This is the patient's initial encounter. Patient reports that signs and symptoms have been present for > 1 year and indicates a pain score of 7/10. MEDICAL/SURGICAL HISTORY: Hypertension. Chronic obstructive pulmonary disease. Asthma. Smoker. None. [place] [facility] [place]. . FINDINGS: PA and lateral views of the chest demonstrate the lungs to be symmetrically aerated without evidence of mass, infiltrate or effusion. The cardiomediastinal contours are unremarkable. Osseous structures are intact. CONCLUSION: Negative examination. Electronically signed by: Toño Santos MD 08/12/2017 11:52 AM EDT
== END 2017-08-12 13:19 | disposition home or self-care (01) ==
LOC: NEPK 10:44
DX: J44.1 Chronic obstructive pulmonary disease with (acute) exacerbation (principal); B34.9 Viral infection, unspecified; R07.0 Pain in throat; I10 Essential (primary) hypertension; G47.30 Sleep apnea, unspecified; Z72.0 Tobacco use; Z87.39 Personal history of other diseases of the musculoskeletal system and connective tissue
CPT/HCPCS: 71046; 87081; 87880; 94664; 99284; J7512